=== PATIENT | female | born 1965 | race Caucasian/White ===

== ENCOUNTER 2018-04-13 10:55 | Emergency (ER) | payer MEDICARE ==
[~2018-04-13] VITALS: Ht 152.4 cm; Wt 64.4 kg
[2018-04-13 11:30] VITALS: BP 127/74
--- NOTE | 2018-04-13 12:51 | RAD ---
Left lower extremity venous Doppler. HISTORY: Left leg edema Venous Doppler was used to evaluate the veins of the left lower extremity. Real-time imaging with compression, color flow imaging and Doppler with augmentation were utilized for evaluation. The common femoral, femoral and popliteal veins are noncompressible. There was no flow with color imaging. The findings are consistent with deep venous thrombosis. There is also evidence of thrombosis of the proximal greater saphenous vein which is not compressible and extending into the origin of the deep femoral vein which is not compressible. There is also lack of compressibility of the proximal posterior tibial and peroneal veins in the calf, those veins do not have flow with color imaging.. IMPRESSION: 1. Extensive deep venous thrombosis in the left lower extremity. Electronically signed by: Iam Rivera MD (04/13/2018 12:47 PM) [facility]
[2018-04-13 13:09] LABS: BASO # 0.1 x10^3/uL (0.0-0.2); BASO % 1 % (0-3); EOS # 0.2 x10^3/uL (0.0-0.7); EOS % 2 % (0-3); HEMATOCRIT 35.2 % (36.0-47.0); LYMPH # 0.9 x10^3/uL (1.0-4.8); LYMPH % 8 % (24-48); MEAN CORPUSCULAR HEMOGLOBIN 22 pg (25-35); MEAN CORPUSCULAR HGB CONC 31 g/dL (31-37); MEAN CORPUSCULAR VOLUME 72 fL (79-100); MONO # 0.8 x10^3/uL (0.0-1.1); MONO % 7 % (0-9); NEUT # 9.4 x10^3uL (1.8-7.7); NEUT % 83 % (31-73); PLATELET COUNT 265 x10^3/uL (140-400); RED CELL DISTRIBUTION WIDTH 18.3 % (11.5-14.5); WHITE BLOOD COUNT 11.5 x10^3/uL (4.0-11.0)
[2018-04-13 13:15] LABS: PROTHROMBIN TIME PATIENT 12.6 SEC (11.7-14.0)
[2018-04-13 13:18] LABS: CALCIUM 8.9 mg/dL (8.5-10.1); CREATININE 0.7 mg/dL (0.6-1.0); GFR 87.5; POTASSIUM 4.2 mmol/L (3.5-5.1)
[2018-04-13 13:24] LABS: ALBUMIN 3.7 g/dL (3.4-5.0); ALBUMIN/GLOBULIN RATIO 0.9 (1.0-1.7); TOTAL BILIRUBIN 0.5 mg/dL (0.2-1.0)
[2018-04-13] MEDS ORDERED: ONDANSETRON ODT 4 MG TAB.RAPDIS. PO PRN (13:45)
[2018-04-13] MEDS ORDERED: ACETAMINOPHEN 500 MG TABLET PO PRN (13:45)
[2018-04-13] MEDS ORDERED: ACETAMINOPHEN/CODEINE 300/30MG TABLET. PO PRN (13:45)
[2018-04-13] MEDS ORDERED: ANTI-COAG MONITOR BY PHARMACY. MC PRN (13:45)
[2018-04-13] MEDS ORDERED: ONDANSETRON PF 4 MG/2 ML VIAL. IV PRN (13:45)
--- NOTE | 2018-04-13 13:47 | PHYS DOC ---
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 Past Surgical History: , Other Additional Past Surgical Histo: L)ankle to extend tendon,Trach & G-tube with removals. Alcohol Use: None Drug Use: None Adult General Chief Complaint Chief Complaint: LOWER EXTREMITY SWELLING [facility] HPI Patient is a 52 year old female who presents with complaining of left lower extremity edema and pain since this morning. Patient states she woke up this morning and had severe edema of left leg and thigh and pain with bearing weight. Patient denies injury, shortness of breath, fever and chills, focal neuro deficit, history of DVT and PE and recent immobilization. Patient is mildly mentally challenged. Review of Systems Review of Systems Constitutional: Denies fever or chills [] Eyes: Denies change in visual acuity, redness, or eye pain [] HENT: Denies nasal congestion or sore throat [] Respiratory: Denies cough or shortness of breath [] Cardiovascular: No additional information not addressed in HPI [] GI: Denies abdominal pain, nausea, vomiting, bloody stools or diarrhea [] : Denies dysuria or hematuria [] Musculoskeletal: Denies back pain or joint pain [] Integument: Denies rash or skin lesions [] Neurologic: Denies headache, focal weakness or sensory changes [] Endocrine: Denies polyuria or polydipsia [] All other systems were reviewed and found to be within normal limits, except as documented in this note. Current Medications Current Medications Current Medications Medications (Trade) Dose Ordered Sig/[facility] Start Time Stop Time Status Last Admin Dose Admin Enoxaparin Sodium (Lovenox 60mg Syringe) 60 mg 1X ONCE 04/13/18 13:30 04/13/18 13:31 Allergies Allergies Allergies Coded Allergies Type Severity Reaction Last Updated Verified Penicillins Allergy Unknown 04/13/18 Yes Physical Exam Physical Exam Constitutional: Well nourished, mild distress, non-toxic appearance. [] HENT: Normocephalic, atraumatic Eyes: PERRLA, EOMI, conjunctiva normal, no discharge. [] Neck: Normal range of motion, no tenderness, supple, no stridor. [] Cardiovascular:Heart rate regular rhythm, no murmur [] Lungs & Thorax: Bilateral breath sounds clear to auscultation [] Skin: Warm, dry, no erythema, no rash. [] Back: No tenderness, no CVA tenderness. [] Extremities: Left lower extremity with moderate edema and increased size of lower extremity from toes to upper thigh with mild erythema without neurovascular deficit, good peripheral pulses Neurologic: Alert and oriented X 3, normal motor function, normal sensory function, no focal deficits noted. [] Psychologic: Affect normal, judgement normal, mood normal. [] Current Patient Data Vital Signs Vital Signs Date Time Temp Pulse Resp B/P (MAP) Pulse Ox O2 Delivery O2 Flow Rate FiO2 04/13/18 11:30 98.6 94 18 127/74 (91) 98 Room Air 98.6 Lab Values Laboratory Tests Test 04/13/18 12:15 White Blood Count 11.5 x10^3/uL (4.0-11.0) H Red Blood Count 4.90 x10^6/uL (3.50-5.40) Hemoglobin 11.0 g/dL (12.0-15.5) L Hematocrit 35.2 % (36.0-47.0) L Mean Corpuscular Volume 72 fL (79-100) L Mean Corpuscular Hemoglobin 22 pg (25-35) L Mean Corpuscular Hemoglobin Concent 31 g/dL (31-37) Red Cell Distribution Width 18.3 % (11.5-14.5) H Platelet Count 265 x10^3/uL (140-400) Neutrophils (%) (Auto) 83 % (31-73) H Lymphocytes (%) (Auto) 8 % (24-48) L Monocytes (%) (Auto) 7 % (0-9) Eosinophils (%) (Auto) 2 % (0-3) Basophils (%) (Auto) 1 % (0-3) Neutrophils # (Auto) 9.4 x10^3uL (1.8-7.7) H Lymphocytes # (Auto) 0.9 x10^3/uL (1.0-4.8) L Monocytes # (Auto) 0.8 x10^3/uL (0.0-1.1) Eosinophils # (Auto) 0.2 x10^3/uL (0.0-0.7) Basophils # (Auto) 0.1 x10^3/uL (0.0-0.2) Platelet Estimate Pending Laboratory Tests 04/13/18 12:15 EKG EKG [] Radiology/Procedures Radiology/Procedures [facility] [address] [place] [address] IMAGING REPORT Signed PATIENT: ANN GOMEZ ACCOUNT: [id number] : 1965 LOCATION: ER AGE: 52 SEX: F EXAM STATUS: REG ER ORD. PHYSICIAN: ALANA KUO MD REASON: edema PROCEDURE: VENOUS LOWER EXTREMITY LEFT Left lower extremity venous Doppler. HISTORY: Left leg edema Venous Doppler was used to evaluate the veins of the left lower extremity. Real-time imaging with compression, color flow imaging and Doppler with augmentation were utilized for evaluation. The common femoral, femoral and popliteal veins are noncompressible. There was no flow with color imaging. The findings are consistent with deep venous thrombosis. There is also evidence of thrombosis of the proximal greater saphenous vein which is not compressible and extending into the origin of the deep femoral vein which is not compressible. There is also lack of compressibility of the proximal posterior tibial and peroneal veins in the calf, those veins do not have flow with color imaging.. IMPRESSION: 1. Extensive deep venous thrombosis in the left lower extremity. Electronically signed by: Iam Rivera MD (04/13/2018 12:47 PM) [facility] DICTATED and SIGNED BY: IAM RIVERA MD DATE: 04/13/18 1619 Course & Med Decision Making Course & Med Decision Making Pertinent Labs and Imaging studies reviewed. (See chart for details) Evaluation of patient in ER showed 52-year-old female patient with complaining of sudden onset of left lower extremity edema and erythema and pain. Patient had a large DVT in left lower extremity. Because of the eye and large DVT plan to admit patient for inpatient treatment. Patient treated with Lovenox in ER. accepted admission at 1330. Dragon Disclaimer Dragon Disclaimer This electronic medical record was generated, in whole or in part, using a voice recognition dictation system. Departure Departure Impression: Primary Impression: Deep vein thrombosis (DVT) of left lower extremity Additional Impression: TBI (traumatic brain injury) Disposition: ADMITTED INPATIENT (at 1331) Admitting Physician: Deidra Koo (accepted admission at 1330) Condition: STABLE Referrals: LEONID SMITH MD (PCP) Problem Qualifiers ALANA KUO MD Apr 13, 2018 13:47
--- NOTE | 2018-04-13 13:56 | PDOC ---
Provider Note Provider Note I was called by ER Bethany to admit this very pleasant 51-year-old female for an extensive left leg DVT, unprovoked She woke up today with left leg swelling and pain. Found to have extensive DVT, femoral, popliteal, etc. I have provided a copy to the caregiver. Both of them do not want to be admitted. She denies any SOA. She is hemodynamically stable. Labs are remarkable only for mild hyponatremia 130 with mild leukocytosis 11. Hemoglobin is stable at 11. Dr. Jackson is her PCP. She would rather go home on Xarelto 15 twice a day for 7 days then 20 once a day rather than stay in the hospital. She has Medicare. She doesn't mind paying the expense, I am ok with that, I have also also offered the free drug 1 month supply for novel OAC, buts he was ok with the xarelto rx i have given for her. We did draw hypercoag panel bec this is unprovoked. SHe is ambulatory, no recent sxs or long travels, Deneis fam hx of hypercoag state. Past medical history none Past surgical history noncontributory s Social history - no smoking or alcohol or street drugs Review of systems: neg 14 pt reviewed PE: A and O 3,HEENT unremarkable. CTABL, no murmurs or gallops abdomen soft and unremarkable left leg swelling redness but no open lesions, limited range of motion because of the swelling neuro and psych UR A/P: Extensive lEft leg dvt, unprovoked, first episode PLAN:ok for home on xarelto 15 BID x 21 days then 20 qD x 3 mos - with interval US left leg 1 month time SEEN at ER [facility] staff and RN at bedside with the rn intensive care unit DANIELLE EDWARDS MD Apr 13, 2018 13:56
[2018-04-13 14:24] LABS: ANISOCYTOSIS SLIGHT; HYPOCHROMIA MOD; MICROCYTOSIS MOD; OVALOCYTES FEW; PLT ESTIMATE ADEQUATE (ADEQUATE); POLYCHROMASIA SLIGHT
[2018-04-18 06:52] LABS: ANTITHROMBIN III SEE SEPARATE REPORT; CARDIOLIPIN ANTIBODIES SEE SEPARATE REPORT; LUPUS ANTICOAGULANT SEE SEPARATE REPORT; PROTEIN C ACTIVITY SEE SEPARATE REPORT; PROTEIN S ACTIVITY SEE SEPARATE REPORT
== END 2018-04-13 15:39 | disposition home or self-care (01) ==
LOC: ER 10:55
DX: S06.9X0A Unspecified intracranial injury without loss of consciousness, initial encounter (principal); I82.492 Acute embolism and thrombosis of other specified deep vein of left lower extremity; Z86.711 Personal history of pulmonary embolism; Z88.0 Allergy status to penicillin; X58.XXXA Exposure to other specified factors, initial encounter; Y93.89 Activity, other specified; Y92.89 Other specified places as the place of occurrence of the external cause; Y99.8 Other external cause status
CPT/HCPCS: 36415; 80053; 83090; 83605; 83880; 85025; 85610; 93971; 96372; 99285; J1650; 85300; 85302; 85306; 86147

== ENCOUNTER 2018-07-05 13:10 | Inpatient (IN) | payer MEDICARE ==
[2018-07-05] VITALS (15 sets, daily range): BP systolic 99–122; BP diastolic 55–75
[~2018-07-05] VITALS: Ht 152.4 cm; Wt 66.3 kg
[2018-07-05] MEDS ORDERED: IV NORMAL SALINE 1000ML BAG 1,000 ML IV ONE (13:30)
[2018-07-05 13:48] LABS: BASO # 0.1 x10^3/uL (0.0-0.2); BASO % 1 % (0-3); EOS % 0 % (0-3); LYMPH % 8 % (24-48); MEAN CORPUSCULAR HEMOGLOBIN 18 pg (25-35); MEAN CORPUSCULAR HGB CONC 29 g/dL (31-37); MEAN CORPUSCULAR VOLUME 61 fL (79-100); MONO # 0.7 x10^3/uL (0.0-1.1); MONO % 5 % (0-9); NEUT # 11.4 x10^3uL (1.8-7.7); NEUT % 86 % (31-73); PLATELET COUNT 274 x10^3/uL (140-400); RED BLOOD COUNT 1.86 x10^6/uL (3.50-5.40); RED CELL DISTRIBUTION WIDTH 18.8 % (11.5-14.5); WHITE BLOOD COUNT 13.2 x10^3/uL (4.0-11.0)
[2018-07-05 13:57] LABS: HEMATOCRIT 11.3 % (36.0-47.0)
[2018-07-05 13:58] LABS: HEMOGLOBIN 3.3 g/dL (12.0-15.5)
--- NOTE | 2018-07-05 13:58 | PHYS DOC ---
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 Past Surgical History: , Other Additional Past Surgical Histo: L)ankle to extend tendon,Trach & G-tube with removals. Additional Information: nonsmoker Alcohol Use: None Drug Use: None Adult General Chief Complaint Chief Complaint: ABNORMAL LABS HPI HPI Patient is a 53 YO F that is presenting with increased shortness of breath that developed recently and vaginal bleeding that began in April. She has a past medical history of multiple strokes, she was put on Xarelto in April because of a DVT that was found. She presented to her family doctor to be evaluated and the family doctor jakob labs, sent her for outpatient LE ultrasound and transvaginal ultrasound.Today the Hgb came back as 3.4 and she was told to come straight to the hospital from the imaging center. She arrived with a CD of the images but no reports. Dr. Koo was contacted by the family doctor and she thought it was in her best interest to be evaluated in the ED before admission because of the critical lab value. Patient reports lethargy and some shortness of breath. She denies bloody stools, blood in her urine, abdominal pain, nausea , vomiting, and dizziness. Review of Systems Review of Systems Constitutional: Denies fever or chills [] Eyes: Denies change in visual acuity, redness, or eye pain [] HENT: Denies nasal congestion or sore throat [] Respiratory: Denies cough, reports shortness of breath [] Cardiovascular: Denies chest pain or palpitations [] GI: Denies abdominal pain, nausea, vomiting, bloody stools or diarrhea [] : Denies dysuria or hematuria [] Musculoskeletal: Denies back pain or joint pain [] Integument: Denies rash or skin lesions [] Neurologic: Denies headache, focal weakness or sensory changes [] Complete systems were reviewed and found to be within normal limits, except as documented in this note. Current Medications Current Medications Current Medications Medications (Trade) Dose Ordered Sig/Sigifredo Start Time Stop Time Status Last Admin Dose Admin Medroxyprogesterone Acetate (Provera) 10 mg STAT 07/05/18 14:15 07/05/18 14:43 DC Sodium Chloride 1,000 ml @ 1,000 mls/hr 1X ONCE 07/05/18 13:30 07/05/18 14:29 DC 07/05/18 13:47 1,000 MLS/HR Allergies Allergies Allergies Coded Allergies Type Severity Reaction Last Updated Verified Penicillins Allergy Unknown 04/13/18 Yes Physical Exam Physical Exam Constitutional: Well developed, well nourished, no acute distress, non-toxic appearance. [] HENT: Normocephalic, atraumatic, nose normal, dry mucus membranes. [] Eyes: Pale conjunctiva, no discharge. [] Neck: Normal range of motion, no tenderness, supple. [] Cardiovascular: Heart rate regular rhythm, no murmur [] Lungs & Thorax: Bilateral breath sounds clear to auscultation [] Abdomen: Soft, no tenderness, no masses, no pulsatile masses. [] Skin: Warm, dry, no erythema, no rash. [] Back: No tenderness, no CVA tenderness. [] Extremities: No tenderness, no edema. [] Neurologic: Alert and oriented X 3, no focal deficits noted. [] Psychologic: Affect normal, judgement normal, mood normal. [] Current Patient Data Vital Signs Vital Signs Date Time Temp Pulse Resp B/P (MAP) Pulse Ox O2 Delivery O2 Flow Rate FiO2 07/05/18 14:30 107 21 116/56 (76) 100 Room Air 07/05/18 13:15 97.7 97.7 Lab Values Laboratory Tests Test 07/05/18 13:30 07/05/18 14:30 White Blood Count 13.2 x10^3/uL (4.0-11.0) H Red Blood Count 1.86 x10^6/uL (3.50-5.40) L Hemoglobin 3.3 g/dL (12.0-15.5) *L Hematocrit 11.3 % (36.0-47.0) *L Mean Corpuscular Volume 61 fL (79-100) L Mean Corpuscular Hemoglobin 18 pg (25-35) L Mean Corpuscular Hemoglobin Concent 29 g/dL (31-37) L Red Cell Distribution Width 18.8 % (11.5-14.5) H Platelet Count 274 x10^3/uL (140-400) Neutrophils (%) (Auto) 86 % (31-73) H Lymphocytes (%) (Auto) 8 % (24-48) L Monocytes (%) (Auto) 5 % (0-9) Eosinophils (%) (Auto) 0 % (0-3) Basophils (%) (Auto) 1 % (0-3) Neutrophils # (Auto) 11.4 x10^3uL (1.8-7.7) H Lymphocytes # (Auto) 1.0 x10^3/uL (1.0-4.8) Monocytes # (Auto) 0.7 x10^3/uL (0.0-1.1) Eosinophils # (Auto) 0.0 x10^3/uL (0.0-0.7) Basophils # (Auto) 0.1 x10^3/uL (0.0-0.2) Segmented Neutrophils % 94 % (35-66) H Lymphocytes % 3 % (24-48) L Monocytes % 2 % (0-10) Basophils % 1 % (0-3) Platelet Estimate Adequate (ADEQUATE) Hypochromasia Marked Anisocytosis Slight Microcytosis Marked Ovalocytes Occ Prothrombin Time 18.2 SEC (11.7-14.0) H Prothrombin Time INR 1.5 (0.8-1.1) H PTT 30 SEC (24-38) Sodium Level 133 mmol/L (136-145) L Potassium Level 3.1 mmol/L (3.5-5.1) L Chloride Level 100 mmol/L (98-107) Carbon Dioxide Level 22 mmol/L (21-32) Anion Gap 11 (6-14) Blood Urea Nitrogen 11 mg/dL (7-20) Creatinine 0.7 mg/dL (0.6-1.0) Estimated GFR (Cockcroft-Gault) 87.2 BUN/Creatinine Ratio 16 (6-20) Glucose Level 120 mg/dL (70-99) H Calcium Level 8.4 mg/dL (8.5-10.1) L Magnesium Level 2.0 mg/dL (1.8-2.4) Total Bilirubin 0.6 mg/dL (0.2-1.0) Aspartate Amino Transferase (AST) 11 U/L (15-37) L Alanine Aminotransferase (ALT) 18 U/L (14-59) Alkaline Phosphatase 62 U/L (46-116) Total Protein 7.0 g/dL (6.4-8.2) Albumin 3.3 g/dL (3.4-5.0) L Albumin/Globulin Ratio 0.9 (1.0-1.7) L Urine Collection Type Unknown Urine Color Yellow Urine Clarity Cloudy Urine pH 6.0 Urine Specific [place] 1.010 Urine Protein Negative mg/dL (NEG-TRACE) Urine Glucose (UA) Negative mg/dL (NEG) Urine Ketones (Stick) Negative mg/dL (NEG) Urine Blood Large (NEG) Urine Nitrite Negative (NEG) Urine Bilirubin Negative (NEG) Urine Urobilinogen Dipstick 0.2 mg/dL (0.2 mg/dL) Urine Leukocyte Esterase Large (NEG) Urine RBC 0 /HPF (0-2) Urine WBC >40 /HPF (0-4) Urine Squamous Epithelial Cells Mod /LPF Urine Bacteria Many /HPF (0-FEW) Urine Mucus Mod /LPF Urine Test Negative (NEG) Laboratory Tests 07/05/18 13:30 Laboratory Tests 07/05/18 13:30 EKG EKG @1401 sinus tachycardia at 106BPM, left axis deviation, no ST segment elevation Radiology/Procedures Radiology/Procedures PROCEDURE: CT ABD PELV W/ IV CONTRST ONLY CTA chest with contrast and CT abdomen pelvis with contrast dated 07/05/2018. No comparison available. CLINICAL INDICATION: Dyspnea abdominal pain and vaginal bleeding. History of DVT. TECHNIQUE: Contiguous axial imaging of the chest performed after the intravenous administration of 90 cc Omnipaque 350. Study was performed as dedicated protocol with thin cut coronal MIPS 3-D reconstructions. In addition, through the abdomen and pelvis performed in the venous phase. One or more of the following individualized dose reduction techniques were utilized for this examination: 1. Automated exposure control 2. Adjustment of the mA and/or kV according to patient size 3. Use of iterative reconstruction technique Findings: Contrast bolus is adequate. No evidence of central, lobar or segmental pulmonary embolus. Subsegmental branches are not well evaluated based on technique. Heart size within normal limits. No pericardial effusion. There are calcified pretracheal and left hilar lymph nodes. No mediastinal, hilar or axillary lymphadenopathy. Thyroid gland unremarkable. Central airways are patent. Vague groundglass nodular density in the anterior aspect of the right lower lobe measures 9 mm. Lungs are otherwise clear. No consolidation or pleural effusion. No pneumothorax. Mild emphysema. Images of the upper abdomen show small low-density focus in the left lobe liver, likely cyst. Biliary tree normal in caliber. There is a large calcific stone within the gallbladder lumen. No gallbladder wall thickening or pericholecystic fluid. Spleen is normal in size. Adrenal glands and kidneys are unremarkable. No hydronephrosis. Partially opacified GI tract normal in caliber and contour. No focal bowel wall thickening. No inflammatory stranding in the mesentery. The appendix is not clearly identified. No free fluid or lymphadenopathy. Abdominal aorta normal in caliber. The uterus is enlarged measuring 17.7 x 9.3 x 20.2 cm. There multiple mass lesions throughout the myometrium. The endometrial complex is somewhat thickened measuring 1.9 cm. Ovaries are unremarkable. There is a 2 cm ovarian cyst on the right. The mass lesions of the uterus appears to abut and displace the urinary bladder toward the left. There is also possible abutment and compression of the right ureter with mild right-sided pelvocaliectasis. Lesion also abuts the aorta and IVC with associated caval compression. There are prominent gonadal veins, particularly on the right. No significant free fluid or pelvic lymphadenopathy. Bone windows show no acute findings. Multilevel spondylosis. IMPRESSION CHEST: 1. No evidence of central, lobar or segmental pulmonary embolus. 2. Vague groundglass nodular density in the anterior aspect of the right lower lobe, nonspecific. 3. Old granulomatous disease. Impression abdomen pelvis: 1. Large myomatous uterus as described above. 2. The enlarged uterine fibroids appear to compress the urinary bladder. There is also likely compression of the distal right ureter and IVC with mild right-sided pelvocaliectasis and prominent collateral flow of the gonadal veins. No CT evidence of abdominal pelvic venous thrombosis. 3. Cholelithiasis. Electronically signed by: Otf Rodriguez MD (07/05/2018 3:50 PM) [id number] Course & Med Decision Making Course & Med Decision Making Pertinent Labs and Imaging studies reviewed. (See chart for details) Patient is a 53 YO F that is presenting with 4 months of vaginal bleeding after starting Xarelto for a DVT. She was found to have a Hgb of 3.3 on outpatient CBC ordered by her family physician. Hgb rechecked in the ED was found to be 3.4. Transfusion initiated. CT chest/abdomen/pelvis showed no evidence of central, lobar or segmental pulmonary embolus, vague groundglass nodular density in the anterior aspect of the right lower lobe, nonspecific, large myomatous uterus appears to compress the urinary bladder there is also likely compression of the distal right ureter and IVC. UA showed probable UTI with white cells and bacteria, antibiotics initiated. EKG WNL, no ST segment elevation. Dragon Disclaimer Dragon Disclaimer This electronic medical record was generated, in whole or in part, using a voice recognition dictation system. Departure Departure Impression: Primary Impression: Severe anemia Additional Impressions: Hx of deep venous thrombosis Menometrorrhagia Disposition: ADMITTED INPATIENT Admitting Physician: Deidra Koo Condition: GUARDED Referrals: LEONID SMITH MD (PCP) Critical Care Time Critical care time was 30 minutes which includes time at bedside, spent in discussion of patient's care with specialists and/or family members, with interpretation of laboratory and/or radiological studies and is exclusive of procedures. Problem Qualifiers OTF HARMON DO Jul 05, 2018 13:58
[2018-07-05 14:05] LABS: PROTHROMBIN TIME PATIENT 18.2 SEC (11.7-14.0)
[2018-07-05 14:12] LABS: ALBUMIN 3.3 g/dL (3.4-5.0); ALBUMIN/GLOBULIN RATIO 0.9 (1.0-1.7); CALCIUM 8.4 mg/dL (8.5-10.1); CREATININE 0.7 mg/dL (0.6-1.0); GFR 87.2; TOTAL BILIRUBIN 0.6 mg/dL (0.2-1.0)
--- NOTE | 2018-07-05 14:16 | EKG ---
[facility] [address] [place] [address] Test Date: 2018-07-05 Test Time: 14:01:35 Pat Name: ANN GOMEZ Department: Room: Gender: F Sponsorship Coordinator: : 1965 Requested By: JENN HARMON Order Number: [id number] Reading MD: Puneet Arrington Measurements Intervals [place] Rate: 106 P: 38 GA: 142 QRS: 0 QRSD: 78 T: 13 QT: 348 QTc: 464 Interpretive Statements SINUS TACHYCARDIA LEFTWARD AXIS QRS(T) CONTOUR ABNORMALITY CONSISTENT WITH POSSIBLE OLD INFERIOR INFARCT Electronically Signed On 07-08-2018 9:51:10 ROUTE DELIVERY CLERK by Puneet Arrington
--- NOTE | 2018-07-05 14:26 | PDOC1 ---
History and Physical Date of Admission Date of Admission DATE: 07/05/18 TIME: 14:16 Identification/Chief Complaint Chief Complaint Weak, sent in by PCP for hemoglobin of 3.3 Source Source: Caregiver, Chart review, Patient History of Present Illness History of Present Illness 53-year-old female with some mental delay ever since she had a complicated and delivery of her son some decades ago caused her to be trached and pegged in any case now has a little bit of slowness or mental delay. There is a foster mom at bedside and is taking care of her since age 17. She was sent in by her PCP because of hemoglobin 3.3, she looks pale his sheets , with pale palpebral conjunctivae. In April or May 2080 she was diagnosed with extensive left leg DVT T, unprovoked but likely from decreased mobility ever since her traumatic incident when she had her complicated delivery via section. She was started on Xarelto 20 mg and has only 12 days worth of pills left to go. She is having menorrhagia more than her usual. As per foster mother, she usually bleeds 7 days first few days are heavy the succeeding days are light. But now she has been bleeding profusely heavy with menstrual cramps. NO mention of blood in stool or melena. NEver had a cscope. She is done with kids and does not wish to have more. She hands me a disc of her recent left leg ultrasound interval follow-up and also a uterine ultrasound of which we do not have the official results yet. On repeat hemoglobin here, it is indeed 3.3 with leukocytosis 13. We are transfusing, I'm giving Provera with [employer] consult. We will need official read of those ultrasounds of the uterus and the left leg. Of course withholding Xarelto for now. Plan of care discussed with the mother at bedside seen at ER and agreeable ER Bethany has ordered CT angio of the chest rule out PE in this patient with history of DVT etc. SHe is tachy but not hypoxic Past Medical History Heme/Onc: Other (dvt) Psych: Other (mental delay) Past Surgical History Past Surgical History: Family History Family History: Family History Unknown, Adopted Social History Smoke: No ALCOHOL: none Drugs: None Current Medications Current Medications Current Medications Sodium Chloride 1,000 ml @ 1,000 mls/hr 1X ONCE IV Last administered on at 13:47; Start 07/05/18 at 13:30; Stop 07/05/18 at 14:29 Medroxyprogesterone Acetate (Provera) 10 mg STAT PO ; Start 07/05/18 at 14:15; Status UNV Allergies Allergies: Coded Allergies: Penicillins (Verified Allergy, Unknown, 04/13/18) ROS Review of System Weak and menorrhagia, the rest of the ROS 14 point negative she denies any chest pains Admits to SOA Physical Exam General: No acute distress HEENT: Atraumatic, PERRLA, Other (pale palpebral conjunctivae, anicteric sclerae) Lungs: Clear to auscultation Heart: S1S2, no thrills, no rubs, no gallops, no murmurs, no jug vein distention, other (sinus tachycardia) Cardiovascular: S1, S2 Breasts: Normal, Rt breast nml w/o mass, Lt breast nml w/o mass, Nipples normal Abdomen: Normal bowel sounds, Soft, No tenderness, No hepatosplenomegaly, No masses Rectal Exam: not examined PELVIC: Nml ext genitalia Extremities: No clubbing, No cyanosis, No edema, Normal pulses, No tenderness/ swelling Skin: No rashes, No breakdown, No significant lesion Neuro: Normal gait, Strength at 5/5 X4 ext, Normal tone, Sensation intact, Cranial nerves 3-12 NL, Reflexes 2+, Other (slow to speech or answer) Psych/Mental Status: Mental status NL, Mood NL Vitals Vitals Vital Signs Date Time Temp Pulse Resp B/P (MAP) Pulse Ox O2 Delivery O2 Flow Rate FiO2 07/05/18 13:15 97.7 113 24 124/60 (81) 100 Room Air 97.7 Labs Labs Laboratory Tests Test 07/05/18 13:30 White Blood Count 13.2 x10^3/uL (4.0-11.0) Red Blood Count 1.86 x10^6/uL (3.50-5.40) Hemoglobin 3.3 g/dL (12.0-15.5) Hematocrit 11.3 % (36.0-47.0) Mean Corpuscular Volume 61 fL (79-100) Mean Corpuscular Hemoglobin 18 pg (25-35) Mean Corpuscular Hemoglobin Concent 29 g/dL (31-37) Red Cell Distribution Width 18.8 % (11.5-14.5) Platelet Count 274 x10^3/uL (140-400) Neutrophils (%) (Auto) 86 % (31-73) Lymphocytes (%) (Auto) 8 % (24-48) Monocytes (%) (Auto) 5 % (0-9) Eosinophils (%) (Auto) 0 % (0-3) Basophils (%) (Auto) 1 % (0-3) Neutrophils # (Auto) 11.4 x10^3uL (1.8-7.7) Lymphocytes # (Auto) 1.0 x10^3/uL (1.0-4.8) Monocytes # (Auto) 0.7 x10^3/uL (0.0-1.1) Eosinophils # (Auto) 0.0 x10^3/uL (0.0-0.7) Basophils # (Auto) 0.1 x10^3/uL (0.0-0.2) Prothrombin Time 18.2 SEC (11.7-14.0) Prothromb Time International Ratio 1.5 (0.8-1.1) Activated Partial Thromboplast Time 30 SEC (24-38) Laboratory Tests Test 07/05/18 13:30 White Blood Count 13.2 x10^3/uL (4.0-11.0) Red Blood Count 1.86 x10^6/uL (3.50-5.40) Hemoglobin 3.3 g/dL (12.0-15.5) Hematocrit 11.3 % (36.0-47.0) Mean Corpuscular Volume 61 fL (79-100) Mean Corpuscular Hemoglobin 18 pg (25-35) Mean Corpuscular Hemoglobin Concent 29 g/dL (31-37) Red Cell Distribution Width 18.8 % (11.5-14.5) Platelet Count 274 x10^3/uL (140-400) Neutrophils (%) (Auto) 86 % (31-73) Lymphocytes (%) (Auto) 8 % (24-48) Monocytes (%) (Auto) 5 % (0-9) Eosinophils (%) (Auto) 0 % (0-3) Basophils (%) (Auto) 1 % (0-3) Neutrophils # (Auto) 11.4 x10^3uL (1.8-7.7) Lymphocytes # (Auto) 1.0 x10^3/uL (1.0-4.8) Monocytes # (Auto) 0.7 x10^3/uL (0.0-1.1) Eosinophils # (Auto) 0.0 x10^3/uL (0.0-0.7) Basophils # (Auto) 0.1 x10^3/uL (0.0-0.2) Prothrombin Time 18.2 SEC (11.7-14.0) Prothromb Time International Ratio 1.5 (0.8-1.1) Activated Partial Thromboplast Time 30 SEC (24-38) VTE Prophylaxis Ordered VTE Prophylaxis Devices: Contraindicated VTE Pharmacological Prophylaxi: Contraindicated Assessment/Plan Assessment/Plan Precipitous drop in hemoglobin-hgb 3.3 on admission Reactive leukocytosis in the background of severe anemia Menorrhagia-perimenopausal Recent unprovoked DVT extensive left leg-started on Xarelto April or May 2018 PLAN: Admit 2 mN Hold Xarelto In the light that her hemoglobin is 3.3, I gather she will need around 4 units prbC -ER M.D. has put in 2 units. Okay to repeat H&H after 2 packed RBC that we shall go from there CBC again tomorrow monitor that leukocytosis - should get better with resolution of anemia Obviously, hold Xarelto We need official read of the ultrasound of the leg and uterus - see orders Provera 10 mg PO now then possibly 10 by mouth twice a day? Pending HEAD CHEF eval Consult HEAD CHEF for menorrhagia TRansfuse blood stat tonight Seen at ER, discussed with foster mother at bedside [id number] DANIELLE EDWARDS MD Jul 05, 2018 14:26
[2018-07-05 14:41] LABS: BILIRUBIN,URINE NEGATIVE (NEG); CLARITY,URINE CLOUDY; COLOR,URINE YELLOW; NITRITE,URINE NEGATIVE (NEG); PROTEIN,URINE NEGATIVE (NEG-TRACE); UROBILINOGEN,URINE 0.2 mg/dL (0.2 mg/dL)
[2018-07-05 14:42] LABS: POTASSIUM 3.1 mmol/L (3.5-5.1)
[2018-07-05] MEDS ORDERED: IOHEXOL 350 MG/ML 100 ML VIAL. ONE (14:43)
[2018-07-05] MEDS ORDERED: ONDANSETRON PF 4 MG/2 ML VIAL. IV PRN ×2 (14:45)
[2018-07-05] MEDS ORDERED: IOHEXOL 350 MG/ML 100 ML VIAL. IV ONE ×2 (14:45→15:30)
[2018-07-05] MEDS ORDERED: ACETAMINOPHEN/CODEINE 300/30MG TABLET. PO PRN (14:45)
[2018-07-05] MEDS ORDERED: diphenhydrAMINE HCL 25 MG CAPSULE PO PRN (14:45)
[2018-07-05] MEDS ORDERED: ACETAMINOPHEN 500 MG TABLET PO PRN (14:45)
[2018-07-05] MEDS ORDERED: ONDANSETRON ODT 4 MG TAB.RAPDIS. PO PRN (14:45)
[2018-07-05 14:46] LABS: U PREG PATIENT NEGATIVE (NEG)
[2018-07-05 14:53] LABS: SQUAMOUS EPITHELIAL CELL,UR MOD /LPF
[2018-07-05 14:54] LABS: BACTERIA,URINE MANY /HPF (0-FEW); RBC,URINE 0 /HPF (0-2); WBC,URINE >40 /HPF (0-4)
[2018-07-05 14:57] LABS: % BASOS 1 % (0-3); % LYMPHS 3 % (24-48); % MONOS 2 % (0-10); % SEGS 94 % (35-66)
[2018-07-05 14:58] LABS: ANISOCYTOSIS SLIGHT; HYPOCHROMIA MARKED; MICROCYTOSIS MARKED; OVALOCYTES OCC; PLT ESTIMATE ADEQUATE (ADEQUATE)
[2018-07-05] MEDS ORDERED: CONTRAST GIVEN. MC PRN (15:30)
[2018-07-05] MEDS ORDERED: POTASSIUM CHLORIDE 20 MEQ TABLET.ER. PO ONE ×2 (15:45→19:00)
--- NOTE | 2018-07-05 15:55 | RAD ---
CTA chest with contrast and CT abdomen pelvis with contrast dated 07/05/2018. No comparison available. CLINICAL INDICATION: Dyspnea abdominal pain and vaginal bleeding. History of DVT. TECHNIQUE: Contiguous axial imaging of the chest performed after the intravenous administration of 90 cc Omnipaque 350. Study was performed as dedicated protocol with thin cut coronal MIPS 3-D reconstructions. In addition, through the abdomen and pelvis performed in the venous phase. One or more of the following individualized dose reduction techniques were utilized for this examination: 1. Automated exposure control 2. Adjustment of the mA and/or kV according to patient size 3. Use of iterative reconstruction technique Findings: Contrast bolus is adequate. No evidence of central, lobar or segmental pulmonary embolus. Subsegmental branches are not well evaluated based on technique. Heart size within normal limits. No pericardial effusion. There are calcified pretracheal and left hilar lymph nodes. No mediastinal, hilar or axillary lymphadenopathy. Thyroid gland unremarkable. Central airways are patent. Vague groundglass nodular density in the anterior aspect of the right lower lobe measures 9 mm. Lungs are otherwise clear. No consolidation or pleural effusion. No pneumothorax. Mild emphysema. Images of the upper abdomen show small low-density focus in the left lobe liver, likely cyst. Biliary tree normal in caliber. There is a large calcific stone within the gallbladder lumen. No gallbladder wall thickening or pericholecystic fluid. Spleen is normal in size. Adrenal glands and kidneys are unremarkable. No hydronephrosis. Partially opacified GI tract normal in caliber and contour. No focal bowel wall thickening. No inflammatory stranding in the mesentery. The appendix is not clearly identified. No free fluid or lymphadenopathy. Abdominal aorta normal in caliber. The uterus is enlarged measuring 17.7 x 9.3 x 20.2 cm. There multiple mass lesions throughout the myometrium. The endometrial complex is somewhat thickened measuring 1.9 cm. Ovaries are unremarkable. There is a 2 cm ovarian cyst on the right. The mass lesions of the uterus appears to abut and displace the urinary bladder toward the left. There is also possible abutment and compression of the right ureter with mild right-sided pelvocaliectasis. Lesion also abuts the aorta and IVC with associated caval compression. There are prominent gonadal veins, particularly on the right. No significant free fluid or pelvic lymphadenopathy. Bone windows show no acute findings. Multilevel spondylosis. IMPRESSION CHEST: 1. No evidence of central, lobar or segmental pulmonary embolus. 2. Vague groundglass nodular density in the anterior aspect of the right lower lobe, nonspecific. 3. Old granulomatous disease. Impression abdomen pelvis: 1. Large myomatous uterus as described above. 2. The enlarged uterine fibroids appear to compress the urinary bladder. There is also likely compression of the distal right ureter and IVC with mild right-sided pelvocaliectasis and prominent collateral flow of the gonadal veins. No CT evidence of abdominal pelvic venous thrombosis. 3. Cholelithiasis. Electronically signed by: Otf Rodriguez MD (07/05/2018 3:50 PM) [id number]
[2018-07-05] MEDS ORDERED: cefTRIAXone IV Push 1 GM VIAL. IVP ONE (16:15)
--- NOTE | 2018-07-05 17:08 | NUR ---
ADMIT NOTE The patient, ANN GOEMZ, 53 y/o, F admitted by DANIELLE EDWARDS MD, was given written information regarding hospital policies, unit procedures and contact persons. Consents for blood administration signed by Mother at bedside. 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 VSS, HR 105, 110/68, Resp. 20, Room air 99%. Very Pale Patient ambulated unassisted to bed from ED cart; did get some ESPINAL No abdominal pain per patient. Menstruation had stopped. 1 Unit PRBCs currently infusing. Rocephen given IVP; and saline flush; patient did get nauseated d/t metallic taste (zofran given-- see eMAR). ED RN called to verify that Dr. Ryder GARCIA is aware of patient. NPO currently. Will continue to closely monitor Ba PERSAUD RN
[2018-07-05 20:05] LABS: HEMATOCRIT 22.1 % (36.0-47.0); RED CELL DISTRIBUTION WIDTH 28.6 % (11.5-14.5); WHITE BLOOD COUNT 16.9 x10^3/uL (4.0-11.0)
[2018-07-05 20:14] LABS: HEMOGLOBIN 6.7 g/dL (12.0-15.5)
--- NOTE | 2018-07-05 21:05 | NUR ---
Dr. Koo notified at this time that patient temp post transfusion, now 2 hours after completion of 2nd unit (given by day shift) is elevated 2 degrees Fahrenheit since 1800 temp check, temp now at 100.2F. It was 99.8F at 2100 one hour post transfusion. Pt has no other abnormal symptoms, no skin rash, no difficulty breathing. I reported to physician pt last hemoglobin and order to transfuse 2 more units if hgb was not greater than 8. states give prn tylenol and benadryl and give one more unit PRBC tonight and recheck H&H in am.
[2018-07-06] VITALS (14 sets, daily range): BP systolic 85–126; BP diastolic 50–71
[2018-07-06 04:52] LABS: BASO # 0.1 x10^3/uL (0.0-0.2); BASO % 1 % (0-3); EOS # 0.3 x10^3/uL (0.0-0.7); EOS % 2 % (0-3); HEMOGLOBIN 7.1 g/dL (12.0-15.5); LYMPH # 1.9 x10^3/uL (1.0-4.8); LYMPH % 14 % (24-48); MEAN CORPUSCULAR HEMOGLOBIN 23 pg (25-35); MEAN CORPUSCULAR HGB CONC 31 g/dL (31-37); MEAN CORPUSCULAR VOLUME 76 fL (79-100); MONO # 0.7 x10^3/uL (0.0-1.1); MONO % 5 % (0-9); NEUT % 78 % (31-73); PLATELET COUNT 126 x10^3/uL (140-400); RED BLOOD COUNT 3.04 x10^6/uL (3.50-5.40); RED CELL DISTRIBUTION WIDTH 27.8 % (11.5-14.5); WHITE BLOOD COUNT 12.9 x10^3/uL (4.0-11.0)
--- NOTE | 2018-07-06 08:23 | NUR ---
Nursing Note Final unit of PRBCs received and infusing now; Dr. Soler wanted HGB >8 prior to procedure at 0930. Will recheck H and H when unit complete. Patient's vitals and temp WNL; patient also has UTI. Ba PERSAUD RN
--- NOTE | 2018-07-06 09:03 | PDOC ---
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 Hemoglobin 7.1-MCV 76-VALIDATION ARCHITECT will do a pelvic exam later hence advised more 1 unit packed RBC Patient ate breakfast Bleeding has somewhat abated after getting Provera 10 mg by mouth �1-some blackish vaginal discharge as per staff this AM only I discussed the CT abd findings of the large fibroid uterus with her and her foster mom No PE on CTA Plan: Transfuse one more as per VALIDATION ARCHITECT- Pelvic exam later by VALIDATION ARCHITECT E She does have UTI-penicillin listed as allergy, she claims to get a rash She did tolerate Rocephin in the ER fine Urine culture Continue Rocephin for now 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 Vitals Vitals Vital Signs Date Time Temp Pulse Resp B/P (MAP) Pulse Ox O2 Delivery O2 Flow Rate FiO2 07/06/18 08:00 Room Air 07/06/18 08:00 85 20 118/66 (83) 100 07/06/18 07:00 98.2 98.2 Physical Exam General: Alert, Oriented X3, Cooperative, No acute distress Heart: Regular rate, Normal S1, Normal S2 Lungs: Clear Abdomen: Normal bowel sounds, Soft, No tenderness, No hepatosplenomegaly, No masses Extremities: No clubbing, No cyanosis, No edema, Normal pulses, No tenderness/ swelling Skin: No rashes, No breakdown, No significant lesion Labs LABS Laboratory Tests Test 07/05/18 13:30 07/05/18 14:30 07/05/18 19:30 07/06/18 04:30 White Blood Count 13.2 x10^3/uL (4.0-11.0) 16.9 x10^3/uL (4.0-11.0) 12.9 x10^3/uL (4.0-11.0) Red Blood Count 1.86 x10^6/uL (3.50-5.40) 3.00 x10^6/uL (3.50-5.40) 3.04 x10^6/uL (3.50-5.40) Hemoglobin 3.3 g/dL (12.0-15.5) 6.7 g/dL (12.0-15.5) 7.1 g/dL (12.0-15.5) Hematocrit 11.3 % (36.0-47.0) 22.1 % (36.0-47.0) 23.0 % (36.0-47.0) Mean Corpuscular Volume 61 fL (79-100) 74 fL (79-100) 76 fL (79-100) Mean Corpuscular Hemoglobin 18 pg (25-35) 22 pg (25-35) 23 pg (25-35) Mean Corpuscular Hemoglobin Concent 29 g/dL (31-37) 30 g/dL (31-37) 31 g/dL (31-37) Red Cell Distribution Width 18.8 % (11.5-14.5) 28.6 % (11.5-14.5) 27.8 % (11.5-14.5) Platelet Count 274 x10^3/uL (140-400) 262 x10^3/uL (140-400) 126 x10^3/uL (140-400) Neutrophils (%) (Auto) 86 % (31-73) 78 % (31-73) Lymphocytes (%) (Auto) 8 % (24-48) 14 % (24-48) Monocytes (%) (Auto) 5 % (0-9) 5 % (0-9) Eosinophils (%) (Auto) 0 % (0-3) 2 % (0-3) Basophils (%) (Auto) 1 % (0-3) 1 % (0-3) Neutrophils # (Auto) 11.4 x10^3uL (1.8-7.7) 10.0 x10^3uL (1.8-7.7) Lymphocytes # (Auto) 1.0 x10^3/uL (1.0-4.8) 1.9 x10^3/uL (1.0-4.8) Monocytes # (Auto) 0.7 x10^3/uL (0.0-1.1) 0.7 x10^3/uL (0.0-1.1) Eosinophils # (Auto) 0.0 x10^3/uL (0.0-0.7) 0.3 x10^3/uL (0.0-0.7) Basophils # (Auto) 0.1 x10^3/uL (0.0-0.2) 0.1 x10^3/uL (0.0-0.2) Segmented Neutrophils % 94 % (35-66) Lymphocytes % 3 % (24-48) Monocytes % 2 % (0-10) Basophils % 1 % (0-3) Platelet Estimate Adequate (ADEQUATE) Hypochromasia Marked Anisocytosis Slight Microcytosis Marked Ovalocytes Occ Prothrombin Time 18.2 SEC (11.7-14.0) Prothromb Time International Ratio 1.5 (0.8-1.1) Activated Partial Thromboplast Time 30 SEC (24-38) Sodium Level 133 mmol/L (136-145) Potassium Level 3.1 mmol/L (3.5-5.1) Chloride Level 100 mmol/L (98-107) Carbon Dioxide Level 22 mmol/L (21-32) Anion Gap 11 (6-14) Blood Urea Nitrogen 11 mg/dL (7-20) Creatinine 0.7 mg/dL (0.6-1.0) Estimated GFR (Cockcroft-Gault) 87.2 BUN/Creatinine Ratio 16 (6-20) Glucose Level 120 mg/dL (70-99) Calcium Level 8.4 mg/dL (8.5-10.1) Magnesium Level 2.0 mg/dL (1.8-2.4) Total Bilirubin 0.6 mg/dL (0.2-1.0) Aspartate Amino Transf (AST/SGOT) 11 U/L (15-37) Alanine Aminotransferase (ALT/SGPT) 18 U/L (14-59) Alkaline Phosphatase 62 U/L (46-116) Total Protein 7.0 g/dL (6.4-8.2) Albumin 3.3 g/dL (3.4-5.0) Albumin/Globulin Ratio 0.9 (1.0-1.7) Urine Collection Type Unknown Urine Color Yellow Urine Clarity Cloudy Urine pH 6.0 Urine Specific Grant 1.010 Urine Protein Negative mg/dL (NEG-TRACE) Urine Glucose (UA) Negative mg/dL (NEG) Urine Ketones (Stick) Negative mg/dL (NEG) Urine Blood Large (NEG) Urine Nitrite Negative (NEG) Urine Bilirubin Negative (NEG) Urine Urobilinogen Dipstick 0.2 mg/dL (0.2 mg/dL) Urine Leukocyte Esterase Large (NEG) Urine RBC 0 /HPF (0-2) Urine WBC >40 /HPF (0-4) Urine Squamous Epithelial Cells Mod /LPF Urine Bacteria Many /HPF (0-FEW) Urine Mucus Mod /LPF Urine Test Negative (NEG) Review of Systems Review of Systems -black vaginal bleeding A 14 point ROS was completed with the following noted as positive: Other systems reviewed and negative. \CONSTITUTIONAL: No fever or chills EYES: No recent changes SKIN: No rash or itching CARDIOVASCULAR: No chest pain, syncope, palpitations, or edema RESPIRATORY: No SOB or cough GASTROINTESTINAL: No nausea, vomiting or abdominal pain NEUROLOGICAL: No headaches or weakness ENDOCRINE: No cold or heat intolerance GENITOURINARY: No urgency or frequency of urination MUSCULOSKELETAL: No back pain or joint pain LYMPHATICS: No enlarged lymph nodes PSYCHIATRIC: No anxiety or depression Assessment and Plan Assessmemt and Plan Problems Medical Problems: (1) Hx of deep venous thrombosis Status: Acute (2) Menometrorrhagia Status: Acute (3) Severe anemia Status: Acute Comment Review of Relevant I have reviewed the following items anton (where applicable) has been applied. Labs Laboratory Tests Test 07/05/18 13:30 07/05/18 14:30 07/05/18 19:30 07/06/18 04:30 White Blood Count 13.2 x10^3/uL (4.0-11.0) 16.9 x10^3/uL (4.0-11.0) 12.9 x10^3/uL (4.0-11.0) Red Blood Count 1.86 x10^6/uL (3.50-5.40) 3.00 x10^6/uL (3.50-5.40) 3.04 x10^6/uL (3.50-5.40) Hemoglobin 3.3 g/dL (12.0-15.5) 6.7 g/dL (12.0-15.5) 7.1 g/dL (12.0-15.5) Hematocrit 11.3 % (36.0-47.0) 22.1 % (36.0-47.0) 23.0 % (36.0-47.0) Mean Corpuscular Volume 61 fL (79-100) 74 fL (79-100) 76 fL (79-100) Mean Corpuscular Hemoglobin 18 pg (25-35) 22 pg (25-35) 23 pg (25-35) Mean Corpuscular Hemoglobin Concent 29 g/dL (31-37) 30 g/dL (31-37) 31 g/dL (31-37) Red Cell Distribution Width 18.8 % (11.5-14.5) 28.6 % (11.5-14.5) 27.8 % (11.5-14.5) Platelet Count 274 x10^3/uL (140-400) 262 x10^3/uL (140-400) 126 x10^3/uL (140-400) Neutrophils (%) (Auto) 86 % (31-73) 78 % (31-73) Lymphocytes (%) (Auto) 8 % (24-48) 14 % (24-48) Monocytes (%) (Auto) 5 % (0-9) 5 % (0-9) Eosinophils (%) (Auto) 0 % (0-3) 2 % (0-3) Basophils (%) (Auto) 1 % (0-3) 1 % (0-3) Neutrophils # (Auto) 11.4 x10^3uL (1.8-7.7) 10.0 x10^3uL (1.8-7.7) Lymphocytes # (Auto) 1.0 x10^3/uL (1.0-4.8) 1.9 x10^3/uL (1.0-4.8) Monocytes # (Auto) 0.7 x10^3/uL (0.0-1.1) 0.7 x10^3/uL (0.0-1.1) Eosinophils # (Auto) 0.0 x10^3/uL (0.0-0.7) 0.3 x10^3/uL (0.0-0.7) Basophils # (Auto) 0.1 x10^3/uL (0.0-0.2) 0.1 x10^3/uL (0.0-0.2) Segmented Neutrophils % 94 % (35-66) Lymphocytes % 3 % (24-48) Monocytes % 2 % (0-10) Basophils % 1 % (0-3) Platelet Estimate Adequate (ADEQUATE) Hypochromasia Marked Anisocytosis Slight Microcytosis Marked Ovalocytes Occ Prothrombin Time 18.2 SEC (11.7-14.0) Prothromb Time International Ratio 1.5 (0.8-1.1) Activated Partial Thromboplast Time 30 SEC (24-38) Sodium Level 133 mmol/L (136-145) Potassium Level 3.1 mmol/L (3.5-5.1) Chloride Level 100 mmol/L (98-107) Carbon Dioxide Level 22 mmol/L (21-32) Anion Gap 11 (6-14) Blood Urea Nitrogen 11 mg/dL (7-20) Creatinine 0.7 mg/dL (0.6-1.0) Estimated GFR (Cockcroft-Gault) 87.2 BUN/Creatinine Ratio 16 (6-20) Glucose Level 120 mg/dL (70-99) Calcium Level 8.4 mg/dL (8.5-10.1) Magnesium Level 2.0 mg/dL (1.8-2.4) Total Bilirubin 0.6 mg/dL (0.2-1.0) Aspartate Amino Transf (AST/SGOT) 11 U/L (15-37) Alanine Aminotransferase (ALT/SGPT) 18 U/L (14-59) Alkaline Phosphatase 62 U/L (46-116) Total Protein 7.0 g/dL (6.4-8.2) Albumin 3.3 g/dL (3.4-5.0) Albumin/Globulin Ratio 0.9 (1.0-1.7) Urine Collection Type Unknown Urine Color Yellow Urine Clarity Cloudy Urine pH 6.0 Urine Specific Grant 1.010 Urine Protein Negative mg/dL (NEG-TRACE) Urine Glucose (UA) Negative mg/dL (NEG) Urine Ketones (Stick) Negative mg/dL (NEG) Urine Blood Large (NEG) Urine Nitrite Negative (NEG) Urine Bilirubin Negative (NEG) Urine Urobilinogen Dipstick 0.2 mg/dL (0.2 mg/dL) Urine Leukocyte Esterase Large (NEG) Urine RBC 0 /HPF (0-2) Urine WBC >40 /HPF (0-4) Urine Squamous Epithelial Cells Mod /LPF Urine Bacteria Many /HPF (0-FEW) Urine Mucus Mod /LPF Urine Test Negative (NEG) Laboratory Tests Test 07/05/18 13:30 07/05/18 14:30 07/05/18 19:30 07/06/18 04:30 White Blood Count 13.2 x10^3/uL (4.0-11.0) 16.9 x10^3/uL (4.0-11.0) 12.9 x10^3/uL (4.0-11.0) Red Blood Count 1.86 x10^6/uL (3.50-5.40) 3.00 x10^6/uL (3.50-5.40) 3.04 x10^6/uL (3.50-5.40) Hemoglobin 3.3 g/dL (12.0-15.5) 6.7 g/dL (12.0-15.5) 7.1 g/dL (12.0-15.5) Hematocrit 11.3 % (36.0-47.0) 22.1 % (36.0-47.0) 23.0 % (36.0-47.0) Mean Corpuscular Volume 61 fL (79-100) 74 fL (79-100) 76 fL (79-100) Mean Corpuscular Hemoglobin 18 pg (25-35) 22 pg (25-35) 23 pg (25-35) Mean Corpuscular Hemoglobin Concent 29 g/dL (31-37) 30 g/dL (31-37) 31 g/dL (31-37) Red Cell Distribution Width 18.8 % (11.5-14.5) 28.6 % (11.5-14.5) 27.8 % (11.5-14.5) Platelet Count 274 x10^3/uL (140-400) 262 x10^3/uL (140-400) 126 x10^3/uL (140-400) Neutrophils (%) (Auto) 86 % (31-73) 78 % (31-73) Lymphocytes (%) (Auto) 8 % (24-48) 14 % (24-48) Monocytes (%) (Auto) 5 % (0-9) 5 % (0-9) Eosinophils (%) (Auto) 0 % (0-3) 2 % (0-3) Basophils (%) (Auto) 1 % (0-3) 1 % (0-3) Neutrophils # (Auto) 11.4 x10^3uL (1.8-7.7) 10.0 x10^3uL (1.8-7.7) Lymphocytes # (Auto) 1.0 x10^3/uL (1.0-4.8) 1.9 x10^3/uL (1.0-4.8) Monocytes # (Auto) 0.7 x10^3/uL (0.0-1.1) 0.7 x10^3/uL (0.0-1.1) Eosinophils # (Auto) 0.0 x10^3/uL (0.0-0.7) 0.3 x10^3/uL (0.0-0.7) Basophils # (Auto) 0.1 x10^3/uL (0.0-0.2) 0.1 x10^3/uL (0.0-0.2) Segmented Neutrophils % 94 % (35-66) Lymphocytes % 3 % (24-48) Monocytes % 2 % (0-10) Basophils % 1 % (0-3) Platelet Estimate Adequate (ADEQUATE) Hypochromasia Marked Anisocytosis Slight Microcytosis Marked Ovalocytes Occ Prothrombin Time 18.2 SEC (11.7-14.0) Prothromb Time International Ratio 1.5 (0.8-1.1) Activated Partial Thromboplast Time 30 SEC (24-38) Sodium Level 133 mmol/L (136-145) Potassium Level 3.1 mmol/L (3.5-5.1) Chloride Level 100 mmol/L (98-107) Carbon Dioxide Level 22 mmol/L (21-32) Anion Gap 11 (6-14) Blood Urea Nitrogen 11 mg/dL (7-20) Creatinine 0.7 mg/dL (0.6-1.0) Estimated GFR (Cockcroft-Gault) 87.2 BUN/Creatinine Ratio 16 (6-20) Glucose Level 120 mg/dL (70-99) Calcium Level 8.4 mg/dL (8.5-10.1) Magnesium Level 2.0 mg/dL (1.8-2.4) Total Bilirubin 0.6 mg/dL (0.2-1.0) Aspartate Amino Transf (AST/SGOT) 11 U/L (15-37) Alanine Aminotransferase (ALT/SGPT) 18 U/L (14-59) Alkaline Phosphatase 62 U/L (46-116) Total Protein 7.0 g/dL (6.4-8.2) Albumin 3.3 g/dL (3.4-5.0) Albumin/Globulin Ratio 0.9 (1.0-1.7) Urine Collection Type Unknown Urine Color Yellow Urine Clarity Cloudy Urine pH 6.0 Urine Specific Grant 1.010 Urine Protein Negative mg/dL (NEG-TRACE) Urine Glucose (UA) Negative mg/dL (NEG) Urine Ketones (Stick) Negative mg/dL (NEG) Urine Blood Large (NEG) Urine Nitrite Negative (NEG) Urine Bilirubin Negative (NEG) Urine Urobilinogen Dipstick 0.2 mg/dL (0.2 mg/dL) Urine Leukocyte Esterase Large (NEG) Urine RBC 0 /HPF (0-2) Urine WBC >40 /HPF (0-4) Urine Squamous Epithelial Cells Mod /LPF Urine Bacteria Many /HPF (0-FEW) Urine Mucus Mod /LPF Urine Test Negative (NEG) Medications Current Medications Sodium Chloride 1,000 ml @ 1,000 mls/hr 1X ONCE IV Last administered on at 13:47; Start 07/05/18 at 13:30; Stop 07/05/18 at 14:29; Status DC Medroxyprogesterone Acetate (Provera) 10 mg STAT PO ; Start 07/05/18 at 14:15; Stop 07/05/18 at 14:43; Status DC Acetaminophen (Tylenol) 500 mg PRN Q6HRS PRN PO MILD PAIN / TEMP Last administered on 07/05/18at 21:14; Start 07/05/18 at 14:45 Acetaminophen/ Codeine Phosphate (Tylenol #3) 1 tab PRN Q6HRS PRN PO MODERATE PAIN; Start 07/05/18 at 14:45 Diphenhydramine HCl (Benadryl) 25 mg PRN QHS PRN PO INSOMNIA Last administered on 07/05/18at 21:14; Start 07/05/18 at 14:45 Ondansetron HCl (Zofran) 4 mg PRN Q6HRS PRN IV NAUSEA/VOMITING Last administered on 07/05/18at 16:29; Start 07/05/18 at 14:45 Ondansetron HCl (Zofran Odt) 4 mg PRN Q6HRS PRN PO NAUSEA/VOMITING; Start at 14:45 Iohexol (Omnipaque 350 Mg/ml) 90 ml 1X ONCE IV ; Start 07/05/18 at 14:45; Stop 07/05/18 at 14:46; Status UNV Medroxyprogesterone Acetate (Provera) 10 mg 1X ONCE PO Last administered on 07/05/18at 14:45; Start 07/05/18 at 14:45; Stop 07/05/18 at 14:46; Status DC Ondansetron HCl (Zofran) 4 mg PRN Q8HRS PRN IV NAUSEA/VOMITING; Start 07/05/18 at 14:45; Stop 07/06/18 at 14:44 Iohexol (Omnipaque 350 Mg/ml) 100 ml STK-MED ONCE .ROUTE ; Start 07/05/18 at 14: 43; Stop 07/05/18 at 14:45; Status DC Iohexol (Omnipaque 350 Mg/ml) 90 ml 1X ONCE IV Last administered on 07/05/18at 15:24; Start 07/05/18 at 15:30; Stop 07/05/18 at 15:31; Status DC Info (CONTRAST GIVEN -- Rx MONITORING) 1 each PRN DAILY PRN MC SEE COMMENTS; Start 07/05/18 at 15:30; Stop 07/07/18 at 15:29 Potassium Chloride (Klor-Con) 40 meq 1X ONCE PO ; Start 07/05/18 at 15:45; Stop 07/05/18 at 15:46; Status DC Potassium Chloride (Klor-Con) 20 meq 1X ONCE PO Last administered on 07/05/18at 20:10; Start 07/05/18 at 19:00; Stop 07/05/18 at 19:01; Status DC Ceftriaxone Sodium (Rocephin) 1 gm 1X ONCE IVP Last administered on 07/05/18at 16:30; Start 07/05/18 at 16:15; Stop 07/05/18 at 16:16; Status DC Vitals/I & O Vital Sign - Last 24 Hours 07/05/18 07/05/18 07/05/18 07/05/18 13:15 13:30 14:00 14:30 Temp 97.7 97.7 Pulse 113 114 107 107 Resp 24 21 21 21 B/P (MAP) 124/60 (81) 124/60 (81) 118/58 (78) 116/56 (76) Pulse Ox 100 100 100 100 O2 Delivery Room Air Room Air Room Air Room Air 07/05/18 07/05/18 07/05/18 07/05/18 15:00 15:45 16:00 16:00 Temp 98.0 98.0 Pulse 110 102 104 Resp 20 20 B/P (MAP) 116/55 (75) 99/55 (70) 107/61 (76) Pulse Ox 100 98 98 O2 Delivery Room Air Room Air Room Air Room Air 07/05/18 07/05/18 07/05/18 07/05/18 16:15 16:21 16:30 16:45 Temp 97.3 97.3 Pulse 106 103 108 108 Resp 20 16 20 20 B/P (MAP) 110/60 (77) 99/55 105/59 (74) 109/55 (73) Pulse Ox 98 98 98 O2 Delivery Room Air Room Air Room Air 07/05/18 07/05/18 07/05/18 07/05/18 17:56 18:00 19:00 20:00 Temp 98.2 98.2 99.8 99.5 98.2 98.2 99.8 99.5 Pulse 98 98 102 104 Resp 20 20 18 B/P (MAP) 115/66 115/55 (75) 119/75 (90) 122/73 (89) Pulse Ox 100 100 100 O2 Delivery Room Air Room Air Room Air 07/05/18 07/05/18 07/05/18 07/05/18 20:00 21:00 21:37 22:04 Temp 100.2 100.2 99.4 100.2 100.2 99.4 Pulse 102 105 99 Resp 20 18 B/P (MAP) 110/60 (77) 110/60 105/59 Pulse Ox 100 O2 Delivery Room Air Room Air 07/05/18 07/05/18 07/05/18 07/06/18 22:04 22:50 22:51 00:00 Temp 99.4 98.7 98.7 98.5 99.4 98.7 98.7 98.5 Pulse 99 112 95 84 Resp 18 20 20 20 B/P (MAP) 105/59 (74) 104/61 104/61 (75) 102/61 (75) Pulse Ox 100 99 97 O2 Delivery Room Air Room Air Room Air 07/06/18 07/06/18 07/06/18 07/06/18 00:07 01:00 02:00 03:00 Pulse 84 78 74 Resp 20 20 20 B/P (MAP) 94/58 (70) 102/61 (75) 85/50 (62) Pulse Ox 97 98 98 O2 Delivery Room Air Room Air Room Air Room Air 07/06/18 07/06/18 07/06/18 07/06/18 04:00 04:15 05:00 06:00 Temp 98.3 98.3 Pulse 76 78 77 Resp 20 20 20 B/P (MAP) 95/52 (66) 105/56 (72) 119/54 (75) Pulse Ox 98 99 100 O2 Delivery Room Air Room Air Room Air Room Air 07/06/18 07/06/18 07/06/18 07/06/18 07:00 07:30 08:00 08:00 Temp 98.2 98.2 Pulse 80 82 85 Resp 20 20 20 B/P (MAP) 100/60 (73) 110/66 (81) 118/66 (83) Pulse Ox 100 100 100 O2 Delivery Room Air Room Air Room Air Room Air Intake and Output 07/05/18 07/05/18 07/06/18 15:01 23:01 07:01 Intake Total 1139 ml Balance 1139 ml DANIELLE EDWARDS MD Jul 06, 2018 09:03
[2018-07-06 10:30] LABS: CALCIUM 8.1 mg/dL (8.5-10.1); CREATININE 0.7 mg/dL (0.6-1.0); GFR 87.2; POTASSIUM 3.4 mmol/L (3.5-5.1)
[2018-07-06] MEDS: cefTRIAXone IV Push 1 GM VIAL. IVP SCH (16:57)
[2018-07-06] MEDS: metroNIDAZOLE 500 MG TABLET PO SCH (20:56)
--- NOTE | 2018-07-06 21:29 | PDOC4 ---
PROCEDURE Procedure Dx AUB Leiomyomata Procedure EMB EMB performed without difficulty in the usual manner FU results JOHANNA SOLARES MD Jul 06, 2018 21:29
--- NOTE | 2018-07-06 21:49 | CONS ---
DATE OF CONSULTATION: CONSULTING SERVICE: Internal Medicine and Dr. Koo. CONSULTING PHYSICIAN: Armando Soler MD, [place] [facility]. REASON FOR CONSULT: Severe anemia, uterine leiomyomata. HISTORY OF PRESENT ILLNESS: The patient's chart was reviewed. 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 The patient is a 53-year-old white female who presented to the Emergency Room with shortness of breath, vaginal bleeding that began in April. She also has had late last year in April a DVT on the left side that was treated with Xarelto, which she is currently on. There was concern for the patient having a CVA and shortness of breath and what appeared to be possible lethargy and neurological symptoms, was worked up for neurological deficit. The patient also was noted to have several large pelvic masses consistent with leiomyomata. Chart was reviewed. The patient was taken to the procedure room. Endometrial biopsy was done, which the patient tolerated well. Cervix was opened to the aspirator and samples were taken. The patient's family was informed of the significance of the fibroid and the need to rule out any other type of malignancy, understood and agreed. The family and the patient were informed that during this hospital stay we would not be getting her endometrial biopsy back in a reasonable time and that she is currently stable and we will be able to discharge her to home with a followup SU and BSO at a later date. Also, the patient had risks, benefits, indications, alternatives discussed in detail. This included injury to bowel, bladder, ureters, other pelvic and abdominal contents. The patient's family was also informed about the need of a urologist with stents in during the procedure and this might necessitate a preop consult by the urologist, but more likely can be done at the time of admission for the surgery. IMPRESSION: As above. Once the patient is stable, coordination with Urology for stents can be done. The patient will undergo a total abdominal hysterectomy with bilateral salpingo-oophorectomy as long as the endometrial biopsy is negative for any type of uterine malignancy. ARMANDO SOLER MD DR: SANDRA/smiley JOB#: [id number] / [id number]
[2018-07-07 06:46] VITALS: BP 105/70
[2018-07-07 07:23] LABS: BASO # 0.1 x10^3/uL (0.0-0.2); BASO % 1 % (0-3); EOS # 0.3 x10^3/uL (0.0-0.7); EOS % 3 % (0-3); HEMATOCRIT 27.2 % (36.0-47.0); HEMOGLOBIN 8.8 g/dL (12.0-15.5); LYMPH # 1.5 x10^3/uL (1.0-4.8); LYMPH % 14 % (24-48); MEAN CORPUSCULAR HEMOGLOBIN 25 pg (25-35); MEAN CORPUSCULAR HGB CONC 32 g/dL (31-37); MEAN CORPUSCULAR VOLUME 77 fL (79-100); MONO # 0.7 x10^3/uL (0.0-1.1); MONO % 6 % (0-9); NEUT # 8.4 x10^3uL (1.8-7.7); NEUT % 77 % (31-73); PLATELET COUNT 203 x10^3/uL (140-400); RED BLOOD COUNT 3.55 x10^6/uL (3.50-5.40)
[2018-07-07] MEDS ORDERED: MEDR10TA PO (08:06)
[2018-07-07] MEDS ORDERED: FERR325T14 PO (08:06)
[2018-07-07] MEDS: metroNIDAZOLE 500 MG TABLET PO SCH (08:29)
--- NOTE | 2018-07-07 09:08 | PDOC3 ---
Discharge Summary Visit Information Date of Admission: Jul 05, 2018 Date of Discharge: Jul 07, 2018 Admitting Diagnosis Comment: large fibroid uterus Precipitous drop in hemoglobin-hgb 3.3 on admission Uterine bleeding/menorrhagia -catarino menopausal Reactive leukocytosis in the background of severe anemia Recent unprovoked DVT extensive left leg-started on Xarelto April or May 2018 Final Diagnosis Problems Medical Problems: (1) Hx of deep venous thrombosis Status: Acute (2) Menometrorrhagia Status: Acute (3) Severe anemia Status: Acute Brief Hospital Course Allergies Allergies Coded Allergies Type Severity Reaction Last Updated Verified Penicillins Allergy Intermediate 07/06/18 Yes Vital Signs Vital Signs Date Time Temp Pulse Resp B/P (MAP) Pulse Ox O2 Delivery O2 Flow Rate FiO2 07/07/18 06:46 98.3 73 105/70 (82) 96 98.3 07/06/18 23:03 Room Air 07/06/18 18:47 18 99.0 Lab Results Laboratory Tests Test 07/05/18 13:30 07/05/18 14:30 07/05/18 19:30 07/06/18 04:30 White Blood Count 13.2 x10^3/uL (4.0-11.0) 16.9 x10^3/uL (4.0-11.0) 12.9 x10^3/uL (4.0-11.0) Red Blood Count 1.86 x10^6/uL (3.50-5.40) 3.00 x10^6/uL (3.50-5.40) 3.04 x10^6/uL (3.50-5.40) Hemoglobin 3.3 g/dL (12.0-15.5) 6.7 g/dL (12.0-15.5) 7.1 g/dL (12.0-15.5) Hematocrit 11.3 % (36.0-47.0) 22.1 % (36.0-47.0) 23.0 % (36.0-47.0) Mean Corpuscular Volume 61 fL (79-100) 74 fL (79-100) 76 fL (79-100) Mean Corpuscular Hemoglobin 18 pg (25-35) 22 pg (25-35) 23 pg (25-35) Mean Corpuscular Hemoglobin Concent 29 g/dL (31-37) 30 g/dL (31-37) 31 g/dL (31-37) Red Cell Distribution Width 18.8 % (11.5-14.5) 28.6 % (11.5-14.5) 27.8 % (11.5-14.5) Platelet Count 274 x10^3/uL (140-400) 262 x10^3/uL (140-400) 126 x10^3/uL (140-400) Neutrophils (%) (Auto) 86 % (31-73) 78 % (31-73) Lymphocytes (%) (Auto) 8 % (24-48) 14 % (24-48) Monocytes (%) (Auto) 5 % (0-9) 5 % (0-9) Eosinophils (%) (Auto) 0 % (0-3) 2 % (0-3) Basophils (%) (Auto) 1 % (0-3) 1 % (0-3) Neutrophils # (Auto) 11.4 x10^3uL (1.8-7.7) 10.0 x10^3uL (1.8-7.7) Lymphocytes # (Auto) 1.0 x10^3/uL (1.0-4.8) 1.9 x10^3/uL (1.0-4.8) Monocytes # (Auto) 0.7 x10^3/uL (0.0-1.1) 0.7 x10^3/uL (0.0-1.1) Eosinophils # (Auto) 0.0 x10^3/uL (0.0-0.7) 0.3 x10^3/uL (0.0-0.7) Basophils # (Auto) 0.1 x10^3/uL (0.0-0.2) 0.1 x10^3/uL (0.0-0.2) Segmented Neutrophils % 94 % (35-66) Lymphocytes % 3 % (24-48) Monocytes % 2 % (0-10) Basophils % 1 % (0-3) Platelet Estimate Adequate (ADEQUATE) Hypochromasia Marked Anisocytosis Slight Microcytosis Marked Ovalocytes Occ Prothrombin Time 18.2 SEC (11.7-14.0) Prothromb Time International Ratio 1.5 (0.8-1.1) Activated Partial Thromboplast Time 30 SEC (24-38) Sodium Level 133 mmol/L (136-145) Potassium Level 3.1 mmol/L (3.5-5.1) Chloride Level 100 mmol/L (98-107) Carbon Dioxide Level 22 mmol/L (21-32) Anion Gap 11 (6-14) Blood Urea Nitrogen 11 mg/dL (7-20) Creatinine 0.7 mg/dL (0.6-1.0) Estimated GFR (Cockcroft-Gault) 87.2 BUN/Creatinine Ratio 16 (6-20) Glucose Level 120 mg/dL (70-99) Calcium Level 8.4 mg/dL (8.5-10.1) Magnesium Level 2.0 mg/dL (1.8-2.4) Total Bilirubin 0.6 mg/dL (0.2-1.0) Aspartate Amino Transf (AST/SGOT) 11 U/L (15-37) Alanine Aminotransferase (ALT/SGPT) 18 U/L (14-59) Alkaline Phosphatase 62 U/L (46-116) Total Protein 7.0 g/dL (6.4-8.2) Albumin 3.3 g/dL (3.4-5.0) Albumin/Globulin Ratio 0.9 (1.0-1.7) Urine Collection Type Unknown Urine Color Yellow Urine Clarity Cloudy Urine pH 6.0 Urine Specific Lester 1.010 Urine Protein Negative mg/dL (NEG-TRACE) Urine Glucose (UA) Negative mg/dL (NEG) Urine Ketones (Stick) Negative mg/dL (NEG) Urine Blood Large (NEG) Urine Nitrite Negative (NEG) Urine Bilirubin Negative (NEG) Urine Urobilinogen Dipstick 0.2 mg/dL (0.2 mg/dL) Urine Leukocyte Esterase Large (NEG) Urine RBC 0 /HPF (0-2) Urine WBC >40 /HPF (0-4) Urine Squamous Epithelial Cells Mod /LPF Urine Bacteria Many /HPF (0-FEW) Urine Mucus Mod /LPF Urine Test Negative (NEG) Test 07/06/18 09:45 07/07/18 06:50 Hemoglobin 8.8 g/dL (12.0-15.5) 8.8 g/dL (12.0-15.5) Sodium Level 143 mmol/L (136-145) Potassium Level 3.4 mmol/L (3.5-5.1) Chloride Level 108 mmol/L (98-107) Carbon Dioxide Level 22 mmol/L (21-32) Anion Gap 13 (6-14) Blood Urea Nitrogen 9 mg/dL (7-20) Creatinine 0.7 mg/dL (0.6-1.0) Estimated GFR (Cockcroft-Gault) 87.2 Glucose Level 90 mg/dL (70-99) Calcium Level 8.1 mg/dL (8.5-10.1) White Blood Count 11.0 x10^3/uL (4.0-11.0) Red Blood Count 3.55 x10^6/uL (3.50-5.40) Hematocrit 27.2 % (36.0-47.0) Mean Corpuscular Volume 77 fL (79-100) Mean Corpuscular Hemoglobin 25 pg (25-35) Mean Corpuscular Hemoglobin Concent 32 g/dL (31-37) Red Cell Distribution Width 27.0 % (11.5-14.5) Platelet Count 203 x10^3/uL (140-400) Neutrophils (%) (Auto) 77 % (31-73) Lymphocytes (%) (Auto) 14 % (24-48) Monocytes (%) (Auto) 6 % (0-9) Eosinophils (%) (Auto) 3 % (0-3) Basophils (%) (Auto) 1 % (0-3) Neutrophils # (Auto) 8.4 x10^3uL (1.8-7.7) Lymphocytes # (Auto) 1.5 x10^3/uL (1.0-4.8) Monocytes # (Auto) 0.7 x10^3/uL (0.0-1.1) Eosinophils # (Auto) 0.3 x10^3/uL (0.0-0.7) Basophils # (Auto) 0.1 x10^3/uL (0.0-0.2) Laboratory Tests Test 07/06/18 09:45 07/07/18 06:50 Hemoglobin 8.8 g/dL (12.0-15.5) 8.8 g/dL (12.0-15.5) Sodium Level 143 mmol/L (136-145) Potassium Level 3.4 mmol/L (3.5-5.1) Chloride Level 108 mmol/L (98-107) Carbon Dioxide Level 22 mmol/L (21-32) Anion Gap 13 (6-14) Blood Urea Nitrogen 9 mg/dL (7-20) Creatinine 0.7 mg/dL (0.6-1.0) Estimated GFR (Cockcroft-Gault) 87.2 Glucose Level 90 mg/dL (70-99) Calcium Level 8.1 mg/dL (8.5-10.1) White Blood Count 11.0 x10^3/uL (4.0-11.0) Red Blood Count 3.55 x10^6/uL (3.50-5.40) Hematocrit 27.2 % (36.0-47.0) Mean Corpuscular Volume 77 fL (79-100) Mean Corpuscular Hemoglobin 25 pg (25-35) Mean Corpuscular Hemoglobin Concent 32 g/dL (31-37) Red Cell Distribution Width 27.0 % (11.5-14.5) Platelet Count 203 x10^3/uL (140-400) Neutrophils (%) (Auto) 77 % (31-73) Lymphocytes (%) (Auto) 14 % (24-48) Monocytes (%) (Auto) 6 % (0-9) Eosinophils (%) (Auto) 3 % (0-3) Basophils (%) (Auto) 1 % (0-3) Neutrophils # (Auto) 8.4 x10^3uL (1.8-7.7) Lymphocytes # (Auto) 1.5 x10^3/uL (1.0-4.8) Monocytes # (Auto) 0.7 x10^3/uL (0.0-1.1) Eosinophils # (Auto) 0.3 x10^3/uL (0.0-0.7) Basophils # (Auto) 0.1 x10^3/uL (0.0-0.2) Brief Hospital Course Ms. Contreras is a 53 old white female with some mental delay after she had a very complicated OB delivery some years back ( now full grown son), needed trach PEG at that time. In any case she comes in because of hemoglobin of 3.3 with SOA as her strong symptom. She was transfused and hemoglobin 8.8 on discharge. She has menorrhagia. ASSISTANT COOK was consulted to the pelvic exam and she had a large fibroid uterus as evidence also on ultrasound and CT of the abdomen and pelvis and she had retained tampon on internal exam. She also had a UTI. We were giving Rocephin-penicillin allergy (rash) but she is tolerating Rocephin fine. ASSISTANT COOK has started Flagyl bec of the retained foul smelling huge tampon discovered, Now stable, I did order Provera and that seems to have slowed down the bleeding. ASSISTANT COOK has recommended TAHBSO along with urology intra op as there are some signs of compression of the ureter because of the large fibroid uterus. This will all be done next admission when they set up a time for SU/BSO. Endometrial biopsy was done while internal exam and results will be out maybe weeks. Patient seen and examined, discussed with with RN. Kelley Duran all on chart. We are waiting for BONDING MOLDER rounds before patient discharges today Discharge Information Condition at Discharge: Improved, Stable Follow Up: Weeks (dr Soler as instructed) Disposition/Orders: D/C to Home Scheduled Ferrous Sulfate (Ferrous Sulfate) 325 Mg Tablet, 1 TAB PO DAILY for savanna, #30 Ref 3 Prescribed by: DANIELLE EDWARDS on 07/07/18 08 Medroxyprogesterone Acetate (Provera) 10 Mg Tablet, 10 MG PO BID for menorrhagia , #30 Prescribed by: DANIELLE EDWARDS on 07/07/18 08 DANIELLE EDWARDS MD Jul 07, 2018 09:08
[2018-07-07] MEDS: cefTRIAXone IV Push 1 GM VIAL. IVP SCH (14:47)
[2018-07-07 15:00] VITALS: BP 117/70
--- NOTE | 2018-07-07 16:08 | NUR ---
Discharge Discharge instructions given to patient and guardian at this time, no questions or concerns noted. To follow up with DR Soler on Sunday. Patient ambulated off unit with all belongings.
[2018-07-07] MEDS ORDERED: LACTOBACILLUS RHAMNOSUS GG 1 CAPSULE. PO SCH (21:00)
--- NOTE | 2018-07-09 16:09 | PATHOLOGY ---
[facility] Accession Number: [id number] . 01 Material submitted: . BIOPSY OF UTERINE TISSUE . 01 Clinical history: . Vaginal bleeding . 02 Diagnosis: Uterine biopsy: - Disordered proliferative endometrium. 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 02 Comment: There is no evidence of hyperplasia or malignancy. (JPM:avinash; 07/09/2018) . 02 Electronically signed: . Steven Gonzalez MD, Pathologist NPI- [id number] . 01 Gross description: . The specimen is received in formalin, labeled "Chelsea Contreras, biopsy of uterine tissue", are multiple irregular fragments of dark brown hemorrhagic tissue is measuring 2.5 x 2.5 x 0.8 cm in aggregate. The specimen is entirely submitted in A1-A2. ([facility]; 07/08/2018) SHS/SHS . 02 Pathologist provided ICD-10: N85.9, N93.9 . 02 CPT . 832386 Specimen Comment: A courtesy copy of this report has been sent to Specimen Comment: [phone], . Specimen Comment: Report sent to / DR SMITH Performed at: 01 [facility] [address], [place] [id number] MD Jose Silveira MD Phone: [phone] Performed at: 02 [facility] [address] [place], [place] [id number] MD Steven Gonzalez MD Phone: [phone]
[2018-07-23] MEDS ORDERED: ENOX80DI SQ (13:12)
== END 2018-07-07 16:11 | disposition home or self-care (01) | DRG 744 ==
LOC: ER 13:10 → 1 WEST ICU 14:35 → 3 NORTH 07-06 11:54
PROVIDERS: ADMIT Internal Medicine; ATTEND Internal Medicine
PROC: 30233N1 Transfusion of Nonautologous Red Blood Cells into Peripheral Vein, Percutaneous Approach (ICD-10-PCS; principal; 2018-07-06)
PROC: 0UDB7ZX Extraction of Endometrium, Via Natural or Artificial Opening, Diagnostic (ICD-10-PCS; 2018-07-06)
DX: D25.9 Leiomyoma of uterus, unspecified (principal); N39.0 Urinary tract infection, site not specified; R71.0 Precipitous drop in hematocrit; T19.2XXA Foreign body in vulva and vagina, initial encounter; D72.828 Other elevated white blood cell count; L27.0 Generalized skin eruption due to drugs and medicaments taken internally; N92.0 Excessive and frequent menstruation with regular cycle; N92.1 Excessive and frequent menstruation with irregular cycle; N92.4 Excessive bleeding in the premenopausal period; N94.6 Dysmenorrhea, unspecified; N13.5 Crossing vessel and stricture of ureter without hydronephrosis; Z86.718 Personal history of other venous thrombosis and embolism; Z86.73 Personal history of transient ischemic attack (TIA), and cerebral infarction without residual deficits; Z90.710 Acquired absence of both cervix and uterus; Z79.01 Long term (current) use of anticoagulants; Z88.0 Allergy status to penicillin; Z79.899 Other long term (current) drug therapy; Y92.89 Other specified places as the place of occurrence of the external cause
CPT/HCPCS: 36415; 71275; 74177; 80048; 80053; 81001; 81025; 83735; 85007; 85018; 85025; 85027; 85610; 85730; 86850; 86900; 86901; 86920; 87086; 87641; 88305; 93005; 96360; J0696; J2405; J7030; P9016; Q0163; Q9967; 99285-25; G0378

== ENCOUNTER 2018-07-30 11:53 | Inpatient (IN) | payer MEDICARE ==
[~2018-07-30] VITALS: Ht 149.9 cm; Wt 66.8 kg
[~2018-07-30 11:53] MED LIST: ENOX80DI SQ; FERR325T14 PO; GLYCOPYRROLATE 1 MG/5 ML VIAL. IV ONE; IV RINGERS,LACTATED 1000ML 1,000 ML IV SCH; LIDOCAINE 1% PF 2 ML VIAL. ID PRN; MEDR10TA PO; ONDANSETRON PF 4 MG/2 ML VIAL. IV PRN; fentaNYL PF VIAL 100 MCG/2 ML VIAL IV PRN
[2018-07-30] MEDS ORDERED: CLINDAMYCIN 900MG PREMIX 50 ML IV ONE (13:00)
[2018-07-30] MEDS ORDERED: ONDANSETRON PF 4 MG/2 ML VIAL. ONE (13:03)
[2018-07-30] MEDS ORDERED: ROCURONIUM 50 MG/5 ML VIAL. ONE (13:03)
[2018-07-30] MEDS ORDERED: PROPOFOL 20 ML IV ONE (13:03)
[2018-07-30] MEDS ORDERED: LIDOCAINE 2% PF 5 ML VIAL. ONE (13:03)
[2018-07-30] MEDS ORDERED: DEXAMETHASONE SOD PHOS 20 MG/5 ML VIAL. ONE (13:03)
[2018-07-30] MEDS ORDERED: fentaNYL PF VIAL 100 MCG/2 ML VIAL ONE ×2 (13:03→15:25)
[2018-07-30 13:13] LABS: BASO # 0.1 x10^3/uL (0.0-0.2); BASO % 2 % (0-3); CALCIUM 9.3 mg/dL (8.5-10.1); CREATININE 0.6 mg/dL (0.6-1.0); EOS # 0.1 x10^3/uL (0.0-0.7); EOS % 1 % (0-3); GFR 104.2; HEMATOCRIT 33.9 % (36.0-47.0); HEMOGLOBIN 10.8 g/dL (12.0-15.5); LYMPH # 1.2 x10^3/uL (1.0-4.8); LYMPH % 12 % (24-48); MEAN CORPUSCULAR HEMOGLOBIN 26 pg (25-35); MEAN CORPUSCULAR HGB CONC 32 g/dL (31-37); MEAN CORPUSCULAR VOLUME 81 fL (79-100); MONO # 0.6 x10^3/uL (0.0-1.1); MONO % 7 % (0-9); NEUT # 7.6 x10^3uL (1.8-7.7); NEUT % 78 % (31-73); PLATELET COUNT 447 x10^3/uL (140-400); POTASSIUM 3.6 mmol/L (3.5-5.1); RED BLOOD COUNT 4.17 x10^6/uL (3.50-5.40); RED CELL DISTRIBUTION WIDTH 27.7 % (11.5-14.5); WHITE BLOOD COUNT 9.7 x10^3/uL (4.0-11.0)
[2018-07-30 13:19] LABS: ALBUMIN 3.4 g/dL (3.4-5.0); ALBUMIN/GLOBULIN RATIO 0.8 (1.0-1.7); TOTAL BILIRUBIN 0.4 mg/dL (0.2-1.0); TOTAL PROTEIN 7.9 g/dL (6.4-8.2)
--- NOTE | 2018-07-30 13:29 | PDOC1 ---
History and Physical Date of Admission Date of Admission DATE: 07/30/18 TIME: 13:22 Identification/Chief Complaint Chief Complaint Large leiomyomata PMB Source Source: Patient History of Present Illness History of Present Illness AUB and pelvic pressure greater than one year requiring hospitalization and Blood transfusion Past Medical History Cardiovascular: No pertinent hx, Syncope Pulmonary: No pertinent hx GI: No pertinent hx Heme/Onc: Iron deficiency Anemia, Other Hepatobiliary: No pertinent hx Psych: Other Rheumatologic: No pertinent hx Infectious disease: No pertinent hx Renal/: No pertinent hx Endocrine: No pertinent hx Past Surgical History Past Surgical History: Family History Family History: Family History Unknown, Adopted Social History ALCOHOL: none Drugs: None Current Problem List Problem List Anemia LLE dvt Current Medications Current Medications Current Medications Prochlorperazine Edisylate (Compazine) 5 mg PACU PRN PRN IV NAUSEA, MRX1; Start 07/30/18 at 07:00; Stop 07/31/18 at 06:59 Hydromorphone HCl (Dilaudid) 0.5 mg PRN Q10MIN PRN IV SEV PAIN, Second choice; Start 07/30/18 at 07:00; Stop 07/31/18 at 06:59 Lidocaine HCl (Xylocaine-Mpf 1% 2ml Vial) 2 ml PRN 1X PRN ID IV START; Start at 07:00; Stop 07/31/18 at 06:59 Ringer's Solution 1,000 ml @ 30 mls/hr Q24H IV Last administered on 07/30/18at 13:02; Start 07/30/18 at 07:00; Stop 07/30/18 at 18:59 Morphine Sulfate (Morphine Sulfate) 1 mg PRN Q10MIN PRN IV SEVERE PAIN; Start 07/30/18 at 07:00; Stop 07/31/18 at 06:59 Fentanyl Citrate (Fentanyl 2ml Vial) 50 mcg PRN Q5MIN PRN IV MODERATE TO SEVERE PAIN; Start 07/30/18 at 07:00; Stop 07/31/18 at 06:59 Fentanyl Citrate (Fentanyl 2ml Vial) 25 mcg PRN Q5MIN PRN IV MILD PAIN; Start 07/30/18 at 07:00; Stop 07/31/18 at 06:59 Ondansetron HCl (Zofran) 4 mg PRN Q6HRS PRN IV NAUSEA/VOMITING; Start 07/30/18 at 07:00; Stop 07/31/18 at 06:59 Glycopyrrolate (Robinul) 1 mg 1X ONCE IV ; Start 07/30/18 at 08:30; Stop at 08:31; Status DC Cefazolin Sodium 50 ml @ 100 mls/hr 1X PREOP PRN IV SEE COMMENTS; Start at 06:00; Stop 07/31/18 at 18:00; Status UNV Clindamycin Phosphate 50 ml @ 100 mls/hr 1X ONCE IV ; Start 07/30/18 at 13:00 ; Stop 07/30/18 at 13:29 Propofol 20 ml @ As Directed STK-MED ONCE IV ; Start 07/30/18 at 13:03; Stop at 13:04; Status DC Dexamethasone Sodium Phosphate (Decadron) 20 mg STK-MED ONCE .ROUTE ; Start at 13:03; Stop 07/30/18 at 13:04; Status DC Lidocaine HCl (Lidocaine Pf 2% Vial) 5 ml STK-MED ONCE .ROUTE ; Start 07/30/18 at 13:03; Stop 07/30/18 at 13:04; Status DC Ondansetron HCl (Zofran) 4 mg STK-MED ONCE .ROUTE ; Start 07/30/18 at 13:03; Stop 07/30/18 at 13:04; Status DC Rocuronium [place] (Zemuron) 50 mg STK-MED ONCE .ROUTE ; Start 07/30/18 at 13:03 ; Stop 07/30/18 at 13:04; Status DC Fentanyl Citrate (Fentanyl 2ml Vial) 100 mcg STK-MED ONCE .ROUTE ; Start at 13:03; Stop 07/30/18 at 13:04; Status DC Active Scripts Active Ferrous Sulfate 325 Mg Tablet 1 Tab PO DAILY Allergies Allergies: Coded Allergies: Penicillins (Verified Allergy, Intermediate, Rash, 07/30/18) ROS Hematological and Lymphatic: YES: Bleeding Problems, Blood Clots Physical Exam General: Alert, Oriented X3, Cooperative, No acute distress HEENT: PERRLA Lungs: Clear to auscultation, Normal air movement Breasts: Normal, Rt breast nml w/o mass, Lt breast nml w/o mass, Nipples normal Abdomen: Other (2o plus size fibroid) PELVIC: Nml ext genitalia, Nml ext vulva, Nml ext vagina, Nml ext cervic, Other (fibroids) Extremities: Other (L greater than right edema) Skin: No rashes, No breakdown, No significant lesion Neuro: Other (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 ) Vitals Vitals Vital Signs Date Time Temp Pulse Resp B/P (MAP) Pulse Ox O2 Delivery O2 Flow Rate FiO2 07/30/18 12:32 98.6 101 20 147/85 100 Room Air 98.6 Labs Labs Laboratory Tests Test 07/30/18 12:40 White Blood Count 9.7 x10^3/uL (4.0-11.0) Red Blood Count 4.17 x10^6/uL (3.50-5.40) Hemoglobin 10.8 g/dL (12.0-15.5) Hematocrit 33.9 % (36.0-47.0) Mean Corpuscular Volume 81 fL (79-100) Mean Corpuscular Hemoglobin 26 pg (25-35) Mean Corpuscular Hemoglobin Concent 32 g/dL (31-37) Red Cell Distribution Width 27.7 % (11.5-14.5) Platelet Count 447 x10^3/uL (140-400) Neutrophils (%) (Auto) 78 % (31-73) Lymphocytes (%) (Auto) 12 % (24-48) Monocytes (%) (Auto) 7 % (0-9) Eosinophils (%) (Auto) 1 % (0-3) Basophils (%) (Auto) 2 % (0-3) Neutrophils # (Auto) 7.6 x10^3uL (1.8-7.7) Lymphocytes # (Auto) 1.2 x10^3/uL (1.0-4.8) Monocytes # (Auto) 0.6 x10^3/uL (0.0-1.1) Eosinophils # (Auto) 0.1 x10^3/uL (0.0-0.7) Basophils # (Auto) 0.1 x10^3/uL (0.0-0.2) Sodium Level 144 mmol/L (136-145) Potassium Level 3.6 mmol/L (3.5-5.1) Chloride Level 106 mmol/L (98-107) Carbon Dioxide Level 27 mmol/L (21-32) Anion Gap 11 (6-14) Blood Urea Nitrogen 8 mg/dL (7-20) Creatinine 0.6 mg/dL (0.6-1.0) Estimated GFR (Cockcroft-Gault) 104.2 BUN/Creatinine Ratio 13 (6-20) Glucose Level 92 mg/dL (70-99) Calcium Level 9.3 mg/dL (8.5-10.1) Total Bilirubin 0.4 mg/dL (0.2-1.0) Aspartate Amino Transf (AST/SGOT) 30 U/L (15-37) Alanine Aminotransferase (ALT/SGPT) 48 U/L (14-59) Alkaline Phosphatase 99 U/L (46-116) Total Protein 7.9 g/dL (6.4-8.2) Albumin 3.4 g/dL (3.4-5.0) Albumin/Globulin Ratio 0.8 (1.0-1.7) Laboratory Tests Test 07/30/18 12:40 White Blood Count 9.7 x10^3/uL (4.0-11.0) Red Blood Count 4.17 x10^6/uL (3.50-5.40) Hemoglobin 10.8 g/dL (12.0-15.5) Hematocrit 33.9 % (36.0-47.0) Mean Corpuscular Volume 81 fL (79-100) Mean Corpuscular Hemoglobin 26 pg (25-35) Mean Corpuscular Hemoglobin Concent 32 g/dL (31-37) Red Cell Distribution Width 27.7 % (11.5-14.5) Platelet Count 447 x10^3/uL (140-400) Neutrophils (%) (Auto) 78 % (31-73) Lymphocytes (%) (Auto) 12 % (24-48) Monocytes (%) (Auto) 7 % (0-9) Eosinophils (%) (Auto) 1 % (0-3) Basophils (%) (Auto) 2 % (0-3) Neutrophils # (Auto) 7.6 x10^3uL (1.8-7.7) Lymphocytes # (Auto) 1.2 x10^3/uL (1.0-4.8) Monocytes # (Auto) 0.6 x10^3/uL (0.0-1.1) Eosinophils # (Auto) 0.1 x10^3/uL (0.0-0.7) Basophils # (Auto) 0.1 x10^3/uL (0.0-0.2) Sodium Level 144 mmol/L (136-145) Potassium Level 3.6 mmol/L (3.5-5.1) Chloride Level 106 mmol/L (98-107) Carbon Dioxide Level 27 mmol/L (21-32) Anion Gap 11 (6-14) Blood Urea Nitrogen 8 mg/dL (7-20) Creatinine 0.6 mg/dL (0.6-1.0) Estimated GFR (Cockcroft-Gault) 104.2 BUN/Creatinine Ratio 13 (6-20) Glucose Level 92 mg/dL (70-99) Calcium Level 9.3 mg/dL (8.5-10.1) Total Bilirubin 0.4 mg/dL (0.2-1.0) Aspartate Amino Transf (AST/SGOT) 30 U/L (15-37) Alanine Aminotransferase (ALT/SGPT) 48 U/L (14-59) Alkaline Phosphatase 99 U/L (46-116) Total Protein 7.9 g/dL (6.4-8.2) Albumin 3.4 g/dL (3.4-5.0) Albumin/Globulin Ratio 0.8 (1.0-1.7) VTE Prophylaxis Ordered VTE Prophylaxis Devices: Yes VTE Pharmacological Prophylaxi: Yes Assessment/Plan Assessment/Plan AUB Fibroids PMB SU BSO Stents by urology JOHANNA SOLARES MD Jul 30, 2018 13:29
--- NOTE | 2018-07-30 14:38 | PDOC4 ---
OPERATIVE NOTE Date: Date: Jul 30, 2018 Pre-Op Diagnosis: uterine fibroids Post-Op Diagnosis: same Procedure Performed: cysto, placement of ureteral catheters Surgeon: Marco Antonio Anesthesia Type: gen Blood Loss: min Specimans Obtained: none Findings: nl bladder Complications: neg Operative Note: cysto w pt under GA after prep and drape. bladder exam unrem. UO's in nl location. 5-Fr whistle-tip cath's placed thru each UO without diff. Scope removed and uret caths then secured to vega in usual fashion. Procedure then turned over to Dr Soler. JEISON REBOLLEDO MD Jul 30, 2018 14:38
[2018-07-30] MEDS ORDERED: NEOSTIGMINE 10 MG/10 ML VIAL. ONE (15:17)
[2018-07-30] MEDS ORDERED: SEVOFLURANE 61 TO 120 MINUTES. IH ONE (15:19)
[2018-07-30] MEDS ORDERED: KETOROLAC 30 MG/ML INJ FOR OR. INJ ONE (15:19)
--- NOTE | 2018-07-30 15:34 | PDOC ---
BRIEF OPERATIVE NOTE Date: Jul 30, 2018 Pre-Op Diagnosis AUB Leiomyomata Post-Op Diagnosis Same Procedure Performed SU BSO Surgeon Ryder Lentz Anesthesia Type: General Blood Loss 200cc Specimens Obtained UTO Complications None JOHANNA SOLARES MD Jul 30, 2018 15:34
[2018-07-30] MEDS ORDERED: CALCIUM CARBONATE 500 MG TAB.CHEW PO PRN (15:45)
[2018-07-30] MEDS ORDERED: diphenhydrAMINE HCL 25 MG CAPSULE PO PRN (15:45)
[2018-07-30] MEDS ORDERED: ZOLPIDEM 5 MG TABLET. PO PRN (15:45)
[2018-07-30] MEDS ORDERED: NALOXONE 0.4 MG/ML VIAL. IV PRN (15:45)
[2018-07-30] MEDS ORDERED: MAG HYDROX/ALUMINUM HYD/SIMETH 30 ML ORAL.SUSP PO PRN (15:45)
[2018-07-30] MEDS ORDERED: ONDANSETRON PF 4 MG/2 ML VIAL. IV PRN (15:45)
[2018-07-30] MEDS ORDERED: 0.9 % SODIUM CHLORIDE 10 ML DISP.SYRIN. IV PRN (15:45)
[2018-07-30] MEDS ORDERED: diphenhydrAMINE 50 MG/ML VIAL IV PRN (15:45)
[2018-07-30] MEDS: PROCHLORPERAZINE 10 MG/2 ML VIAL. IV PRN ×2 (16:08→16:28)
[2018-07-30] MEDS: fentaNYL PF VIAL 100 MCG/2 ML VIAL IV PRN ×2 (16:09→16:29)
[2018-07-30] MEDS: MORPHINE SULFATE 4 MG/ML VIAL. IV PRN ×4 (16:10→17:13)
[2018-07-30] MEDS: HYDROmorphone 2 MG/ML VIAL IV PRN ×3 (17:14→21:26)
[2018-07-30] MEDS: IV NORMAL SALINE 1000ML BAG 1,000 ML IV SCH (17:25)
[2018-07-30 18:05] VITALS: BP 117/61
--- NOTE | 2018-07-30 18:48 | PDOC1 ---
History and Physical Date of Admission Date of Admission DATE: 07/30/18 TIME: 18:47 Identification/Chief Complaint Chief Complaint ssen in pacu 53 yo with fibroid uterus and recurrent anemia developed initial episode of unprovoked DVT in April of 2018. She was anticoagulated at that time with some improvement but subsequently experience severe anemia with Hg of 3.3 requiring hospitalization and multiple tranfusions.admitted today for SU Past Medical History Past Medical History Past Medical History Past Medical History: Anemia, DVT, Other Additional Past Medical Histor: Brain damage from decreased O2 when giving 33 years ago/COMA hypoxic brain injury Past Surgical History: , Other Additional Past Surgical Histo: L)ankle to extend tendon,Trach & G-tube with removals. Alcohol Use: None Drug Use: None family hx obesity Cardiovascular: No pertinent hx, Syncope Pulmonary: No pertinent hx GI: No pertinent hx Heme/Onc: Iron deficiency Anemia, Other Hepatobiliary: No pertinent hx Psych: Other Rheumatologic: No pertinent hx Infectious disease: No pertinent hx Renal/: No pertinent hx Endocrine: No pertinent hx Past Surgical History Past Surgical History: Family History Family History: High Cholestrol, Family History Unknown, Adopted Social History Smoke: No ALCOHOL: none Drugs: None Current Medications Current Medications Current Medications Prochlorperazine Edisylate (Compazine) 5 mg PACU PRN PRN IV NAUSEA, MRX1 Last administered on 07/30/18at 16:28; Start 07/30/18 at 07:00; Stop 07/31/18 at 06:59 Hydromorphone HCl (Dilaudid) 0.5 mg PRN Q10MIN PRN IV SEV PAIN, Second choice Last administered on 07/30/18at 17:52; Start 07/30/18 at 07:00; Stop 07/31/18 at 06:59 Lidocaine HCl (Xylocaine-Mpf 1% 2ml Vial) 2 ml PRN 1X PRN ID IV START; Start at 07:00; Stop 07/31/18 at 06:59 Ringer's Solution 1,000 ml @ 30 mls/hr Q24H IV Last administered on 07/30/18at 13:02; Start 07/30/18 at 07:00; Stop 07/30/18 at 18:59 Morphine Sulfate (Morphine Sulfate) 1 mg PRN Q10MIN PRN IV SEVERE PAIN Last administered on 07/30/18at 17:13; Start 07/30/18 at 07:00; Stop 07/31/18 at 06:59 Fentanyl Citrate (Fentanyl 2ml Vial) 50 mcg PRN Q5MIN PRN IV MODERATE TO SEVERE PAIN Last administered on 07/30/18at 16:29; Start 07/30/18 at 07:00; Stop 07/31/18 at 06:59 Fentanyl Citrate (Fentanyl 2ml Vial) 25 mcg PRN Q5MIN PRN IV MILD PAIN; Start 07/30/18 at 07:00; Stop 07/31/18 at 06:59 Ondansetron HCl (Zofran) 4 mg PRN Q6HRS PRN IV NAUSEA/VOMITING; Start 07/30/18 at 07:00; Stop 07/31/18 at 06:59 Glycopyrrolate (Robinul) 1 mg 1X ONCE IV ; Start 07/30/18 at 08:30; Stop at 08:31; Status DC Cefazolin Sodium 50 ml @ 100 mls/hr 1X PREOP PRN IV SEE COMMENTS; Start at 06:00; Stop 07/31/18 at 18:00; Status UNV Clindamycin Phosphate 50 ml @ 100 mls/hr 1X ONCE IV Last administered on 07/30at 14:04; Start 07/30/18 at 13:00; Stop 07/30/18 at 13:29; Status DC Propofol 20 ml @ As Directed STK-MED ONCE IV ; Start 07/30/18 at 13:03; Stop at 13:04; Status DC Dexamethasone Sodium Phosphate (Decadron) 20 mg STK-MED ONCE .ROUTE ; Start at 13:03; Stop 07/30/18 at 13:04; Status DC Lidocaine HCl (Lidocaine Pf 2% Vial) 5 ml STK-MED ONCE .ROUTE ; Start 07/30/18 at 13:03; Stop 07/30/18 at 13:04; Status DC Ondansetron HCl (Zofran) 4 mg STK-MED ONCE .ROUTE ; Start 07/30/18 at 13:03; Stop 07/30/18 at 13:04; Status DC Rocuronium [place] (Zemuron) 50 mg STK-MED ONCE .ROUTE ; Start 07/30/18 at 13:03 ; Stop 07/30/18 at 13:04; Status DC Fentanyl Citrate (Fentanyl 2ml Vial) 100 mcg STK-MED ONCE .ROUTE ; Start at 13:03; Stop 07/30/18 at 13:04; Status DC Neostigmine Methylsulfate (Bloxiverz) 10 mg STK-MED ONCE .ROUTE ; Start at 15:17; Stop 07/30/18 at 15:18; Status DC Ketorolac Tromethamine (Toradol For Or Only) 30 mg STK-MED ONCE INJ ; Start at 15:19; Stop 07/30/18 at 15:20; Status DC Sevoflurane (Ultane) 60 ml STK-MED ONCE IH ; Start 07/30/18 at 15:19; Stop 07/30 at 15:20; Status DC Fentanyl Citrate (Fentanyl 2ml Vial) 100 mcg STK-MED ONCE .ROUTE ; Start at 15:25; Stop 07/30/18 at 15:26; Status DC Clindamycin Phosphate 50 ml @ 100 mls/hr Q8H IV ; Start 07/30/18 at 22:00; Stop 07/31/18 at 14:29 Al Hydroxide/Mg Hydroxide (Mylanta Plus Xs) 30 ml PRN Q3HRS PRN PO HEARTBURN / GAS; Start 07/30/18 at 15:45 Calcium Carbonate/ Glycine (Tums) 500 mg PRN Q3HRS PRN PO INDIGESTION; Start at 15:45 Simethicone (Gas-X) 80 mg PRN AFTMEALHC PRN PO GAS / BLOATING; Start 07/30/18 at 15:45 Diphenhydramine HCl (Benadryl) 25 mg PRN Q6HRS PRN PO ITCHING; Start 07/30/18 at 15:45 Diphenhydramine HCl (Benadryl) 25 mg PRN Q6HRS PRN IV ITCHING; Start 07/30/18 at 15:45 Zolpidem Tartrate (Ambien) 5 mg PRN QHS PRN PO INSOMNIA; Start 07/30/18 at 15: 45 Naloxone HCl (Narcan) 0.1 mg PRN Q2MIN PRN IV SEE COMMENTS; Start 07/30/18 at 15:45 Sodium Chloride (Normal Saline Flush) 3 ml QSHIFT PRN IV AFTER MEDS AND BLOOD DRAWS; Start 07/30/18 at 15:45 Sodium Chloride 1,000 ml @ 100 mls/hr Q10H IV Last administered on 07/30/18at 17:25; Start 07/30/18 at 15:35 Hydromorphone HCl (Dilaudid) 0.2 mg PRN Q1HR PRN IV PAIN; Start 07/30/18 at 15: 45 Oxycodone/ Acetaminophen (Percocet 5/325) 1 tab PRN Q4HRS PRN PO MILD PAIN, 1ST CHOICE; Start 07/30/18 at 15:45 Senna/Docusate Sodium (Senna Plus) 1 tab BID PO ; Start 07/30/18 at 21:00 Docusate Sodium (Colace) 100 mg BID PO ; Start 07/30/18 at 21:00 Ondansetron HCl (Zofran) 4 mg PRN Q6HRS PRN IV NAUESA, 1ST CHOICE; Start at 15:45 Enoxaparin Sodium (Lovenox 40mg Syringe) 40 mg 1X ONCE SQ ; Start 07/30/18 at 20:00; Stop 07/30/18 at 20:01 Active Scripts Active Ferrous Sulfate 325 Mg Tablet 1 Tab PO DAILY Allergies Allergies: Coded Allergies: Penicillins (Verified Allergy, Intermediate, Rash, 07/30/18) ROS Review of System Review of Systems Review of Systems Constitutional: Denies fever or chills [] Eyes: Denies change in visual acuity, redness, or eye pain [] HENT: MILD sore throat [] Respiratory: Denies cough or shortness of breath [] Cardiovascular: No additional information not addressed in HPI [] GI: Denies abdominal pain, nausea, vomiting, bloody stools or diarrhea [] : Denies dysuria or hematuria [] Musculoskeletal: Denies back pain or joint pain [] Integument: Denies rash or skin lesions [] Neurologic: Denies headache, focal weakness or sensory changes [] Endocrine: Denies polyuria or polydipsia [] 14 PT systems were reviewed and found to be within normal limits, except as documented . PSYCHOLOGICAL ROS: YES: Concentration difficultie Neurological: Yes Memory Loss Physical Exam Physical Exam Physical Exam Physical Exam Constitutional: Well developed, well nourished, no acute distress, non-toxic appearance. [] HENT: Normocephalic, atraumatic, bilateral external ears normal, oropharynx moist, no oral exudates, nose normal. [] Eyes: PERRLA, EOMI, conjunctiva normal, no discharge. [] Neck: Normal range of motion, no tenderness, supple, no stridor. [] Cardiovascular:Heart rate regular rhythm, no murmur [] Lungs & Thorax: Bilateral breath sounds clear to auscultation [] Abdomen: Bowel sounds normal, soft, no tenderness, no masses, no pulsatile masses. [] Skin: Warm, dry, no erythema, no rash. [] Back: No tenderness, no CVA tenderness. [] Extremities: No tenderness, no cyanosis, no clubbing, ROM intact, no edema. [] Neurologic: Alert and oriented X 3, normal motor function, normal sensory function, no focal deficits noted. [] Psychologic: Affect normal, judgement normal, mood normal. [] General: Alert, Oriented X3, Cooperative, mild distress HEENT: PERRLA, EOMI, Mucous membr. moist/pink Lungs: Clear to auscultation, Normal air movement Heart: no thrills, no rubs Breasts: Not examined Abdomen: Soft PELVIC: Examination not indicated Extremities: No clubbing, No cyanosis Neuro: Cranial nerves 3-12 NL Vitals Vitals Vital Signs Date Time Temp Pulse Resp B/P (MAP) Pulse Ox O2 Delivery O2 Flow Rate FiO2 07/30/18 18:05 98.5 65 12 117/61 (79) 98 Room Air 98.5 07/30/18 17:52 2.0 Labs Labs Laboratory Tests Test 07/30/18 12:40 White Blood Count 9.7 x10^3/uL (4.0-11.0) Red Blood Count 4.17 x10^6/uL (3.50-5.40) Hemoglobin 10.8 g/dL (12.0-15.5) Hematocrit 33.9 % (36.0-47.0) Mean Corpuscular Volume 81 fL (79-100) Mean Corpuscular Hemoglobin 26 pg (25-35) Mean Corpuscular Hemoglobin Concent 32 g/dL (31-37) Red Cell Distribution Width 27.7 % (11.5-14.5) Platelet Count 447 x10^3/uL (140-400) Neutrophils (%) (Auto) 78 % (31-73) Lymphocytes (%) (Auto) 12 % (24-48) Monocytes (%) (Auto) 7 % (0-9) Eosinophils (%) (Auto) 1 % (0-3) Basophils (%) (Auto) 2 % (0-3) Neutrophils # (Auto) 7.6 x10^3uL (1.8-7.7) Lymphocytes # (Auto) 1.2 x10^3/uL (1.0-4.8) Monocytes # (Auto) 0.6 x10^3/uL (0.0-1.1) Eosinophils # (Auto) 0.1 x10^3/uL (0.0-0.7) Basophils # (Auto) 0.1 x10^3/uL (0.0-0.2) Sodium Level 144 mmol/L (136-145) Potassium Level 3.6 mmol/L (3.5-5.1) Chloride Level 106 mmol/L (98-107) Carbon Dioxide Level 27 mmol/L (21-32) Anion Gap 11 (6-14) Blood Urea Nitrogen 8 mg/dL (7-20) Creatinine 0.6 mg/dL (0.6-1.0) Estimated GFR (Cockcroft-Gault) 104.2 BUN/Creatinine Ratio 13 (6-20) Glucose Level 92 mg/dL (70-99) Calcium Level 9.3 mg/dL (8.5-10.1) Total Bilirubin 0.4 mg/dL (0.2-1.0) Aspartate Amino Transf (AST/SGOT) 30 U/L (15-37) Alanine Aminotransferase (ALT/SGPT) 48 U/L (14-59) Alkaline Phosphatase 99 U/L (46-116) Total Protein 7.9 g/dL (6.4-8.2) Albumin 3.4 g/dL (3.4-5.0) Albumin/Globulin Ratio 0.8 (1.0-1.7) Laboratory Tests Test 07/30/18 12:40 White Blood Count 9.7 x10^3/uL (4.0-11.0) Red Blood Count 4.17 x10^6/uL (3.50-5.40) Hemoglobin 10.8 g/dL (12.0-15.5) Hematocrit 33.9 % (36.0-47.0) Mean Corpuscular Volume 81 fL (79-100) Mean Corpuscular Hemoglobin 26 pg (25-35) Mean Corpuscular Hemoglobin Concent 32 g/dL (31-37) Red Cell Distribution Width 27.7 % (11.5-14.5) Platelet Count 447 x10^3/uL (140-400) Neutrophils (%) (Auto) 78 % (31-73) Lymphocytes (%) (Auto) 12 % (24-48) Monocytes (%) (Auto) 7 % (0-9) Eosinophils (%) (Auto) 1 % (0-3) Basophils (%) (Auto) 2 % (0-3) Neutrophils # (Auto) 7.6 x10^3uL (1.8-7.7) Lymphocytes # (Auto) 1.2 x10^3/uL (1.0-4.8) Monocytes # (Auto) 0.6 x10^3/uL (0.0-1.1) Eosinophils # (Auto) 0.1 x10^3/uL (0.0-0.7) Basophils # (Auto) 0.1 x10^3/uL (0.0-0.2) Sodium Level 144 mmol/L (136-145) Potassium Level 3.6 mmol/L (3.5-5.1) Chloride Level 106 mmol/L (98-107) Carbon Dioxide Level 27 mmol/L (21-32) Anion Gap 11 (6-14) Blood Urea Nitrogen 8 mg/dL (7-20) Creatinine 0.6 mg/dL (0.6-1.0) Estimated GFR (Cockcroft-Gault) 104.2 BUN/Creatinine Ratio 13 (6-20) Glucose Level 92 mg/dL (70-99) Calcium Level 9.3 mg/dL (8.5-10.1) Total Bilirubin 0.4 mg/dL (0.2-1.0) Aspartate Amino Transf (AST/SGOT) 30 U/L (15-37) Alanine Aminotransferase (ALT/SGPT) 48 U/L (14-59) Alkaline Phosphatase 99 U/L (46-116) Total Protein 7.9 g/dL (6.4-8.2) Albumin 3.4 g/dL (3.4-5.0) Albumin/Globulin Ratio 0.8 (1.0-1.7) Images Images CT arteriogram of the chest. HISTORY: Tachycardia, history of deep venous thrombosis CT arteriogram was done using 90 mL is Omnipaque 350 contrast. Sagittal and coronal MIP images were reconstructed. Thyroid is homogeneous. There is no mediastinal adenopathy. There are calcified hilar and mediastinal nodes from granulomatous disease. There is no effusion. There is a gallstone in the gallbladder. There is a tiny benign lesion in the liver. Spleen and adrenal glands are normal. Pancreatic duct is mildly dilated. Pancreas is incompletely evaluated. Lungs are free of infiltrates. There is no effusion. There is a 8 mm groundglass nodule in the anterior right lower lobe similar to the recent study from July 05. Follow-up in 6 months to one year but would be recommended. This study is negative for evidence of a pulmonary embolus. IMPRESSION: 1. Negative for a pulmonary embolus 2. Groundglass nodule right lower lobe follow-up CT chest recommended in 6 months to one year. 3. Cholelithiasis. 4. Nonspecific mildly dilated pancreatic duct. 5. No acute infiltrates. PQRS Compliance Statement: One or more of the following individualized dose reduction techniques were utilized for this examination: 1. Automated exposure control 2. Adjustment of the mA and/or kV according to patient size 3. Use of iterative reconstruction technique Electronically signed by: Iam Rincon MD (07/21/2018 4:39 PM) [facility] DICTATED and SIGNED BY: IAM RINCON MD DATE: 07/21/18 1633 Left leg venous Doppler HISTORY: Left leg swelling, history of DVT, patient on blood thinners due to bleeding Duplex ultrasound was used to evaluate the veins of the left lower extremity. Real-time imaging with compression, color flow imaging and Doppler with augmentation were utilized for evaluation. The left common femoral, femoral, and popliteal veins are noncompressible. There is no flow with color imaging. There was no flow noted in the deep femoral vein with color imaging. Posterior tibial veins in the calf were noncompressible and do not have flow with color imaging. The right common femoral vein and greater saphenous veins are compressible and have flow with color imaging. IMPRESSION: 1. Extensive left leg deep venous thrombosis. Electronically signed by: Iam Rincon MD (07/21/2018 4:32 PM) [facility] VTE Prophylaxis Ordered VTE Prophylaxis Devices: Yes VTE Pharmacological Prophylaxi: Yes Assessment/Plan Assessment/Plan IMPRESSION: 1. Extensive left leg deep venous thrombosis. 2. hx uterine fibroids, extensive post SU TODAY 3. Left leg swelling - secondary to DVT, treat with lovenox, vascular surgery consulted, lack of left iliac vein precludes possibly of PE from left side 4. H/O DVT extensive left leg-started on Xarelto April or May 2018, sent home from ED with xarelto 15mg BID for 7 days and 20mg thereafter. Continued by her PCP. DRVVT negative, B2 neg, INR, PT, aPTT all WNL. 5. 5. 5 Protein C and S activity WNL, anticardiolipin not elevated. She was on Provera for recurrent menorrhagia. 6. Large fibroid uterus - scheduled for [facility]AHBSO on 07/31/18. Uterine bleeding/ menorrhagia - catarino menopausal. 7. H/o Precipitous drop in hemoglobin - 8. HX HYPOXIC BRAIN INJURY REMOTE PLAN IV HEPARIN low dose protocol Anticoagulation recommended to treat her DVT, and resumption of anticoagulation as early as possible in the post-operative period is encouraged. VASC surg consult icu bed 50 MIN CC TIME DENISHA DWYER MD Jul 30, 2018 18:48
[2018-07-30 19:00] VITALS: BP 117/61
[2018-07-30] MEDS ORDERED: HEPARIN for IV BOLUS 10,000 UNIT/10 ML VIAL. IV PRN ×2 (19:00)
[2018-07-30 20:00] VITALS: BP 117/61
[2018-07-30] MEDS ORDERED: ENOXAPARIN 40 MG/0.4 ML SYRINGE. SQ ONE (20:00)
[2018-07-30 21:00] VITALS: BP 111/49
[2018-07-30] MEDS: SENNOSIDES/DOCUSATE 8.6/50MG TABLET. PO SCH (21:24)
[2018-07-30] MEDS: DOCUSATE SODIUM 100 MG CAPSULE. PO SCH (21:24)
[2018-07-30] MEDS: CLINDAMYCIN 900MG PREMIX 50 ML IV SCH (21:26)
[2018-07-30 22:00] VITALS: BP 115/52
[2018-07-30 23:00] VITALS: BP 140/55
[2018-07-31] VITALS (19 sets, daily range): BP systolic 106–159; BP diastolic 46–101
--- NOTE | 2018-07-31 01:56 | OP ---
DATE OF SURGERY: 07/30/2018 PREOPERATIVE DIAGNOSES: Abnormal uterine bleeding, symptomatic leiomyomata. POSTOPERATIVE DIAGNOSES: Abnormal uterine bleeding, symptomatic leiomyomata. PROCEDURE: Total abdominal hysterectomy with bilateral salpingo-oophorectomy. SURGEON: Dr. Armando Soler. SAND HAULER: Dr. Puneet Lentz. INTRAOPERATIVE CONSULT AND PROCEDURE: By . FINDINGS: Dextrorotated uterus approximately 20-week size with multiple uterine fibroids, otherwise normal-appearing anatomy. Other than the uterus, ovaries appeared normal. Tubes appeared normal. ESTIMATED BLOOD LOSS: 200 mL. SPECIMENS: Uterus, tubes, and ovaries. COMPLICATIONS: None. CONDITION: Stable. DESCRIPTION OF PROCEDURE: Risks, benefits, indications, alternatives, and expectations were discussed with the patient and the patient's family. The patient was brought to the OR theater, placed in the dorsal lithotomy position in John stirrups. After . placed ureteral catheters, the patient was prepped and draped in the usual sterile manner. The patient had a previous midline scar. This was incised sharply, taken above the belly button with scalpel. The subcutaneous tissue was taken down both bluntly and sharply with the Bovie cautery. Rectus fascia was identified and incised sharply with Bovie cautery with care not to injure any underlying structures. The fascial incision was extended superiorly and inferiorly with Bovie cautery with care not to injure any underlying structures. The patient was placed in slight Trendelenburg. Uterus was delivered out of the pelvic cavity. The above findings were noted. Dayron retractor was placed around the uterus and the intestines were packed cephalad. Attention was then turned first to the left infundibulopelvic ligament. It was doubly clamped, doubly tied and cut. The remaining round ligament, broad ligament down to the cardinal ligaments were clamped, cut, and tied with care to making sure at all times where the ureter catheters were located. Good hemostasis was always assured after clamp, cut and tying the cardinal ligaments and making a bladder flap. The same procedure was carried out on the opposite side. There was some difficulty in assessing where the ureter catheter were, so the general approach of dividing the round ligament and going retroperitoneal was performed and the ureter catheter was identified. The remaining of the cardinal ligament was then able to be divided in clamped, cut and tie manner. The bladder flap was continued. A sponge stick was used to push the bladder down. Two curved Heaneys were clamped across the proximal edge of the cervix and the uterus was transected from this attachment and handed off the operative field. The remaining of the cervix was then removed with a straight and curved Jasmin clamps and with the use of the Felicianocho scissors it was transected from its attachment to the vagina. Cervix was noted to be intact. The vaginal cuff was reapproximated with 0 Vicryl in the usual fashion. Good hemostasis was assured. Pelvis was irrigated copiously with warm normal saline. The ureters were identified. These were removed by the nurse that palpated them running in their course and they both were intact. All lap, sponges were removed and accounted for. Dayron retractor was also removed. Once again, the pedicles were inspected and noted to be hemostatic. The fascia was reapproximated with double loop 0 PDS in the usual fashion. The subcutaneous tissue was irrigated copiously with warm normal saline. The skin was reapproximated first with Insorb bill and then with stainless steel bill for added strength. Sponge, needle and instrument counts were correct x 3 per nursing staff. The patient went to postop anesthesia recovery in stable condition. ARMANDO SOLER MD DR: SANDRA/smiley JOB#: [id number] / [id number]
[2018-07-31] MEDS: IV NORMAL SALINE 1000ML BAG 1,000 ML IV SCH ×2 (04:11→19:42)
[2018-07-31] MEDS: CLINDAMYCIN 900MG PREMIX 50 ML IV SCH ×2 (06:05→14:38)
[2018-07-31 06:16] LABS: CALCIUM 8.2 mg/dL (8.5-10.1); CREATININE 0.6 mg/dL (0.6-1.0); GFR 104.2
[2018-07-31] MEDS: DOCUSATE SODIUM 100 MG CAPSULE. PO SCH ×2 (09:00→21:16)
[2018-07-31] MEDS: FERROUS SULFATE 325 MG TABLET. PO SCH (09:00)
[2018-07-31] MEDS: SENNOSIDES/DOCUSATE 8.6/50MG TABLET. PO SCH ×2 (09:00→21:17)
--- NOTE | 2018-07-31 09:34 | NUR ---
SS following for discharge planning. Pt is from home and currently on room air. No discharge needs noted at this time. SS will continue to follow for pending discharge needs.
[2018-07-31] MEDS: HYDROmorphone 2 MG/ML VIAL IV PRN ×3 (10:14→19:39)
[2018-07-31] MEDS: HEPARIN 25,000UTS/500ML PREMIX 500 ML IV PRN (10:33)
[2018-07-31] MEDS: ANTI-COAG MONITOR BY PHARMACY. MC PRN (10:44)
--- NOTE | 2018-07-31 14:35 | PDOC ---
Provider Note Provider Note Vascular S: Patient seen and examined in room. Dr. Israel present Patient continues to complain of left leg swelling. O: Awake and alert HRR Non-labored respirations Abdomen with prevena vac in place, minimal collection in canister Left leg with severe swelling. A/P: Left leg extensive DVT, admitted and s/p SU, BSO Recommend anticoagulation, heparin gtt for 24 hours then transition to oral anticoagulation if ok with Dr. Soler, discussed with nurse. If heparin gtt started then patient does not need IVC filter. Recommend left leg elevation and bon hose, continue compression therapy upon discharge. Recommend follow up 10/10/2018 1:00 for OV and venous ultrasound. CONCHITA BYRNE APRN Jul 31, 2018 14:35
--- NOTE | 2018-07-31 15:15 | PDOC ---
PROGRESS NOTES Chief Complaint Chief Complaint 1. Extensive left leg deep venous thrombosis. 2. hx uterine fibroids, extensive post SU 07/31/2018 3. Left leg swelling - secondary to DVT, treat with lovenox, vascular surgery consulted, lack of left iliac vein precludes possibly of PE from left side 4. H/O DVT extensive left leg-started on Xarelto April or May 2018, sent home from ED with xarelto 15mg BID for 7 days and 20mg thereafter. Continued by her PCP. DRVVT negative, B2 neg, INR, PT, aPTT all WNL. 5. 5. 5 Protein C and S activity WNL, anticardiolipin not elevated. She was on Provera for recurrent menorrhagia. 6. Large fibroid uterus - scheduled for [facility] on 07/31/18. Uterine bleeding/ menorrhagia - catarino menopausal. 7. H/o Precipitous drop in hemoglobin - PLAN IV HEPARIN low dose protocol Anticoagulation recommended to treat her DVT, and resumption of anticoagulation as early as possible in the post-operative period is encouraged. VASC surg consult continue supportive measures History of Present Illness History of Present Illness Patient laying in bed in no apparent distress. Patient underwent total abdominal hysterectomy with no complications. 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 All concerns address to the best of my abilities Vitals Vitals Vital Signs Date Time Temp Pulse Resp B/P (MAP) Pulse Ox O2 Delivery O2 Flow Rate FiO2 07/31/18 12:00 Room Air 07/31/18 11:00 68 12 119/59 (79) 96 07/31/18 08:00 98.6 98.6 07/31/18 04:00 2.0 Physical Exam General: Alert, Oriented X3, Cooperative, mild distress Lungs: Clear Abdomen: Soft Extremities: No clubbing, No cyanosis Skin: No rashes, No breakdown, No significant lesion Labs LABS Laboratory Tests Test 07/30/18 18:40 07/31/18 04:30 Nasal Screen MRSA (PCR) Negative (Negative) Hematocrit 30.2 % (36.0-47.0) Sodium Level 140 mmol/L (136-145) Potassium Level 4.0 mmol/L (3.5-5.1) Chloride Level 104 mmol/L (98-107) Carbon Dioxide Level 25 mmol/L (21-32) Anion Gap 11 (6-14) Blood Urea Nitrogen 5 mg/dL (7-20) Creatinine 0.6 mg/dL (0.6-1.0) Estimated GFR (Cockcroft-Gault) 104.2 Glucose Level 99 mg/dL (70-99) Calcium Level 8.2 mg/dL (8.5-10.1) Review of Systems Review of Systems Pertinent as per history of present illness otherwise 14 point review of system is negative Comment Review of Relevant I have reviewed the following items anton (where applicable) has been applied. Labs Laboratory Tests Test 07/30/18 12:40 07/30/18 18:40 07/31/18 04:30 White Blood Count 9.7 x10^3/uL (4.0-11.0) Red Blood Count 4.17 x10^6/uL (3.50-5.40) Hemoglobin 10.8 g/dL (12.0-15.5) Hematocrit 33.9 % (36.0-47.0) 30.2 % (36.0-47.0) Mean Corpuscular Volume 81 fL (79-100) Mean Corpuscular Hemoglobin 26 pg (25-35) Mean Corpuscular Hemoglobin Concent 32 g/dL (31-37) Red Cell Distribution Width 27.7 % (11.5-14.5) Platelet Count 447 x10^3/uL (140-400) Neutrophils (%) (Auto) 78 % (31-73) Lymphocytes (%) (Auto) 12 % (24-48) Monocytes (%) (Auto) 7 % (0-9) Eosinophils (%) (Auto) 1 % (0-3) Basophils (%) (Auto) 2 % (0-3) Neutrophils # (Auto) 7.6 x10^3uL (1.8-7.7) Lymphocytes # (Auto) 1.2 x10^3/uL (1.0-4.8) Monocytes # (Auto) 0.6 x10^3/uL (0.0-1.1) Eosinophils # (Auto) 0.1 x10^3/uL (0.0-0.7) Basophils # (Auto) 0.1 x10^3/uL (0.0-0.2) Sodium Level 144 mmol/L (136-145) 140 mmol/L (136-145) Potassium Level 3.6 mmol/L (3.5-5.1) 4.0 mmol/L (3.5-5.1) Chloride Level 106 mmol/L (98-107) 104 mmol/L (98-107) Carbon Dioxide Level 27 mmol/L (21-32) 25 mmol/L (21-32) Anion Gap 11 (6-14) 11 (6-14) Blood Urea Nitrogen 8 mg/dL (7-20) 5 mg/dL (7-20) Creatinine 0.6 mg/dL (0.6-1.0) 0.6 mg/dL (0.6-1.0) Estimated GFR (Cockcroft-Gault) 104.2 104.2 BUN/Creatinine Ratio 13 (6-20) Glucose Level 92 mg/dL (70-99) 99 mg/dL (70-99) Calcium Level 9.3 mg/dL (8.5-10.1) 8.2 mg/dL (8.5-10.1) Total Bilirubin 0.4 mg/dL (0.2-1.0) Aspartate Amino Transf (AST/SGOT) 30 U/L (15-37) Alanine Aminotransferase (ALT/SGPT) 48 U/L (14-59) Alkaline Phosphatase 99 U/L (46-116) Total Protein 7.9 g/dL (6.4-8.2) Albumin 3.4 g/dL (3.4-5.0) Albumin/Globulin Ratio 0.8 (1.0-1.7) Nasal Screen MRSA (PCR) Negative (Negative) Laboratory Tests Test 07/30/18 18:40 07/31/18 04:30 Nasal Screen MRSA (PCR) Negative (Negative) Hematocrit 30.2 % (36.0-47.0) Sodium Level 140 mmol/L (136-145) Potassium Level 4.0 mmol/L (3.5-5.1) Chloride Level 104 mmol/L (98-107) Carbon Dioxide Level 25 mmol/L (21-32) Anion Gap 11 (6-14) Blood Urea Nitrogen 5 mg/dL (7-20) Creatinine 0.6 mg/dL (0.6-1.0) Estimated GFR (Cockcroft-Gault) 104.2 Glucose Level 99 mg/dL (70-99) Calcium Level 8.2 mg/dL (8.5-10.1) Medications Current Medications Prochlorperazine Edisylate (Compazine) 5 mg PACU PRN PRN IV NAUSEA, MRX1 Last administered on 07/30/18at 16:28; Start 07/30/18 at 07:00; Stop 07/31/18 at 06:59 ; Status DC Hydromorphone HCl (Dilaudid) 0.5 mg PRN Q10MIN PRN IV SEV PAIN, Second choice Last administered on 07/30/18at 17:52; Start 07/30/18 at 07:00; Stop 07/31/18 at 06:59; Status DC Lidocaine HCl (Xylocaine-Mpf 1% 2ml Vial) 2 ml PRN 1X PRN ID IV START; Start at 07:00; Stop 07/31/18 at 06:59; Status DC Ringer's Solution 1,000 ml @ 30 mls/hr Q24H IV Last administered on 07/30/18at 13:02; Start 07/30/18 at 07:00; Stop 07/30/18 at 18:59; Status DC Morphine Sulfate (Morphine Sulfate) 1 mg PRN Q10MIN PRN IV SEVERE PAIN Last administered on 07/30/18at 17:13; Start 07/30/18 at 07:00; Stop 07/31/18 at 06:59 ; Status DC Fentanyl Citrate (Fentanyl 2ml Vial) 50 mcg PRN Q5MIN PRN IV MODERATE TO SEVERE PAIN Last administered on 07/30/18at 16:29; Start 07/30/18 at 07:00; Stop 07/31/18 at 06:59; Status DC Fentanyl Citrate (Fentanyl 2ml Vial) 25 mcg PRN Q5MIN PRN IV MILD PAIN; Start 07/30/18 at 07:00; Stop 07/31/18 at 06:59; Status DC Ondansetron HCl (Zofran) 4 mg PRN Q6HRS PRN IV NAUSEA/VOMITING; Start 07/30/18 at 07:00; Stop 07/31/18 at 06:59; Status DC Glycopyrrolate (Robinul) 1 mg 1X ONCE IV ; Start 07/30/18 at 08:30; Stop at 08:31; Status DC Cefazolin Sodium 50 ml @ 100 mls/hr 1X PREOP PRN IV SEE COMMENTS; Start at 06:00; Stop 07/31/18 at 18:00; Status UNV Clindamycin Phosphate 50 ml @ 100 mls/hr 1X ONCE IV Last administered on 07/30at 14:04; Start 07/30/18 at 13:00; Stop 07/30/18 at 13:29; Status DC Propofol 20 ml @ As Directed STK-MED ONCE IV ; Start 07/30/18 at 13:03; Stop at 13:04; Status DC Dexamethasone Sodium Phosphate (Decadron) 20 mg STK-MED ONCE .ROUTE ; Start at 13:03; Stop 07/30/18 at 13:04; Status DC Lidocaine HCl (Lidocaine Pf 2% Vial) 5 ml STK-MED ONCE .ROUTE ; Start 07/30/18 at 13:03; Stop 07/30/18 at 13:04; Status DC Ondansetron HCl (Zofran) 4 mg STK-MED ONCE .ROUTE ; Start 07/30/18 at 13:03; Stop 07/30/18 at 13:04; Status DC Rocuronium [place] (Zemuron) 50 mg STK-MED ONCE .ROUTE ; Start 07/30/18 at 13:03 ; Stop 07/30/18 at 13:04; Status DC Fentanyl Citrate (Fentanyl 2ml Vial) 100 mcg STK-MED ONCE .ROUTE ; Start at 13:03; Stop 07/30/18 at 13:04; Status DC Neostigmine Methylsulfate (Bloxiverz) 10 mg STK-MED ONCE .ROUTE ; Start at 15:17; Stop 07/30/18 at 15:18; Status DC Ketorolac Tromethamine (Toradol For Or Only) 30 mg STK-MED ONCE INJ ; Start at 15:19; Stop 07/30/18 at 15:20; Status DC Sevoflurane (Ultane) 60 ml STK-MED ONCE IH ; Start 07/30/18 at 15:19; Stop 07/30 at 15:20; Status DC Fentanyl Citrate (Fentanyl 2ml Vial) 100 mcg STK-MED ONCE .ROUTE ; Start at 15:25; Stop 07/30/18 at 15:26; Status DC Clindamycin Phosphate 50 ml @ 100 mls/hr Q8H IV Last administered on at 14:38; Start 07/30/18 at 22:00; Stop 07/31/18 at 14:29; Status DC Al Hydroxide/Mg Hydroxide (Mylanta Plus Xs) 30 ml PRN Q3HRS PRN PO HEARTBURN / GAS; Start 07/30/18 at 15:45 Calcium Carbonate/ Glycine (Tums) 500 mg PRN Q3HRS PRN PO INDIGESTION; Start at 15:45 Simethicone (Gas-X) 80 mg PRN AFTMEALHC PRN PO GAS / BLOATING; Start 07/30/18 at 15:45 Diphenhydramine HCl (Benadryl) 25 mg PRN Q6HRS PRN PO ITCHING; Start 07/30/18 at 15:45 Diphenhydramine HCl (Benadryl) 25 mg PRN Q6HRS PRN IV ITCHING; Start 07/30/18 at 15:45 Zolpidem Tartrate (Ambien) 5 mg PRN QHS PRN PO INSOMNIA; Start 07/30/18 at 15: 45 Naloxone HCl (Narcan) 0.1 mg PRN Q2MIN PRN IV SEE COMMENTS; Start 07/30/18 at 15:45 Sodium Chloride (Normal Saline Flush) 3 ml QSHIFT PRN IV AFTER MEDS AND BLOOD DRAWS; Start 07/30/18 at 15:45 Sodium Chloride 1,000 ml @ 100 mls/hr Q10H IV Last administered on 07/31/18at 04:11; Start 07/30/18 at 15:35 Hydromorphone HCl (Dilaudid) 0.2 mg PRN Q1HR PRN IV PAIN Last administered on at 10:14; Start 07/30/18 at 15:45 Oxycodone/ Acetaminophen (Percocet 5/325) 1 tab PRN Q4HRS PRN PO MILD PAIN, 1ST CHOICE; Start 07/30/18 at 15:45 Senna/Docusate Sodium (Senna Plus) 1 tab BID PO Last administered on 07/30/18at 21:24; Start 07/30/18 at 21:00 Docusate Sodium (Colace) 100 mg BID PO Last administered on 07/30/18at 21:24; Start 07/30/18 at 21:00 Ondansetron HCl (Zofran) 4 mg PRN Q6HRS PRN IV NAUESA, 1ST CHOICE; Start at 15:45 Enoxaparin Sodium (Lovenox 40mg Syringe) 40 mg 1X ONCE SQ ; Start 07/30/18 at 20:00; Stop 07/30/18 at 20:01; Status Cancel Heparin Sodium/ Dextrose 500 ml @ 0 mls/hr CONT PRN IV SEE I/O RECORD Last administered on 07/31/18at 10:33; Start 07/30/18 at 19:00 Heparin Sodium (Porcine) (Heparin Sodium) 2,000 unit PRN Q6HRS PRN IV FOR UFH LEVEL LESS THAN 0.2; Start 07/30/18 at 19:00 Heparin Sodium (Porcine) (Heparin Sodium) 1,000 unit PRN Q6HRS PRN IV FOR UFH LEVEL 0.2 - 0.29; Start 07/30/18 at 19:00 Ferrous Sulfate (Feosol) 325 mg DAILY PO ; Start 07/31/18 at 09:00 Info (Anti-Coagulation Monitoring By Pharmacy) 1 each PRN DAILY PRN MC SEE COMMENTS Last administered on 07/31/18at 10:44; Start 07/31/18 at 10:45 Active Scripts Active Lovenox (Enoxaparin Sodium) 80 Mg/0.8 Ml Disp.syrin 80 Mg SQ BID 7 Days Ferrous Sulfate 325 Mg Tablet 1 Tab PO DAILY Vitals/I & O Vital Sign - Last 24 Hours 07/30/18 07/30/18 07/30/18 07/30/18 15:44 15:44 15:59 16:09 Pulse 65 66 Resp 20 20 20 B/P (MAP) 133/115 119/47 Pulse Ox 98 100 99 O2 Delivery Mask Simple Mask Simple Mask Simple Mask O2 Flow Rate 10 10 10 10.0 07/30/18 07/30/18 07/30/18 07/30/18 16:10 16:14 16:28 16:29 Pulse 66 Resp 20 20 20 20 B/P (MAP) 138/48 Pulse Ox 100 98 99 99 O2 Delivery Simple Mask O2 Flow Rate 10.0 10 07/30/18 07/30/18 07/30/18 07/30/18 16:30 16:45 16:56 17:00 Temp 97.6 97.4 97.6 97.4 Pulse 87 68 76 Resp 20 22 20 20 B/P (MAP) 138/48 126/53 128/70 Pulse Ox 97 96 97 99 O2 Delivery Room Air Room Air Room Air 07/30/18 07/30/18 07/30/18 07/30/18 17:13 17:14 17:15 17:30 Temp 97.5 97.5 Pulse 80 78 Resp 20 20 20 20 B/P (MAP) 120/55 118/76 Pulse Ox 99 94 95 95 O2 Delivery Room Air Room Air Room Air Room Air 07/30/18 07/30/18 07/30/18 07/30/18 17:45 17:52 18:00 18:05 Temp 98.5 98.5 Pulse 90 78 65 Resp 20 20 20 12 B/P (MAP) 115/94 126/75 117/61 (79) Pulse Ox 94 99 98 98 O2 Delivery Room Air Room Air Room Air Room Air O2 Flow Rate 2.0 07/30/18 07/30/18 07/30/18 07/30/18 19:00 20:00 20:00 21:00 Temp 98.2 98.2 Pulse 92 63 81 Resp 10 11 25 B/P (MAP) 117/61 (79) 117/61 (79) 111/49 (69) Pulse Ox 97 97 97 O2 Delivery Room Air Mask Room Air Room Air O2 Flow Rate 2.0 07/30/18 07/30/18 07/30/18 07/30/18 21:26 22:00 23:00 23:59 Pulse 68 63 Resp 29 10 10 B/P (MAP) 115/52 (73) 140/55 (83) Pulse Ox 97 96 96 O2 Delivery Room Air Room Air Room Air Mask O2 Flow Rate 2.0 07/31/18 07/31/18 07/31/18 07/31/18 01:00 02:00 03:00 04:00 Pulse 63 63 71 71 Resp 10 10 19 19 B/P (MAP) 114/56 (75) 110/56 (74) 123/63 (83) 110/55 (73) Pulse Ox 96 96 96 96 O2 Delivery Room Air Room Air Room Air Room Air 07/31/18 07/31/18 07/31/18 07/31/18 04:00 05:00 06:00 07:00 Pulse 65 82 66 Resp 19 18 11 B/P (MAP) 106/46 (66) 123/55 (77) 109/47 (67) Pulse Ox 96 96 97 O2 Delivery Mask Room Air Room Air Room Air O2 Flow Rate 2.0 07/31/18 07/31/18 07/31/18 07/31/18 08:00 08:00 09:00 10:00 Temp 98.6 98.6 Pulse 69 82 74 Resp 14 20 26 B/P (MAP) 127/62 (83) 131/68 (89) 143/61 (88) Pulse Ox 98 98 98 O2 Delivery Room Air Room Air Room Air Room Air 07/31/18 07/31/18 07/31/18 07/31/18 10:14 10:45 11:00 12:00 Pulse 68 Resp 17 14 12 B/P (MAP) 119/59 (79) Pulse Ox 98 96 96 O2 Delivery Room Air Room Air Room Air Room Air Intake and Output 07/30/18 07/30/18 07/31/18 15:00 23:00 07:00 Intake Total 2110 ml 20 ml Output Total 1385 ml 375 ml Balance 725 ml -355 ml NOHEMY ALDANA MD Jul 31, 2018 15:15
[2018-07-31 16:35] LABS: BASO # 0.1 x10^3/uL (0.0-0.2); BASO % 1 % (0-3); EOS % 0 % (0-3); HEMATOCRIT 29.4 % (36.0-47.0); HEMOGLOBIN 9.5 g/dL (12.0-15.5); LYMPH # 1.4 x10^3/uL (1.0-4.8); LYMPH % 14 % (24-48); MEAN CORPUSCULAR HEMOGLOBIN 26 pg (25-35); MEAN CORPUSCULAR HGB CONC 32 g/dL (31-37); MEAN CORPUSCULAR VOLUME 80 fL (79-100); MONO # 0.8 x10^3/uL (0.0-1.1); MONO % 8 % (0-9); NEUT # 7.4 x10^3uL (1.8-7.7); NEUT % 77 % (31-73); PLATELET COUNT 314 x10^3/uL (140-400); RED BLOOD COUNT 3.67 x10^6/uL (3.50-5.40); RED CELL DISTRIBUTION WIDTH 27.3 % (11.5-14.5); WHITE BLOOD COUNT 9.6 x10^3/uL (4.0-11.0)
[2018-07-31 16:58] LABS: ANISOCYTOSIS MARKED; PLT ESTIMATE ADEQUATE (ADEQUATE); POLYCHROMASIA SLIGHT; SCHISTOCYTES OCC; TOXIC GRANULATION SLIGHT
[2018-07-31] MEDS: oxyCODONE/APAP 5/325 1 TAB TABLET PO PRN ×2 (18:17→21:17)
--- NOTE | 2018-07-31 18:53 | PDOC2 ---
CONSULT Date of Consult Date of Consult DATE: 07/31/18 TIME: 18:39 Reason for consultation: Blood clot Consult: Hematology oncology, Dr. Paula Roblero History of present illness: She is a 53-year-old female with a history of acute left lower extremity DVT, sx had worsened over time until dx, in April 2018, she was placed on Lovenox w/ improvement in sx and then transitioned to Xarelto , Xarelto had to be stopped one July 2018 due to associated profound anemia related to menorrhagia, an IVC filter was attempted but not necessary as she did not have a patent left iliac vein noted by IR, she had transfusion for her anemia and was hospitalized for hysterectomy which she underwent yesterday on 30 July, she's doing well postoperatively and has been since placed on a heparin drip with plans for transition to Lovenox and then back to Xarelto for planned 3 months with follow-up ultrasound at that time. She has been evaluated by vascular surgery. She still has left lower extremity swelling but no pain at rest but she does note pain with weightbearing. Her mother is her caregiver. Past medical history: Left lower extremity DVT April 2018 with progression off anticoagulation Jul 2018 History of menorrhagia History of profound anemia History of uterine fibroids Anoxic brain injury during childbirth in her early 20s Past surgical history: Total abdominal hysterectomy Left ankle surgery Tracheostomy with removal G-tube with removal Allergies: Penicillin Medications: See attached list Social history: Mother cares for her, no tobacco or alcohol Family history: Hyperlipidemia, obesity Review of systems: LLE swelling, and some abdominal pain postop otherwise 10 point review of systems negative Physical exam: Vitals reviewed Gen.: Well-nourished and well-developed in no acute distress, sl speech abnormality, her mother helps give hx HEENT: mucous membranes moist, head normocephalic atraumatic Neck: Supple, no lymphadenopathy Lymph nodes: No palpable lymphadenopathy neck or axilla Lungs: Breathing comfortably, no evidence of respiratory distress Abdomen: Soft, slightly tender, nondistended, no guarding or rebound Extremities: No cyanosis, does have LLE edema Skin: No obvious rashes or skin breakdown Neuro: Alert and oriented Psych: Normal mood and affect Lab reviewed: White count 9.6, hemoglobin 9.5, platelets 314, creatinine 0.6 Rads reviewed: July 2018 CT angiogram and abdomen pelvis CT showed no PE , right lower lobe groundglass density, fibroids compressing bladder, distal right ureter and IVC without thrombosis CTA 21 July 2018 showed no PE, right lower lobe pulmonary nodule recommend 6 month follow-up 21 July 2018 left lower extremity ultrasound shows extensive left leg DVT Case discussed with: Family, records reviewed in [facility], including labs and radiology, please see note for summary details. Assessment and Plan: She is a 53-year-old female with a history of left lower extremity DVT in April 2018, improved with anticoagulation though anticoagulation had to be stopped one July due to menorrhagia from fibroid bleeding, requiring transfusion, she had hysterectomy yesterday and anticoagulation has been started postoperatively. IVC filter off anticoagulation not needed due to lack of patent left iliac vein. Left lower extremity DVT: Would treat for another 3 months from now and then recheck ultrasound, this can be done through our clinic as needed, she is currently on heparin drip, with plans to transition to Lovenox and then back to Xarelto per her family, this should be fine, recommend avoiding exogenous hormones Anemia: We'll check ferritin and iron panel with history of blood loss from fibroids Left lower extremity swelling: Vascular surgery has seen her and will see her in follow-up in October, and recommend leg elevation and [place] hose with compression stockings upon discharge Thrombosis worsening off anticoagulation: Could consider hypercoagulable workup , she has had a hysterectomy, would ensure cancer screening up to date as well as an outpatient Pulmonary nodule on chest CT: Recommended 6 month follow-up which will be due January 2019, can be done through primary care as needed Thank you kindly for this consultation, and please don't hesitate to call with any further questions. Past Medical History Cardiovascular: No pertinent hx, Syncope Pulmonary: No pertinent hx GI: No pertinent hx Heme/Onc: Iron deficiency Anemia, Other Hepatobiliary: No pertinent hx Psych: Other Rheumatologic: No pertinent hx Infectious disease: No pertinent hx Renal/: No pertinent hx Endocrine: No pertinent hx Past Surgical History Past Surgical History: Family History Family History: High Cholestrol, Family History Unknown, Adopted Social History No ALCOHOL: none Drugs: None Current Medications Current Medications Current Medications Prochlorperazine Edisylate (Compazine) 5 mg PACU PRN PRN IV NAUSEA, MRX1 Last administered on 07/30/18at 16:28; Start 07/30/18 at 07:00; Stop 07/31/18 at 06:59 ; Status DC Hydromorphone HCl (Dilaudid) 0.5 mg PRN Q10MIN PRN IV SEV PAIN, Second choice Last administered on 07/30/18at 17:52; Start 07/30/18 at 07:00; Stop 07/31/18 at 06:59; Status DC Lidocaine HCl (Xylocaine-Mpf 1% 2ml Vial) 2 ml PRN 1X PRN ID IV START; Start at 07:00; Stop 07/31/18 at 06:59; Status DC Ringer's Solution 1,000 ml @ 30 mls/hr Q24H IV Last administered on 07/30/18at 13:02; Start 07/30/18 at 07:00; Stop 07/30/18 at 18:59; Status DC Morphine Sulfate (Morphine Sulfate) 1 mg PRN Q10MIN PRN IV SEVERE PAIN Last administered on 07/30/18at 17:13; Start 07/30/18 at 07:00; Stop 07/31/18 at 06:59 ; Status DC Fentanyl Citrate (Fentanyl 2ml Vial) 50 mcg PRN Q5MIN PRN IV MODERATE TO SEVERE PAIN Last administered on 07/30/18at 16:29; Start 07/30/18 at 07:00; Stop 07/31/18 at 06:59; Status DC Fentanyl Citrate (Fentanyl 2ml Vial) 25 mcg PRN Q5MIN PRN IV MILD PAIN; Start 07/30/18 at 07:00; Stop 07/31/18 at 06:59; Status DC Ondansetron HCl (Zofran) 4 mg PRN Q6HRS PRN IV NAUSEA/VOMITING; Start 07/30/18 at 07:00; Stop 07/31/18 at 06:59; Status DC Glycopyrrolate (Robinul) 1 mg 1X ONCE IV ; Start 07/30/18 at 08:30; Stop at 08:31; Status DC Cefazolin Sodium 50 ml @ 100 mls/hr 1X PREOP PRN IV SEE COMMENTS; Start at 06:00; Stop 07/31/18 at 18:00; Status UNV Clindamycin Phosphate 50 ml @ 100 mls/hr 1X ONCE IV Last administered on 07/30at 14:04; Start 07/30/18 at 13:00; Stop 07/30/18 at 13:29; Status DC Propofol 20 ml @ As Directed STK-MED ONCE IV ; Start 07/30/18 at 13:03; Stop at 13:04; Status DC Dexamethasone Sodium Phosphate (Decadron) 20 mg STK-MED ONCE .ROUTE ; Start at 13:03; Stop 07/30/18 at 13:04; Status DC Lidocaine HCl (Lidocaine Pf 2% Vial) 5 ml STK-MED ONCE .ROUTE ; Start 07/30/18 at 13:03; Stop 07/30/18 at 13:04; Status DC Ondansetron HCl (Zofran) 4 mg STK-MED ONCE .ROUTE ; Start 07/30/18 at 13:03; Stop 07/30/18 at 13:04; Status DC Rocuronium Zalma (Zemuron) 50 mg STK-MED ONCE .ROUTE ; Start 07/30/18 at 13:03 ; Stop 07/30/18 at 13:04; Status DC Fentanyl Citrate (Fentanyl 2ml Vial) 100 mcg STK-MED ONCE .ROUTE ; Start at 13:03; Stop 07/30/18 at 13:04; Status DC Neostigmine Methylsulfate (Bloxiverz) 10 mg STK-MED ONCE .ROUTE ; Start at 15:17; Stop 07/30/18 at 15:18; Status DC Ketorolac Tromethamine (Toradol For Or Only) 30 mg STK-MED ONCE INJ ; Start at 15:19; Stop 07/30/18 at 15:20; Status DC Sevoflurane (Ultane) 60 ml STK-MED ONCE IH ; Start 07/30/18 at 15:19; Stop 07/30 at 15:20; Status DC Fentanyl Citrate (Fentanyl 2ml Vial) 100 mcg STK-MED ONCE .ROUTE ; Start at 15:25; Stop 07/30/18 at 15:26; Status DC Clindamycin Phosphate 50 ml @ 100 mls/hr Q8H IV Last administered on at 14:38; Start 07/30/18 at 22:00; Stop 07/31/18 at 14:29; Status DC Al Hydroxide/Mg Hydroxide (Mylanta Plus Xs) 30 ml PRN Q3HRS PRN PO HEARTBURN / GAS; Start 07/30/18 at 15:45 Calcium Carbonate/ Glycine (Tums) 500 mg PRN Q3HRS PRN PO INDIGESTION; Start at 15:45 Simethicone (Gas-X) 80 mg PRN AFTMEALHC PRN PO GAS / BLOATING; Start 07/30/18 at 15:45 Diphenhydramine HCl (Benadryl) 25 mg PRN Q6HRS PRN PO ITCHING; Start 07/30/18 at 15:45 Diphenhydramine HCl (Benadryl) 25 mg PRN Q6HRS PRN IV ITCHING; Start 07/30/18 at 15:45 Zolpidem Tartrate (Ambien) 5 mg PRN QHS PRN PO INSOMNIA; Start 07/30/18 at 15: 45 Naloxone HCl (Narcan) 0.1 mg PRN Q2MIN PRN IV SEE COMMENTS; Start 07/30/18 at 15:45 Sodium Chloride (Normal Saline Flush) 3 ml QSHIFT PRN IV AFTER MEDS AND BLOOD DRAWS; Start 07/30/18 at 15:45 Sodium Chloride 1,000 ml @ 100 mls/hr Q10H IV Last administered on 07/31/18at 04:11; Start 07/30/18 at 15:35 Hydromorphone HCl (Dilaudid) 0.2 mg PRN Q1HR PRN IV PAIN Last administered on at 16:24; Start 07/30/18 at 15:45 Oxycodone/ Acetaminophen (Percocet 5/325) 1 tab PRN Q4HRS PRN PO MILD PAIN, 1ST CHOICE Last administered on 07/31/18at 18:17; Start 07/30/18 at 15:45 Senna/Docusate Sodium (Senna Plus) 1 tab BID PO Last administered on 07/30/18at 21:24; Start 07/30/18 at 21:00 Docusate Sodium (Colace) 100 mg BID PO Last administered on 07/30/18at 21:24; Start 07/30/18 at 21:00 Ondansetron HCl (Zofran) 4 mg PRN Q6HRS PRN IV NAUESA, 1ST CHOICE; Start at 15:45 Enoxaparin Sodium (Lovenox 40mg Syringe) 40 mg 1X ONCE SQ ; Start 07/30/18 at 20:00; Stop 07/30/18 at 20:01; Status Cancel Heparin Sodium/ Dextrose 500 ml @ 0 mls/hr CONT PRN IV SEE I/O RECORD Last administered on 07/31/18at 10:33; Start 07/30/18 at 19:00 Heparin Sodium (Porcine) (Heparin Sodium) 2,000 unit PRN Q6HRS PRN IV FOR UFH LEVEL LESS THAN 0.2; Start 07/30/18 at 19:00 Heparin Sodium (Porcine) (Heparin Sodium) 1,000 unit PRN Q6HRS PRN IV FOR UFH LEVEL 0.2 - 0.29 Last administered on 07/31/18at 17:31; Start 07/30/18 at 19:00 Ferrous Sulfate (Feosol) 325 mg DAILY PO ; Start 07/31/18 at 09:00 Info (Anti-Coagulation Monitoring By Pharmacy) 1 each PRN DAILY PRN MC SEE COMMENTS Last administered on 07/31/18at 10:44; Start 07/31/18 at 10:45 Active Scripts Active Lovenox (Enoxaparin Sodium) 80 Mg/0.8 Ml Disp.syrin 80 Mg SQ BID 7 Days Ferrous Sulfate 325 Mg Tablet 1 Tab PO DAILY Allergies Allergies: Coded Allergies: Penicillins (Verified Allergy, Intermediate, Rash, 07/30/18) Vitals VITALS Vital Signs Date Time Temp Pulse Resp B/P (MAP) Pulse Ox O2 Delivery O2 Flow Rate FiO2 07/31/18 18:17 22 97 Room Air 07/31/18 18:00 81 149/75 (99) 07/31/18 16:00 98.2 98.2 07/31/18 04:00 2.0 Labs Labs Laboratory Tests Test 07/30/18 12:40 07/30/18 18:40 07/31/18 04:30 07/31/18 16:25 White Blood Count 9.7 x10^3/uL (4.0-11.0) 9.6 x10^3/uL (4.0-11.0) Red Blood Count 4.17 x10^6/uL (3.50-5.40) 3.67 x10^6/uL (3.50-5.40) Hemoglobin 10.8 g/dL (12.0-15.5) 9.5 g/dL (12.0-15.5) Hematocrit 33.9 % (36.0-47.0) 30.2 % (36.0-47.0) 29.4 % (36.0-47.0) Mean Corpuscular Volume 81 fL (79-100) 80 fL (79-100) Mean Corpuscular Hemoglobin 26 pg (25-35) 26 pg (25-35) Mean Corpuscular Hemoglobin Concent 32 g/dL (31-37) 32 g/dL (31-37) Red Cell Distribution Width 27.7 % (11.5-14.5) 27.3 % (11.5-14.5) Platelet Count 447 x10^3/uL (140-400) 314 x10^3/uL (140-400) Neutrophils (%) (Auto) 78 % (31-73) 77 % (31-73) Lymphocytes (%) (Auto) 12 % (24-48) 14 % (24-48) Monocytes (%) (Auto) 7 % (0-9) 8 % (0-9) Eosinophils (%) (Auto) 1 % (0-3) 0 % (0-3) Basophils (%) (Auto) 2 % (0-3) 1 % (0-3) Neutrophils # (Auto) 7.6 x10^3uL (1.8-7.7) 7.4 x10^3uL (1.8-7.7) Lymphocytes # (Auto) 1.2 x10^3/uL (1.0-4.8) 1.4 x10^3/uL (1.0-4.8) Monocytes # (Auto) 0.6 x10^3/uL (0.0-1.1) 0.8 x10^3/uL (0.0-1.1) Eosinophils # (Auto) 0.1 x10^3/uL (0.0-0.7) 0.0 x10^3/uL (0.0-0.7) Basophils # (Auto) 0.1 x10^3/uL (0.0-0.2) 0.1 x10^3/uL (0.0-0.2) Sodium Level 144 mmol/L (136-145) 140 mmol/L (136-145) Potassium Level 3.6 mmol/L (3.5-5.1) 4.0 mmol/L (3.5-5.1) Chloride Level 106 mmol/L (98-107) 104 mmol/L (98-107) Carbon Dioxide Level 27 mmol/L (21-32) 25 mmol/L (21-32) Anion Gap 11 (6-14) 11 (6-14) Blood Urea Nitrogen 8 mg/dL (7-20) 5 mg/dL (7-20) Creatinine 0.6 mg/dL (0.6-1.0) 0.6 mg/dL (0.6-1.0) Estimated GFR (Cockcroft-Gault) 104.2 104.2 BUN/Creatinine Ratio 13 (6-20) Glucose Level 92 mg/dL (70-99) 99 mg/dL (70-99) Calcium Level 9.3 mg/dL (8.5-10.1) 8.2 mg/dL (8.5-10.1) Total Bilirubin 0.4 mg/dL (0.2-1.0) Aspartate Amino Transf (AST/SGOT) 30 U/L (15-37) Alanine Aminotransferase (ALT/SGPT) 48 U/L (14-59) Alkaline Phosphatase 99 U/L (46-116) Total Protein 7.9 g/dL (6.4-8.2) Albumin 3.4 g/dL (3.4-5.0) Albumin/Globulin Ratio 0.8 (1.0-1.7) Nasal Screen MRSA (PCR) Negative (Negative) Toxic Granulation Slight Platelet Estimate Adequate (ADEQUATE) Polychromasia Slight Anisocytosis Marked Schistocytes Occ Heparin Anti-Xa Act, Unfractionated 0.25 IU/mL (0.30-0.70) Laboratory Tests Test 07/30/18 18:40 07/31/18 04:30 07/31/18 16:25 Nasal Screen MRSA (PCR) Negative (Negative) Hematocrit 30.2 % (36.0-47.0) 29.4 % (36.0-47.0) Sodium Level 140 mmol/L (136-145) Potassium Level 4.0 mmol/L (3.5-5.1) Chloride Level 104 mmol/L (98-107) Carbon Dioxide Level 25 mmol/L (21-32) Anion Gap 11 (6-14) Blood Urea Nitrogen 5 mg/dL (7-20) Creatinine 0.6 mg/dL (0.6-1.0) Estimated GFR (Cockcroft-Gault) 104.2 Glucose Level 99 mg/dL (70-99) Calcium Level 8.2 mg/dL (8.5-10.1) White Blood Count 9.6 x10^3/uL (4.0-11.0) Red Blood Count 3.67 x10^6/uL (3.50-5.40) Hemoglobin 9.5 g/dL (12.0-15.5) Mean Corpuscular Volume 80 fL (79-100) Mean Corpuscular Hemoglobin 26 pg (25-35) Mean Corpuscular Hemoglobin Concent 32 g/dL (31-37) Red Cell Distribution Width 27.3 % (11.5-14.5) Platelet Count 314 x10^3/uL (140-400) Neutrophils (%) (Auto) 77 % (31-73) Lymphocytes (%) (Auto) 14 % (24-48) Monocytes (%) (Auto) 8 % (0-9) Eosinophils (%) (Auto) 0 % (0-3) Basophils (%) (Auto) 1 % (0-3) Neutrophils # (Auto) 7.4 x10^3uL (1.8-7.7) Lymphocytes # (Auto) 1.4 x10^3/uL (1.0-4.8) Monocytes # (Auto) 0.8 x10^3/uL (0.0-1.1) Eosinophils # (Auto) 0.0 x10^3/uL (0.0-0.7) Basophils # (Auto) 0.1 x10^3/uL (0.0-0.2) Toxic Granulation Slight Platelet Estimate Adequate (ADEQUATE) Polychromasia Slight Anisocytosis Marked Schistocytes Occ Heparin Anti-Xa Act, Unfractionated 0.25 IU/mL (0.30-0.70) PAULA ROBLERO MD Jul 31, 2018 18:53
[2018-08-01] VITALS (19 sets, daily range): BP systolic 109–149; BP diastolic 59–96
[2018-08-01] MEDS: IV NORMAL SALINE 1000ML BAG 1,000 ML IV SCH ×3 (05:29→17:35)
[2018-08-01] MEDS: oxyCODONE/APAP 5/325 1 TAB TABLET PO PRN ×3 (05:30→22:06)
[2018-08-01] MEDS: HEPARIN 25,000UTS/500ML PREMIX 500 ML IV PRN (05:31)
[2018-08-01 06:04] LABS: HEMATOCRIT 30.9 % (36.0-47.0); HEMOGLOBIN 9.9 g/dL (12.0-15.5); RED BLOOD COUNT 3.84 x10^6/uL (3.50-5.40); RED CELL DISTRIBUTION WIDTH 27.6 % (11.5-14.5); WHITE BLOOD COUNT 7.5 x10^3/uL (4.0-11.0)
[2018-08-01] MEDS: FERROUS SULFATE 325 MG TABLET. PO SCH (08:53)
[2018-08-01] MEDS: SENNOSIDES/DOCUSATE 8.6/50MG TABLET. PO SCH ×2 (08:53→21:01)
[2018-08-01] MEDS: DOCUSATE SODIUM 100 MG CAPSULE. PO SCH ×2 (08:53→21:01)
[2018-08-01] MEDS: ANTI-COAG MONITOR BY PHARMACY. MC PRN (09:43)
[2018-08-01] MEDS: HYDROmorphone 2 MG/ML VIAL IV PRN (13:51)
--- NOTE | 2018-08-01 14:20 | PDOC ---
PROGRESS NOTES Chief Complaint Chief Complaint 1. Extensive left leg deep venous thrombosis. 2. hx uterine fibroids, extensive post SU 07/31/2018 3. Left leg swelling - secondary to DVT, treat with lovenox, vascular surgery consulted, lack of left iliac vein precludes possibly of PE from left side 4. H/O DVT extensive left leg-started on Xarelto April or May 2018, sent home from ED with xarelto 15mg BID for 7 days and 20mg thereafter. Continued by her PCP. DRVVT negative, B2 neg, INR, PT, aPTT all WNL. 5. 5. 5 Protein C and S activity WNL, anticardiolipin not elevated. She was on Provera for recurrent menorrhagia. 6. Large fibroid uterus - scheduled for [facility] on 07/31/18. Uterine bleeding/ menorrhagia - catarino menopausal. 7. H/o Precipitous drop in hemoglobin - PLAN transition from heparin to lovenox may be transferred to third floor when bed available. continue supportive measures History of Present Illness History of Present Illness Patient laying in bed in no apparent distress. Patient underwent total abdominal hysterectomy with no complications. All concerns address to the best of my abilities Vitals Vitals Vital Signs Date Time Temp Pulse Resp B/P (MAP) Pulse Ox O2 Delivery O2 Flow Rate FiO2 08/01/18 14:00 79 14 141/92 (108) 97 Room Air 08/01/18 12:00 98.6 98.6 08/01/18 06:30 2.0 Physical Exam General: Alert, Oriented X3, Cooperative, mild distress Lungs: Clear Abdomen: Soft Extremities: No clubbing, No cyanosis Skin: No rashes, No breakdown, No significant lesion Labs LABS Laboratory Tests Test 07/31/18 16:25 07/31/18 23:10 08/01/18 05:45 White Blood Count 9.6 x10^3/uL (4.0-11.0) 7.5 x10^3/uL (4.0-11.0) Red Blood Count 3.67 x10^6/uL (3.50-5.40) 3.84 x10^6/uL (3.50-5.40) Hemoglobin 9.5 g/dL (12.0-15.5) 9.9 g/dL (12.0-15.5) Hematocrit 29.4 % (36.0-47.0) 30.9 % (36.0-47.0) Mean Corpuscular Volume 80 fL (79-100) 81 fL (79-100) Mean Corpuscular Hemoglobin 26 pg (25-35) 26 pg (25-35) Mean Corpuscular Hemoglobin Concent 32 g/dL (31-37) 32 g/dL (31-37) Red Cell Distribution Width 27.3 % (11.5-14.5) 27.6 % (11.5-14.5) Platelet Count 314 x10^3/uL (140-400) 332 x10^3/uL (140-400) Neutrophils (%) (Auto) 77 % (31-73) Lymphocytes (%) (Auto) 14 % (24-48) Monocytes (%) (Auto) 8 % (0-9) Eosinophils (%) (Auto) 0 % (0-3) Basophils (%) (Auto) 1 % (0-3) Neutrophils # (Auto) 7.4 x10^3uL (1.8-7.7) Lymphocytes # (Auto) 1.4 x10^3/uL (1.0-4.8) Monocytes # (Auto) 0.8 x10^3/uL (0.0-1.1) Eosinophils # (Auto) 0.0 x10^3/uL (0.0-0.7) Basophils # (Auto) 0.1 x10^3/uL (0.0-0.2) Toxic Granulation Slight Platelet Estimate Adequate (ADEQUATE) Polychromasia Slight Anisocytosis Marked Schistocytes Occ Heparin Anti-Xa Act, Unfractionated 0.25 IU/mL (0.30-0.70) 0.37 IU/mL (0.30-0.70) 0.47 IU/mL (0.30-0.70) Iron Level 18 ug/dL (50-170) Total Iron Binding Capacity 271 ug/dL (250-450) Iron Saturation 7 % (15-34) Ferritin 70 ng/mL (8-252) Comment Review of Relevant I have reviewed the following items anton (where applicable) has been applied. Labs Laboratory Tests Test 07/30/18 18:40 07/31/18 04:30 07/31/18 16:25 2/27/19 23:10 Nasal Screen MRSA (PCR) Negative (Negative) Hematocrit 30.2 % (36.0-47.0) 29.4 % (36.0-47.0) Sodium Level 140 mmol/L (136-145) Potassium Level 4.0 mmol/L (3.5-5.1) Chloride Level 104 mmol/L (98-107) Carbon Dioxide Level 25 mmol/L (21-32) Anion Gap 11 (6-14) Blood Urea Nitrogen 5 mg/dL (7-20) Creatinine 0.6 mg/dL (0.6-1.0) Estimated GFR (Cockcroft-Gault) 104.2 Glucose Level 99 mg/dL (70-99) Calcium Level 8.2 mg/dL (8.5-10.1) White Blood Count 9.6 x10^3/uL (4.0-11.0) Red Blood Count 3.67 x10^6/uL (3.50-5.40) Hemoglobin 9.5 g/dL (12.0-15.5) Mean Corpuscular Volume 80 fL (79-100) Mean Corpuscular Hemoglobin 26 pg (25-35) Mean Corpuscular Hemoglobin Concent 32 g/dL (31-37) Red Cell Distribution Width 27.3 % (11.5-14.5) Platelet Count 314 x10^3/uL (140-400) Neutrophils (%) (Auto) 77 % (31-73) Lymphocytes (%) (Auto) 14 % (24-48) Monocytes (%) (Auto) 8 % (0-9) Eosinophils (%) (Auto) 0 % (0-3) Basophils (%) (Auto) 1 % (0-3) Neutrophils # (Auto) 7.4 x10^3uL (1.8-7.7) Lymphocytes # (Auto) 1.4 x10^3/uL (1.0-4.8) Monocytes # (Auto) 0.8 x10^3/uL (0.0-1.1) Eosinophils # (Auto) 0.0 x10^3/uL (0.0-0.7) Basophils # (Auto) 0.1 x10^3/uL (0.0-0.2) Toxic Granulation Slight Platelet Estimate Adequate (ADEQUATE) Polychromasia Slight Anisocytosis Marked Schistocytes Occ Heparin Anti-Xa Act, Unfractionated 0.25 IU/mL (0.30-0.70) 0.37 IU/mL (0.30-0.70) Test 08/01/18 05:45 White Blood Count 7.5 x10^3/uL (4.0-11.0) Red Blood Count 3.84 x10^6/uL (3.50-5.40) Hemoglobin 9.9 g/dL (12.0-15.5) Hematocrit 30.9 % (36.0-47.0) Mean Corpuscular Volume 81 fL (79-100) Mean Corpuscular Hemoglobin 26 pg (25-35) Mean Corpuscular Hemoglobin Concent 32 g/dL (31-37) Red Cell Distribution Width 27.6 % (11.5-14.5) Platelet Count 332 x10^3/uL (140-400) Heparin Anti-Xa Act, Unfractionated 0.47 IU/mL (0.30-0.70) Iron Level 18 ug/dL (50-170) Total Iron Binding Capacity 271 ug/dL (250-450) Iron Saturation 7 % (15-34) Ferritin 70 ng/mL (8-252) Laboratory Tests Test 07/31/18 16:25 07/31/18 23:10 08/01/18 05:45 White Blood Count 9.6 x10^3/uL (4.0-11.0) 7.5 x10^3/uL (4.0-11.0) Red Blood Count 3.67 x10^6/uL (3.50-5.40) 3.84 x10^6/uL (3.50-5.40) Hemoglobin 9.5 g/dL (12.0-15.5) 9.9 g/dL (12.0-15.5) Hematocrit 29.4 % (36.0-47.0) 30.9 % (36.0-47.0) Mean Corpuscular Volume 80 fL (79-100) 81 fL (79-100) Mean Corpuscular Hemoglobin 26 pg (25-35) 26 pg (25-35) Mean Corpuscular Hemoglobin Concent 32 g/dL (31-37) 32 g/dL (31-37) Red Cell Distribution Width 27.3 % (11.5-14.5) 27.6 % (11.5-14.5) Platelet Count 314 x10^3/uL (140-400) 332 x10^3/uL (140-400) Neutrophils (%) (Auto) 77 % (31-73) Lymphocytes (%) (Auto) 14 % (24-48) Monocytes (%) (Auto) 8 % (0-9) Eosinophils (%) (Auto) 0 % (0-3) Basophils (%) (Auto) 1 % (0-3) Neutrophils # (Auto) 7.4 x10^3uL (1.8-7.7) Lymphocytes # (Auto) 1.4 x10^3/uL (1.0-4.8) Monocytes # (Auto) 0.8 x10^3/uL (0.0-1.1) Eosinophils # (Auto) 0.0 x10^3/uL (0.0-0.7) Basophils # (Auto) 0.1 x10^3/uL (0.0-0.2) Toxic Granulation Slight Platelet Estimate Adequate (ADEQUATE) Polychromasia Slight Anisocytosis Marked Schistocytes Occ Heparin Anti-Xa Act, Unfractionated 0.25 IU/mL (0.30-0.70) 0.37 IU/mL (0.30-0.70) 0.47 IU/mL (0.30-0.70) Iron Level 18 ug/dL (50-170) Total Iron Binding Capacity 271 ug/dL (250-450) Iron Saturation 7 % (15-34) Ferritin 70 ng/mL (8-252) Medications Current Medications Prochlorperazine Edisylate (Compazine) 5 mg PACU PRN PRN IV NAUSEA, MRX1 Last administered on 07/30/18at 16:28; Start 07/30/18 at 07:00; Stop 07/31/18 at 06:59 ; Status DC Hydromorphone HCl (Dilaudid) 0.5 mg PRN Q10MIN PRN IV SEV PAIN, Second choice Last administered on 07/30/18at 17:52; Start 07/30/18 at 07:00; Stop 07/31/18 at 06:59; Status DC Lidocaine HCl (Xylocaine-Mpf 1% 2ml Vial) 2 ml PRN 1X PRN ID IV START; Start at 07:00; Stop 07/31/18 at 06:59; Status DC Ringer's Solution 1,000 ml @ 30 mls/hr Q24H IV Last administered on 07/30/18at 13:02; Start 07/30/18 at 07:00; Stop 07/30/18 at 18:59; Status DC Morphine Sulfate (Morphine Sulfate) 1 mg PRN Q10MIN PRN IV SEVERE PAIN Last administered on 07/30/18at 17:13; Start 07/30/18 at 07:00; Stop 07/31/18 at 06:59 ; Status DC Fentanyl Citrate (Fentanyl 2ml Vial) 50 mcg PRN Q5MIN PRN IV MODERATE TO SEVERE PAIN Last administered on 07/30/18at 16:29; Start 07/30/18 at 07:00; Stop 07/31/18 at 06:59; Status DC Fentanyl Citrate (Fentanyl 2ml Vial) 25 mcg PRN Q5MIN PRN IV MILD PAIN; Start 07/30/18 at 07:00; Stop 07/31/18 at 06:59; Status DC Ondansetron HCl (Zofran) 4 mg PRN Q6HRS PRN IV NAUSEA/VOMITING; Start 07/30/18 at 07:00; Stop 07/31/18 at 06:59; Status DC Glycopyrrolate (Robinul) 1 mg 1X ONCE IV ; Start 07/30/18 at 08:30; Stop at 08:31; Status DC Cefazolin Sodium 50 ml @ 100 mls/hr 1X PREOP PRN IV SEE COMMENTS; Start at 06:00; Stop 07/31/18 at 18:00; Status UNV Clindamycin Phosphate 50 ml @ 100 mls/hr 1X ONCE IV Last administered on 07/30at 14:04; Start 07/30/18 at 13:00; Stop 07/30/18 at 13:29; Status DC Propofol 20 ml @ As Directed STK-MED ONCE IV ; Start 07/30/18 at 13:03; Stop at 13:04; Status DC Dexamethasone Sodium Phosphate (Decadron) 20 mg STK-MED ONCE .ROUTE ; Start at 13:03; Stop 07/30/18 at 13:04; Status DC Lidocaine HCl (Lidocaine Pf 2% Vial) 5 ml STK-MED ONCE .ROUTE ; Start 07/30/18 at 13:03; Stop 07/30/18 at 13:04; Status DC Ondansetron HCl (Zofran) 4 mg STK-MED ONCE .ROUTE ; Start 07/30/18 at 13:03; Stop 07/30/18 at 13:04; Status DC Rocuronium Wilkinson (Zemuron) 50 mg STK-MED ONCE .ROUTE ; Start 07/30/18 at 13:03 ; Stop 07/30/18 at 13:04; Status DC Fentanyl Citrate (Fentanyl 2ml Vial) 100 mcg STK-MED ONCE .ROUTE ; Start at 13:03; Stop 07/30/18 at 13:04; Status DC Neostigmine Methylsulfate (Bloxiverz) 10 mg STK-MED ONCE .ROUTE ; Start at 15:17; Stop 07/30/18 at 15:18; Status DC Ketorolac Tromethamine (Toradol For Or Only) 30 mg STK-MED ONCE INJ ; Start at 15:19; Stop 07/30/18 at 15:20; Status DC Sevoflurane (Ultane) 60 ml STK-MED ONCE IH ; Start 07/30/18 at 15:19; Stop 07/30 at 15:20; Status DC Fentanyl Citrate (Fentanyl 2ml Vial) 100 mcg STK-MED ONCE .ROUTE ; Start at 15:25; Stop 07/30/18 at 15:26; Status DC Clindamycin Phosphate 50 ml @ 100 mls/hr Q8H IV Last administered on at 14:38; Start 07/30/18 at 22:00; Stop 07/31/18 at 14:29; Status DC Al Hydroxide/Mg Hydroxide (Mylanta Plus Xs) 30 ml PRN Q3HRS PRN PO HEARTBURN / GAS; Start 07/30/18 at 15:45 Calcium Carbonate/ Glycine (Tums) 500 mg PRN Q3HRS PRN PO INDIGESTION; Start at 15:45 Simethicone (Gas-X) 80 mg PRN AFTMEALHC PRN PO GAS / BLOATING; Start 07/30/18 at 15:45 Diphenhydramine HCl (Benadryl) 25 mg PRN Q6HRS PRN PO ITCHING; Start 07/30/18 at 15:45 Diphenhydramine HCl (Benadryl) 25 mg PRN Q6HRS PRN IV ITCHING; Start 07/30/18 at 15:45 Zolpidem Tartrate (Ambien) 5 mg PRN QHS PRN PO INSOMNIA Last administered on at 21:16; Start 07/30/18 at 15:45 Naloxone HCl (Narcan) 0.1 mg PRN Q2MIN PRN IV SEE COMMENTS; Start 07/30/18 at 15:45 Sodium Chloride (Normal Saline Flush) 3 ml QSHIFT PRN IV AFTER MEDS AND BLOOD DRAWS; Start 07/30/18 at 15:45 Sodium Chloride 1,000 ml @ 100 mls/hr Q10H IV Last administered on 08/01/18at 07:57; Start 07/30/18 at 15:35 Hydromorphone HCl (Dilaudid) 0.2 mg PRN Q1HR PRN IV PAIN Last administered on at 13:51; Start 07/30/18 at 15:45 Oxycodone/ Acetaminophen (Percocet 5/325) 1 tab PRN Q4HRS PRN PO MILD PAIN, 1ST CHOICE Last administered on 08/01/18at 05:30; Start 07/30/18 at 15:45 Senna/Docusate Sodium (Senna Plus) 1 tab BID PO Last administered on 08/01/18at 08:53; Start 07/30/18 at 21:00 Docusate Sodium (Colace) 100 mg BID PO Last administered on 08/01/18at 08:53; Start 07/30/18 at 21:00 Ondansetron HCl (Zofran) 4 mg PRN Q6HRS PRN IV NAUESA, 1ST CHOICE; Start at 15:45 Enoxaparin Sodium (Lovenox 40mg Syringe) 40 mg 1X ONCE SQ ; Start 07/30/18 at 20:00; Stop 07/30/18 at 20:01; Status Cancel Heparin Sodium/ Dextrose 500 ml @ 0 mls/hr CONT PRN IV SEE I/O RECORD Last administered on 08/01/18at 05:31; Start 07/30/18 at 19:00 Heparin Sodium (Porcine) (Heparin Sodium) 2,000 unit PRN Q6HRS PRN IV FOR UFH LEVEL LESS THAN 0.2; Start 07/30/18 at 19:00 Heparin Sodium (Porcine) (Heparin Sodium) 1,000 unit PRN Q6HRS PRN IV FOR UFH LEVEL 0.2 - 0.29 Last administered on 07/31/18at 17:31; Start 07/30/18 at 19:00 Ferrous Sulfate (Feosol) 325 mg DAILY PO Last administered on 08/01/18 08:53; Start 07/31/18 at 09:00 Info (Anti-Coagulation Monitoring By Pharmacy) 1 each PRN DAILY PRN MC SEE COMMENTS Last administered on 08/01/18 09:43; Start 07/31/18 at 10:45 Active Scripts Active Lovenox (Enoxaparin Sodium) 80 Mg/0.8 Ml Disp.syrin 80 Mg SQ BID 7 Days Ferrous Sulfate 325 Mg Tablet 1 Tab PO DAILY Vitals/I & O Vital Sign - Last 24 Hours 07/31/18 07/31/18 07/31/18 07/31/18 15:00 16:00 16:00 16:24 Temp 98.2 98.2 Pulse 81 Resp 15 18 B/P (MAP) 148/66 (93) Pulse Ox 97 97 O2 Delivery Room Air Room Air Room Air Room Air 07/31/18 07/31/18 07/31/18 07/31/18 17:00 18:00 18:17 19:00 Pulse 102 81 85 Resp 19 22 22 19 B/P (MAP) 124/60 (81) 149/75 (99) 120/75 (90) Pulse Ox 94 97 97 95 O2 Delivery Room Air Room Air Room Air Room Air 07/31/18 07/31/18 07/31/18 07/31/18 19:39 20:00 20:00 20:09 Temp 98.6 98.6 Pulse 86 Resp 15 18 15 B/P (MAP) 152/73 (99) Pulse Ox 97 95 95 O2 Delivery Room Air Room Air Room Air Room Air 07/31/18 07/31/18 07/31/18 07/31/18 21:00 21:17 22:00 23:00 Pulse 85 82 83 Resp 19 15 15 15 B/P (MAP) 159/101 (120) 132/70 (90) 122/63 (82) Pulse Ox 95 97 95 95 O2 Delivery Room Air Room Air Room Air Room Air O2 Flow Rate 2.0 07/31/18 08/01/18 08/01/18 08/01/18 23:59 00:01 01:00 02:00 Temp 99.1 99.1 Pulse 81 70 76 Resp 12 14 15 B/P (MAP) 110/59 (76) 117/62 (80) 110/59 (76) Pulse Ox 95 96 96 O2 Delivery Room Air Room Air Room Air Room Air 08/01/18 08/01/18 08/01/18 08/01/18 03:00 04:00 04:00 05:00 Temp 98.2 98.2 Pulse 67 72 67 Resp 15 18 13 B/P (MAP) 132/70 (90) 109/63 (78) 110/70 (83) Pulse Ox 96 97 97 O2 Delivery Room Air Room Air Room Air Room Air 08/01/18 08/01/18 08/01/18 08/01/18 05:30 06:00 06:30 07:00 Pulse 72 70 Resp 14 11 12 11 B/P (MAP) 135/76 (95) 111/70 (84) Pulse Ox 97 96 96 96 O2 Delivery Room Air Room Air Room Air Room Air O2 Flow Rate 2.0 08/01/18 08/01/18 08/01/18 08/01/18 08:00 08:00 09:00 10:00 Temp 98.2 98.2 Pulse 85 90 86 Resp 18 20 22 B/P (MAP) 149/90 (109) 144/96 (112) 142/87 (105) Pulse Ox 97 98 97 O2 Delivery Room Air Room Air Room Air Room Air 08/01/18 08/01/18 08/01/18 08/01/18 11:00 12:00 12:00 13:00 Temp 98.6 98.6 Pulse 89 94 90 Resp 16 13 18 B/P (MAP) 135/82 (99) 142/84 (103) 142/82 (102) Pulse Ox 96 97 97 O2 Delivery Room Air Room Air Room Air Room Air 08/01/18 08/01/18 13:51 14:00 Pulse 79 Resp 18 14 B/P (MAP) 141/92 (108) Pulse Ox 97 97 O2 Delivery Room Air Room Air Intake and Output 07/31/18 07/31/18 08/01/18 15:00 23:00 07:00 Intake Total 2492.95 ml 3526 ml Output Total 730 ml 1140 ml 840 ml Balance -730 ml 1352.95 ml 2686 ml NOHEMY ALDANA MD Aug 01, 2018 14:20
--- NOTE | 2018-08-01 14:59 | NUR ---
Talked to Dr. Soler. He stated it was ok to discontinue Heparin and begin SubQ Lovenox.
--- NOTE | 2018-08-01 17:22 | PDOC ---
Provider Note Provider Note Doing well VSS Dressing CDI FU in AM JOHANNA SOLARES MD Aug 01, 2018 17:22
[2018-08-02] MEDS: IV NORMAL SALINE 1000ML BAG 1,000 ML IV SCH ×3 (03:35→21:24)
[2018-08-02] MEDS: oxyCODONE/APAP 5/325 1 TAB TABLET PO PRN ×2 (05:39→14:42)
[2018-08-02 06:27] VITALS: BP 114/65
[2018-08-02 08:00] VITALS: BP 130/78
[2018-08-02] MEDS: SENNOSIDES/DOCUSATE 8.6/50MG TABLET. PO SCH ×2 (08:22→21:00)
[2018-08-02] MEDS: FERROUS SULFATE 325 MG TABLET. PO SCH (08:22)
[2018-08-02] MEDS: DOCUSATE SODIUM 100 MG CAPSULE. PO SCH ×2 (08:22→21:18)
[2018-08-02] MEDS: SIMETHICONE 80 MG TAB.CHEW PO PRN ×2 (08:22→19:20)
--- NOTE | 2018-08-02 09:30 | PDOC ---
SUBJECTIVE Subjective S: swelling improving O: Gen: NAD, resting in chair, mom w/ her today Psych: pleasant mood and affect Ext: LLE swelling decreasing, has stockings on Labs: wbc 7.5, Hb 9.9, plt 332 ferr 70, tibc nl, Fe sat and Fe low Assessment and Plan: She is a 53-year-old female with a history of left lower extremity DVT in April 2018, improved with anticoagulation though anticoagulation had to be stopped 05 July due to menorrhagia from fibroid bleeding, required transfusion, she had hysterectomy sunday and anticoagulation has been restarted postoperatively, now off heparin gtt. IVC filter off anticoagulation recently not needed due to lack of patent left iliac vein. Left lower extremity DVT: Would treat for another 3 months from now and then recheck ultrasound, this can be done through our clinic as needed, she plans to transition back to Xarelto soon, ok for 15 mg bid x 3 wks f/b 20 mg daily (or 20 mg daily if body fitter concerned for post op bleeding) dose, recommend avoiding exogenous hormones Anemia: she is on po Fe daily, would cont x 3 mos and recheck labs Left lower extremity swelling: Vascular surgery has seen her and will see her in follow-up in October, and recommend leg elevation and [place] hose with compression stockings upon discharge Thrombosis worsening off anticoagulation: Could consider hypercoagulable workup , she has had a hysterectomy, would ensure cancer screening up to date as well as an outpatient Pulmonary nodule on chest CT: Recommended 6 month follow-up which will be due January 2019, can be done through primary care as needed dispo: we will offer her f/u upon d/c Thank you kindly, and please don't hesitate to call with any further questions. OBJECTIVE Vital Signs Vital Signs Date Time Temp Pulse Resp B/P (MAP) Pulse Ox O2 Delivery O2 Flow Rate FiO2 08/02/18 07:00 21 95 Room Air 08/02/18 06:27 98.6 79 16 114/65 (81) 96 Room Air 98.6 08/01/18 23:01 98.5 91 16 137/91 (106) 96 Room Air 98.5 08/01/18 19:52 Room Air 08/01/18 17:30 98.2 92 117/88 (98) 99 Room Air 98.2 08/01/18 17:30 Room Air 08/01/18 16:56 22 97 Room Air 08/01/18 16:00 98.2 90 21 119/89 (99) 97 Room Air 98.2 08/01/18 15:00 98 17 117/64 (81) 97 Room Air 08/01/18 14:30 16 98 Room Air 08/01/18 14:00 79 14 141/92 (108) 97 Room Air 08/01/18 13:51 18 97 Room Air 08/01/18 13:00 90 18 142/82 (102) 97 Room Air 08/01/18 12:00 Room Air 08/01/18 12:00 98.6 94 13 142/84 (103) 97 Room Air 98.6 08/01/18 11:00 89 16 135/82 (99) 96 Room Air 08/01/18 10:00 86 22 142/87 (105) 97 Room Air I & O Intake and Output 08/02/18 07:00 Intake Total 1019 ml Output Total 3350 ml Balance -2331 ml Intake Oral 770 ml IV Total 249 ml Output Urine Total 3350 ml PAULA BELL MD Aug 02, 2018 09:30
--- NOTE | 2018-08-02 13:17 | PDOC ---
SURGICAL PROGRESS NOTE Subjective Pt. feeling well. SHe has nausea. Pain controlled. Vital Signs Vital Signs Date Time Temp Pulse Resp B/P (MAP) Pulse Ox O2 Delivery O2 Flow Rate FiO2 08/02/18 08:00 98.0 94 16 130/78 (95) 94 Room Air 98.0 I&O Intake and Output 08/02/18 07:00 Intake Total 1019 ml Output Total 3350 ml Balance -2331 ml Intake Oral 770 ml IV Total 249 ml Output Urine Total 3350 ml PATIENT HAS A DAVID: No General: Alert, Oriented X3, Cooperative HEENT: Atraumatic Lungs: Clear to auscultation Heart: Regular rate Abdomen: Normal bowel sounds, Soft, No tenderness, No masses, Other (Wound vac in place and dry.) Psych/Mental Status: Mental status NL Labs Laboratory Tests Test 07/31/18 16:25 07/31/18 23:10 08/01/18 05:45 White Blood Count 9.6 x10^3/uL (4.0-11.0) 7.5 x10^3/uL (4.0-11.0) Red Blood Count 3.67 x10^6/uL (3.50-5.40) 3.84 x10^6/uL (3.50-5.40) Hemoglobin 9.5 g/dL (12.0-15.5) 9.9 g/dL (12.0-15.5) Hematocrit 29.4 % (36.0-47.0) 30.9 % (36.0-47.0) Mean Corpuscular Volume 80 fL (79-100) 81 fL (79-100) Mean Corpuscular Hemoglobin 26 pg (25-35) 26 pg (25-35) Mean Corpuscular Hemoglobin Concent 32 g/dL (31-37) 32 g/dL (31-37) Red Cell Distribution Width 27.3 % (11.5-14.5) 27.6 % (11.5-14.5) Platelet Count 314 x10^3/uL (140-400) 332 x10^3/uL (140-400) Neutrophils (%) (Auto) 77 % (31-73) Lymphocytes (%) (Auto) 14 % (24-48) Monocytes (%) (Auto) 8 % (0-9) Eosinophils (%) (Auto) 0 % (0-3) Basophils (%) (Auto) 1 % (0-3) Neutrophils # (Auto) 7.4 x10^3uL (1.8-7.7) Lymphocytes # (Auto) 1.4 x10^3/uL (1.0-4.8) Monocytes # (Auto) 0.8 x10^3/uL (0.0-1.1) Eosinophils # (Auto) 0.0 x10^3/uL (0.0-0.7) Basophils # (Auto) 0.1 x10^3/uL (0.0-0.2) Toxic Granulation Slight Platelet Estimate Adequate (ADEQUATE) Polychromasia Slight Anisocytosis Marked Schistocytes Occ Heparin Anti-Xa Act, Unfractionated 0.25 IU/mL (0.30-0.70) 0.37 IU/mL (0.30-0.70) 0.47 IU/mL (0.30-0.70) Iron Level 18 ug/dL (50-170) Total Iron Binding Capacity 271 ug/dL (250-450) Iron Saturation 7 % (15-34) Ferritin 70 ng/mL (8-252) Assessment/Plan A: POD#3 s/p SU & BSO H/o blood clots: Heparin for full anticoagulation P: Continue post op care. Anticipate d/c home Sunday. YUKI TEIXEIRA Jr, MD Aug 02, 2018 13:17
[2018-08-02] MEDS ORDERED: oxyCODONE/APAP 5/325 1 TAB TABLET PO PRN (13:45)
[2018-08-02] MEDS ORDERED: BISACODYL 10 MG SUPP.RECT. PR ONE (13:45)
--- NOTE | 2018-08-02 15:52 | PDOC ---
PROGRESS NOTES Chief Complaint Chief Complaint 1. Extensive left leg deep venous thrombosis. 2. hx uterine fibroids, extensive post SU 07/31/2018 3. Left leg swelling - secondary to DVT, treat with lovenox, vascular surgery consulted, lack of left iliac vein precludes possibly of PE from left side 4. H/O DVT extensive left leg-started on Xarelto April or May 2018, sent home from ED with xarelto 15mg BID for 7 days and 20mg thereafter. 6. Large fibroid uterus - s/p Hys 7. H/o Precipitous drop in hemoglobin - 8 ileus History of Present Illness History of Present Illness Patient laying in bed in no apparent distress. Patient underwent total abdominal hysterectomy with no complications. All concerns address to the best of my abilities Vitals Vitals Vital Signs Date Time Temp Pulse Resp B/P (MAP) Pulse Ox O2 Delivery O2 Flow Rate FiO2 08/02/18 14:42 20 Room Air 08/02/18 08:00 98.0 94 130/78 (95) 94 98.0 Physical Exam General: Alert, Oriented X3, Cooperative Heart: Regular rate Lungs: Clear Abdomen: Normal bowel sounds, Soft, No tenderness, No masses, Other (absent bowel sounds) Extremities: No clubbing, No cyanosis Skin: No rashes, No breakdown, No significant lesion Review of Systems Review of Systems no n.v.d no stool Comment Review of Relevant I have reviewed the following items anton (where applicable) has been applied. Labs Laboratory Tests Test 07/31/18 16:25 07/31/18 23:10 08/01/18 05:45 White Blood Count 9.6 x10^3/uL (4.0-11.0) 7.5 x10^3/uL (4.0-11.0) Red Blood Count 3.67 x10^6/uL (3.50-5.40) 3.84 x10^6/uL (3.50-5.40) Hemoglobin 9.5 g/dL (12.0-15.5) 9.9 g/dL (12.0-15.5) Hematocrit 29.4 % (36.0-47.0) 30.9 % (36.0-47.0) Mean Corpuscular Volume 80 fL (79-100) 81 fL (79-100) Mean Corpuscular Hemoglobin 26 pg (25-35) 26 pg (25-35) Mean Corpuscular Hemoglobin Concent 32 g/dL (31-37) 32 g/dL (31-37) Red Cell Distribution Width 27.3 % (11.5-14.5) 27.6 % (11.5-14.5) Platelet Count 314 x10^3/uL (140-400) 332 x10^3/uL (140-400) Neutrophils (%) (Auto) 77 % (31-73) Lymphocytes (%) (Auto) 14 % (24-48) Monocytes (%) (Auto) 8 % (0-9) Eosinophils (%) (Auto) 0 % (0-3) Basophils (%) (Auto) 1 % (0-3) Neutrophils # (Auto) 7.4 x10^3uL (1.8-7.7) Lymphocytes # (Auto) 1.4 x10^3/uL (1.0-4.8) Monocytes # (Auto) 0.8 x10^3/uL (0.0-1.1) Eosinophils # (Auto) 0.0 x10^3/uL (0.0-0.7) Basophils # (Auto) 0.1 x10^3/uL (0.0-0.2) Toxic Granulation Slight Platelet Estimate Adequate (ADEQUATE) Polychromasia Slight Anisocytosis Marked Schistocytes Occ Heparin Anti-Xa Act, Unfractionated 0.25 IU/mL (0.30-0.70) 0.37 IU/mL (0.30-0.70) 0.47 IU/mL (0.30-0.70) Iron Level 18 ug/dL (50-170) Total Iron Binding Capacity 271 ug/dL (250-450) Iron Saturation 7 % (15-34) Ferritin 70 ng/mL (8-252) Medications Current Medications Prochlorperazine Edisylate (Compazine) 5 mg PACU PRN PRN IV NAUSEA, MRX1 Last administered on 07/30/18at 16:28; Start 07/30/18 at 07:00; Stop 07/31/18 at 06:59 ; Status DC Hydromorphone HCl (Dilaudid) 0.5 mg PRN Q10MIN PRN IV SEV PAIN, Second choice Last administered on 07/30/18at 17:52; Start 07/30/18 at 07:00; Stop 07/31/18 at 06:59; Status DC Lidocaine HCl (Xylocaine-Mpf 1% 2ml Vial) 2 ml PRN 1X PRN ID IV START; Start at 07:00; Stop 07/31/18 at 06:59; Status DC Ringer's Solution 1,000 ml @ 30 mls/hr Q24H IV Last administered on 07/30/18at 13:02; Start 07/30/18 at 07:00; Stop 07/30/18 at 18:59; Status DC Morphine Sulfate (Morphine Sulfate) 1 mg PRN Q10MIN PRN IV SEVERE PAIN Last administered on 07/30/18at 17:13; Start 07/30/18 at 07:00; Stop 07/31/18 at 06:59 ; Status DC Fentanyl Citrate (Fentanyl 2ml Vial) 50 mcg PRN Q5MIN PRN IV MODERATE TO SEVERE PAIN Last administered on 07/30/18at 16:29; Start 07/30/18 at 07:00; Stop 07/31/18 at 06:59; Status DC Fentanyl Citrate (Fentanyl 2ml Vial) 25 mcg PRN Q5MIN PRN IV MILD PAIN; Start 07/30/18 at 07:00; Stop 07/31/18 at 06:59; Status DC Ondansetron HCl (Zofran) 4 mg PRN Q6HRS PRN IV NAUSEA/VOMITING; Start 07/30/18 at 07:00; Stop 07/31/18 at 06:59; Status DC Glycopyrrolate (Robinul) 1 mg 1X ONCE IV ; Start 07/30/18 at 08:30; Stop at 08:31; Status DC Cefazolin Sodium 50 ml @ 100 mls/hr 1X PREOP PRN IV SEE COMMENTS; Start at 06:00; Stop 07/31/18 at 18:00; Status UNV Clindamycin Phosphate 50 ml @ 100 mls/hr 1X ONCE IV Last administered on 07/30at 14:04; Start 07/30/18 at 13:00; Stop 07/30/18 at 13:29; Status DC Propofol 20 ml @ As Directed STK-MED ONCE IV ; Start 07/30/18 at 13:03; Stop at 13:04; Status DC Dexamethasone Sodium Phosphate (Decadron) 20 mg STK-MED ONCE .ROUTE ; Start at 13:03; Stop 07/30/18 at 13:04; Status DC Lidocaine HCl (Lidocaine Pf 2% Vial) 5 ml STK-MED ONCE .ROUTE ; Start 07/30/18 at 13:03; Stop 07/30/18 at 13:04; Status DC Ondansetron HCl (Zofran) 4 mg STK-MED ONCE .ROUTE ; Start 07/30/18 at 13:03; Stop 07/30/18 at 13:04; Status DC Rocuronium Palmetto (Zemuron) 50 mg STK-MED ONCE .ROUTE ; Start 07/30/18 at 13:03 ; Stop 07/30/18 at 13:04; Status DC Fentanyl Citrate (Fentanyl 2ml Vial) 100 mcg STK-MED ONCE .ROUTE ; Start at 13:03; Stop 07/30/18 at 13:04; Status DC Neostigmine Methylsulfate (Bloxiverz) 10 mg STK-MED ONCE .ROUTE ; Start at 15:17; Stop 07/30/18 at 15:18; Status DC Ketorolac Tromethamine (Toradol For Or Only) 30 mg STK-MED ONCE INJ ; Start at 15:19; Stop 07/30/18 at 15:20; Status DC Sevoflurane (Ultane) 60 ml STK-MED ONCE IH ; Start 07/30/18 at 15:19; Stop 07/30 at 15:20; Status DC Fentanyl Citrate (Fentanyl 2ml Vial) 100 mcg STK-MED ONCE .ROUTE ; Start at 15:25; Stop 07/30/18 at 15:26; Status DC Clindamycin Phosphate 50 ml @ 100 mls/hr Q8H IV Last administered on at 14:38; Start 07/30/18 at 22:00; Stop 07/31/18 at 14:29; Status DC Al Hydroxide/Mg Hydroxide (Mylanta Plus Xs) 30 ml PRN Q3HRS PRN PO HEARTBURN / GAS; Start 07/30/18 at 15:45 Calcium Carbonate/ Glycine (Tums) 500 mg PRN Q3HRS PRN PO INDIGESTION; Start at 15:45 Simethicone (Gas-X) 80 mg PRN AFTMEALHC PRN PO GAS / BLOATING Last administered on 08/02/18 08:22; Start 07/30/18 at 15:45 Diphenhydramine HCl (Benadryl) 25 mg PRN Q6HRS PRN PO ITCHING; Start 07/30/18 at 15:45 Diphenhydramine HCl (Benadryl) 25 mg PRN Q6HRS PRN IV ITCHING; Start 07/30/18 at 15:45 Zolpidem Tartrate (Ambien) 5 mg PRN QHS PRN PO INSOMNIA Last administered on 21:16; Start 07/30/18 at 15:45 Naloxone HCl (Narcan) 0.1 mg PRN Q2MIN PRN IV SEE COMMENTS; Start 07/30/18 at 15:45 Sodium Chloride (Normal Saline Flush) 3 ml QSHIFT PRN IV AFTER MEDS AND BLOOD DRAWS; Start 07/30/18 at 15:45 Sodium Chloride 1,000 ml @ 100 mls/hr Q10H IV Last administered on 08/01/18 07:57; Start 07/30/18 at 15:35 Hydromorphone HCl (Dilaudid) 0.2 mg PRN Q1HR PRN IV PAIN Last administered on 13:51; Start 07/30/18 at 15:45 Oxycodone/ Acetaminophen (Percocet 5/325) 1 tab PRN Q4HRS PRN PO MILD PAIN, 1ST CHOICE Last administered on 08/02/18 14:42; Start 07/30/18 at 15:45 Senna/Docusate Sodium (Senna Plus) 1 tab BID PO Last administered on 08/02/18 08:22; Start 07/30/18 at 21:00 Docusate Sodium (Colace) 100 mg BID PO Last administered on 08/02/18 08:22; Start 07/30/18 at 21:00 Ondansetron HCl (Zofran) 4 mg PRN Q6HRS PRN IV NAUESA, 1ST CHOICE Last administered on 3/1/19at 09:39; Start 07/30/18 at 15:45 Enoxaparin Sodium (Lovenox 40mg Syringe) 40 mg 1X ONCE SQ ; Start 07/30/18 at 20:00; Stop 07/30/18 at 20:01; Status Cancel Heparin Sodium/ Dextrose 500 ml @ 0 mls/hr CONT PRN IV SEE I/O RECORD Last administered on 08/01/18at 05:31; Start 07/30/18 at 19:00; Stop 08/01/18 at 15:07 ; Status DC Heparin Sodium (Porcine) (Heparin Sodium) 2,000 unit PRN Q6HRS PRN IV FOR UFH LEVEL LESS THAN 0.2; Start 07/30/18 at 19:00; Stop 08/01/18 at 15:07; Status DC Heparin Sodium (Porcine) (Heparin Sodium) 1,000 unit PRN Q6HRS PRN IV FOR UFH LEVEL 0.2 - 0.29 Last administered on 07/31/18at 17:31; Start 07/30/18 at 19:00; Stop 08/01/18 at 15:07; Status DC Ferrous Sulfate (Feosol) 325 mg DAILY PO Last administered on 08/02/18at 08:22; Start 07/31/18 at 09:00 Info (Anti-Coagulation Monitoring By Pharmacy) 1 each PRN DAILY PRN MC SEE COMMENTS Last administered on 08/01/18at 09:43; Start 07/31/18 at 10:45 Enoxaparin Sodium (Lovenox Per Pharmacy Treatment Dosing) 1 each PRN DAILY PRN MC SEE COMMENTS; Start 08/01/18 at 15:00 Enoxaparin Sodium (Lovenox 80mg Syringe) 70 mg Q12HR SQ Last administered on 08/02/18at 08:23; Start 08/01/18 at 15:30 Bisacodyl (Dulcolax Supp) 10 mg 1X ONCE IA Last administered on 08/02/18at 14:42 ; Start 08/02/18 at 13:45; Stop 08/02/18 at 13:46; Status DC Oxycodone/ Acetaminophen (Percocet 5/325) 2 tab PRN Q4HRS PRN PO MODERATE PAIN , SEVERE PAIN; Start 08/02/18 at 13:45 Active Scripts Active Lovenox (Enoxaparin Sodium) 80 Mg/0.8 Ml Disp.syrin 80 Mg SQ BID 7 Days Ferrous Sulfate 325 Mg Tablet 1 Tab PO DAILY Vitals/I & O Vital Sign - Last 24 Hours 08/01/18 08/01/18 08/01/18 08/01/18 16:00 16:56 17:30 17:30 Temp 98.2 98.2 98.2 98.2 Pulse 90 92 Resp 21 22 B/P (MAP) 119/89 (99) 117/88 (98) Pulse Ox 97 97 99 O2 Delivery Room Air Room Air Room Air Room Air 08/01/18 08/01/18 08/02/18 08/02/18 19:52 23:01 06:27 07:00 Temp 98.5 98.6 98.5 98.6 Pulse 91 79 Resp 16 16 21 B/P (MAP) 137/91 (106) 114/65 (81) Pulse Ox 96 96 95 O2 Delivery Room Air Room Air Room Air Room Air 08/02/18 08/02/18 08:00 14:42 Temp 98.0 98.0 Pulse 94 Resp 16 20 B/P (MAP) 130/78 (95) Pulse Ox 94 O2 Delivery Room Air Room Air Intake and Output 08/01/18 08/01/18 08/02/18 15:00 23:00 07:00 Intake Total 150 ml 369 ml 500 ml Output Total 1850 ml 300 ml 1200 ml Balance -1700 ml 69 ml -700 ml ABNER PADRON MD Aug 02, 2018 15:52
--- NOTE | 2018-08-02 17:10 | PATHOLOGY ---
[facility] Accession Number: [id number] . 01 Material submitted: . UTERUS WITH CERVIX, BILATERAL FALLOPIAN TUBES AND OVARIES . 01 Clinical history: . None provided . 02 Diagnosis: Uterine corpus with attached bilateral fallopian tubes and ovaries and detached uterine cervix, total abdominal hysterectomy with bilateral salpingo-oophorectomy: - Leiomyomas, uterine corpus, subserosal/intramural/submucosal, multiple, the largest measuring 7.0 cm in greatest dimension, with foci of infarction, hyalinization, and dystrophic calcification (uterine weight 1668 grams). - Mild chronic cervicitis with focal squamous metaplasia. - Nabothian cysts, cervix, small. - Secretory endometrium showing stromal decidualization and focal recent hemorrhage. - Adenomyosis, uterine corpus, focal. - Congestion and cystic [place]ard rests of bilateral fallopian tubes. - Few cystic follicles of bilateral ovaries. (JPM:avinash; 08/02/2018) MBR/08/02/2018 . 02 Comment: There is no atypia or evidence of malignancy. (JPM:avinash; 08/02/2018) . 02 Electronically signed: . Steven Gonzalez MD, Pathologist NPI- [id number] . 01 Gross description: . The specimen is received in formalin, labeled "Chelsea Contreras, uterus with cervix, bilateral fallopian tubes and ovaries" and consists of a previously opened, markedly enlarged, distorted, and multinodular uterus measuring 16.4 x 19.8 x 11.1 cm weighing 1668 g. Attached are bilateral adnexa consisting of a fimbriated fallopian tube (6.0 cm in length and 0.4 cm in diameter which is attached to a 3.3 x 2.5 x 1.2 cm ovary. The opposite fimbriated fallopian tube measures 6.0 cm in length and 0.5 cm in diameter which is attached to a disrupted ovary (3.0 x 2.8 x 1.7 cm). The cervix is detached, measuring 3.9 x 3.0 x 2.2 cm, and displays a 0.9 cm slitlike os surrounded by glistening pink-villafana ectocervical mucosa. Due to the markedly enlarged nature of the uterus, no orientation is able to be determined. The identifiable endocervical canal measures approximate 2.0 cm in length and is villafana and smooth. The endometrial cavity is roughly triangular measuring 10.8 cm in length and 5.0 cm in width which is lined by a polypoid, villafana-brown, lush and "heaped up" endometrium measuring up to 0.5 cm. Sectioning the cervix reveals multiple nabothian cysts measuring up to 0.6 cm. Sectioning the uterine corpus reveals a pink-villafana and severely trabeculated myometrium measuring up to 10.0 cm thickness containing multiple subserosal, intramural and submucosal fibroids measuring between 0.3 cm and 7.0 cm. A few of these nodules show areas of necrosis and hemorrhage. No additional masses or lesions are identified. . Both fimbriated fallopian tubes are barone-villafana and smooth with paratubal cysts ranging from 0.1-0.4 cm. Sectioning each reveals a well-defined central lumen with no gross lesions. Sectioning each ovary reveals multiple subcortical uniloculated cysts containing translucent fluid. Barrel Inspector sections are sent as follows: . A1-A2: Opposing cervix A3-A4: Opposing endomyometrium A5: Nodule with necrosis A6-A7: Barrel Inspector nodules A8-A9: Fallopian tube and ovary A10-A11: Opposite fallopian tube and disrupted ovary (SDY; 08/01/2018) SYU/SYU . 02 Pathologist provided ICD-10: D25.0, D25.1, D25.2, N72, N80.0 . 02 CPT . 183755 Specimen Comment: A courtesy copy of this report has been sent to Specimen Comment: [phone], , . Specimen Comment: Report sent to ,DR SMITH / DR DWYER Specimen Comment: A duplicate report has been generated due to demographic updates. Performed at: 01 [facility] [address] [facility] [address], [place] [id number] MD Jose Silveira MD Phone: [phone] Performed at: 02 [facility] [address] [place], [place] [id number] MD Steven Gonzalez MD Phone: [phone]
[2018-08-02 18:59] VITALS: BP 114/43
[2018-08-02] MEDS: POLYETHYLENE GLYCOL 3350 17 GM PACKET. PO SCH (19:30)
--- NOTE | 2018-08-03 04:17 | NUR ---
wasted Miralax 08/02/18 2100 dose after preparing, pt had BM then refused the medication.
[2018-08-03 05:02] VITALS: BP 116/75
[2018-08-03 06:30] LABS: HEMATOCRIT 32.8 % (36.0-47.0); HEMOGLOBIN 10.5 g/dL (12.0-15.5); RED BLOOD COUNT 4.1 x10^6/uL (3.50-5.40); RED CELL DISTRIBUTION WIDTH 26.3 % (11.5-14.5); WHITE BLOOD COUNT 8.9 x10^3/uL (4.0-11.0)
--- NOTE | 2018-08-03 08:01 | PDOC ---
SURGICAL PROGRESS NOTE Subjective Pt. feeling better. She denies NUNEZ, CP, SOB or abd pain. She has better appetite today and tolerating more solids. Vital Signs Vital Signs Date Time Temp Pulse Resp B/P (MAP) Pulse Ox O2 Delivery O2 Flow Rate FiO2 08/03/18 05:02 98.1 82 16 116/75 (89) 97 Room Air 98.1 I&O Intake and Output 08/03/18 06:59 Intake Total 650 ml Balance 650 ml Intake Oral 650 ml Tube Feeding 0 ml # Voids 3 PATIENT HAS A DAVID: No General: Alert, Oriented X3, Cooperative HEENT: Atraumatic Lungs: Clear to auscultation Heart: Regular rate Abdomen: Normal bowel sounds, Soft, No tenderness, No masses Psych/Mental Status: Mental status NL Labs Laboratory Tests Test 08/03/18 06:11 White Blood Count 8.9 x10^3/uL (4.0-11.0) Red Blood Count 4.10 x10^6/uL (3.50-5.40) Hemoglobin 10.5 g/dL (12.0-15.5) Hematocrit 32.8 % (36.0-47.0) Mean Corpuscular Volume 80 fL (79-100) Mean Corpuscular Hemoglobin 26 pg (25-35) Mean Corpuscular Hemoglobin Concent 32 g/dL (31-37) Red Cell Distribution Width 26.3 % (11.5-14.5) Platelet Count 291 x10^3/uL (140-400) Laboratory Tests Test 08/03/18 06:11 White Blood Count 8.9 x10^3/uL (4.0-11.0) Red Blood Count 4.10 x10^6/uL (3.50-5.40) Hemoglobin 10.5 g/dL (12.0-15.5) Hematocrit 32.8 % (36.0-47.0) Mean Corpuscular Volume 80 fL (79-100) Mean Corpuscular Hemoglobin 26 pg (25-35) Mean Corpuscular Hemoglobin Concent 32 g/dL (31-37) Red Cell Distribution Width 26.3 % (11.5-14.5) Platelet Count 291 x10^3/uL (140-400) Assessment/Plan A: POD#4 s/p SU & BSO H/o blood clots: Heparin P: Continue post op care. YUKI TEIXEIRA Jr, MD Aug 03, 2018 08:01
[2018-08-03] MEDS: FERROUS SULFATE 325 MG TABLET. PO SCH (08:58)
[2018-08-03] MEDS: DOCUSATE SODIUM 100 MG CAPSULE. PO SCH (08:58)
[2018-08-03] MEDS: SENNOSIDES/DOCUSATE 8.6/50MG TABLET. PO SCH (08:58)
[2018-08-03] MEDS: SIMETHICONE 80 MG TAB.CHEW PO PRN (09:06)
[2018-08-03] MEDS ORDERED: SENN-22 PO (09:19)
[2018-08-03] MEDS ORDERED: RIVA20TA2 PO (09:19)
--- NOTE | 2018-08-03 09:23 | PDOC3 ---
Discharge Summary Visit Information Date of Admission: Jul 30, 2018 Date of Discharge: Aug 03, 2018 Final Diagnosis 1. Extensive left leg deep venous thrombosis. 2. hx uterine fibroids, extensive post SU 07/31/2018 3. Left leg swelling - secondary to DVT, treat with lovenox, lack of left iliac vein precludes possibly of PE from left side 4. H/O DVT extensive left leg-started on Xarelto April 2018, sent home from ED with xarelto 15mg BID for 7 days and 20mg thereafter. 6. Large fibroid uterus - s/p Hys 7. H/o Precipitous drop in hemoglobin - 8 ileus Brief Hospital Course Allergies Allergies Coded Allergies Type Severity Reaction Last Updated Verified Penicillins Allergy Intermediate Rash 07/30/18 Yes Vital Signs Vital Signs Date Time Temp Pulse Resp B/P (MAP) Pulse Ox O2 Delivery O2 Flow Rate FiO2 08/03/18 08:39 Room Air 2.0 08/03/18 05:02 98.1 82 16 116/75 (89) 97 98.1 Lab Results Laboratory Tests Test 08/03/18 06:11 White Blood Count 8.9 x10^3/uL (4.0-11.0) Red Blood Count 4.10 x10^6/uL (3.50-5.40) Hemoglobin 10.5 g/dL (12.0-15.5) Hematocrit 32.8 % (36.0-47.0) Mean Corpuscular Volume 80 fL (79-100) Mean Corpuscular Hemoglobin 26 pg (25-35) Mean Corpuscular Hemoglobin Concent 32 g/dL (31-37) Red Cell Distribution Width 26.3 % (11.5-14.5) Platelet Count 291 x10^3/uL (140-400) Laboratory Tests Test 08/03/18 06:11 White Blood Count 8.9 x10^3/uL (4.0-11.0) Red Blood Count 4.10 x10^6/uL (3.50-5.40) Hemoglobin 10.5 g/dL (12.0-15.5) Hematocrit 32.8 % (36.0-47.0) Mean Corpuscular Volume 80 fL (79-100) Mean Corpuscular Hemoglobin 26 pg (25-35) Mean Corpuscular Hemoglobin Concent 32 g/dL (31-37) Red Cell Distribution Width 26.3 % (11.5-14.5) Platelet Count 291 x10^3/uL (140-400) Brief Hospital Course Ms. Contreras is a 53 old female, amdit due to bleeding, iron def. anemia, large uterine fibroid Hys surg done by Dr. Soler, post op ileus, resolved DVT known since 04/21, has been on Xarelto 20 at home for > 3 mos. heparin gtt here, then lovenox, will transition back to Xarelto. Discharge Information Condition at Discharge: Improved Follow Up: Weeks Disposition/Orders: D/C to Home Scheduled Enoxaparin Sodium (Lovenox) 80 Mg/0.8 Ml Disp.syrin, 80 MG SQ BID for ANTI- COAGULANT for 7 Days, #14 Prescribed by: KAITLYN ORR MD on 07/23/18 1312 Last Taken: Unknown Dose on 07/28/182029 Last Action: HELD on 07/30/181855 by DENISHA DWYER MD Ferrous Sulfate (Ferrous Sulfate) 325 Mg Tablet, 1 TAB PO DAILY for savanna, #30 Ref 3 Prescribed by: DANIELLE EDWARDS on 07/07/18805 Last Taken: Unknown Dose on 07/29/18 0800 Last Action: Continued on 1855 by DENISHA DWYER MD Rivaroxaban (Xarelto) 20 Mg Tablet, 20 MG PO DAILY for DVT, #30 Ref 2 Prescribed by: ABNER PADRON on 08/03/18918 Scheduled PRN Sennosides/Docusate Sodium (Senna-Time S Tablet) 1 Each Tablet, 1 TAB PO BID PRN for CONSTIPATION, #30 Prescribed by: ABNER PADRON on 08/03/18918 Patient Instructions Patient Instructions > 30 minutes face to face ABNER PADRON MD Aug 03, 2018 09:22
[2018-08-03 09:57] VITALS: BP 128/88
--- NOTE | 2018-08-03 10:01 | NUR ---
home instructions gone over with pt and her mother. to see dr barber in 1 week. Has script for percocet xarelto and senna. instructed no to get constipated. Any problems to call or return to ed for assistance,
== END 2018-08-03 10:18 | disposition home or self-care (01) | DRG 742 ==
LOC: OPSVCIP 11:53 → 1 WEST ICU 18:00 → 3 NORTH 08-01 18:43
PROVIDERS: ADMIT Specialist; ATTEND Family Medicine
PROC: 0UT70ZZ Resection of Bilateral Fallopian Tubes, Open Approach (ICD-10-PCS; 2018-07-30)
PROC: 0T788DZ Dilation of Bilateral Ureters with Intraluminal Device, Via Natural or Artificial Opening Endoscopic (ICD-10-PCS; 2018-07-30)
PROC: 0TP90DZ Removal of Intraluminal Device from Ureter, Open Approach (ICD-10-PCS; 2018-07-30)
PROC: 0UT90ZZ Resection of Uterus, Open Approach (ICD-10-PCS; principal; 2018-07-30 13:30)
PROC: 0UT20ZZ Resection of Bilateral Ovaries, Open Approach (ICD-10-PCS; 2018-07-30 13:30)
DX: D25.9 Leiomyoma of uterus, unspecified (principal); I82.402 Acute embolism and thrombosis of unspecified deep veins of left lower extremity; D71 Functional disorders of polymorphonuclear neutrophils; K80.20 Calculus of gallbladder without cholecystitis without obstruction; K86.89 Other specified diseases of pancreas; Z86.718 Personal history of other venous thrombosis and embolism; Z79.01 Long term (current) use of anticoagulants; D50.9 Iron deficiency anemia, unspecified
CPT/HCPCS: 36415; 80048; 80053; 82728; 83540; 83550; 85014; 85025; 85027; 85520; 86850; 86900; 86901; 86920; 87641; 88307; A7015; J0780; J1100; J1170; J1644; J1650; J1885; J2001; J2270; J2405; J2704; J2710; J3010; J3490; J7030; J7120; A4461; C1769

== ENCOUNTER → 2019-04-22 | Outpatient (CLI) | payer MEDICARE ==
[~2019-04-22] MED LIST changes: -GLYCOPYRROLATE 1 MG/5 ML VIAL. IV ONE; -IV RINGERS,LACTATED 1000ML 1,000 ML IV SCH; -LIDOCAINE 1% PF 2 ML VIAL. ID PRN; -ONDANSETRON PF 4 MG/2 ML VIAL. IV PRN; +RIVA20TA2 PO; +SENN-22 PO; -fentaNYL PF VIAL 100 MCG/2 ML VIAL IV PRN
--- NOTE | 2019-04-22 09:23 | KCIC ---
EXAM: Left lower extremity venous Doppler sonogram. HISTORY: DVT. TECHNIQUE: Gabriel scale and color Doppler sonographic evaluation of the left lower extremity veins with spectral waveform analysis was performed. FINDINGS: There is nonocclusive chronic appearing thrombus throughout the left lower extremity veins, including the common femoral, superficial femoral, popliteal, posterior tibial, peroneal and greater saphenous veins. IMPRESSION: Nonocclusive chronic-appearing thrombus throughout the deep and superficial left lower extremity veins. This was previously occlusive thrombus on the exam dated 07/21/2018. Electronically signed by: Zuleyka Whitten MD (04/22/2019 9:20 AM) [place] [id number]
--- NOTE | 2019-04-22 16:39 | KCIC ---
EXAM: CT OF THE CHEST WITHOUT CONTRAST. HISTORY: Lung nodule follow-up. TECHNIQUE: Computed tomography of the chest was performed without intravenous contrast. COMPARISON: 07/21/2018. FINDINGS: Images of the upper abdomen reveal a 2.1 cm gallstone. The gallbladder does not appear inflamed. Bone windows reveal no suspicious lesions. Calcified mediastinal lymph nodes are likely secondary to old granulomatous disease. There are no pathologically enlarged mediastinal or axillary lymph nodes. There is no pleural or pericardial effusion. The heart is not enlarged. A groundglass nodule in the right lower lobe on image 115 measures 10 x 8 mm. Previously it measured 9 x 7 mm. There is mild atelectasis in the bases. No additional suspicious nodules are seen. IMPRESSION: 1. A 10 mm groundglass nodule in the right lower lobe appears slightly increased. Low-grade malignancy such as bronchial alveolar carcinoma cannot be excluded. Ongoing follow-up short interval follow-up/management is recommended. 2. Cholelithiasis. *One or more of the following individualized dose reduction techniques were utilized for this examination: 1. Automated exposure control. 2. Adjustment of the mA and/or kV according to patient size. 3. Use of iterative reconstruction technique. Electronically signed by: Lucio Prather MD (04/22/2019 4:36 PM) [facility]
--- NOTE | 2019-04-23 12:51 | KCIC ---
Bilateral digital screening mammograms: Reason for examination: Routine screening. Comparison is made to previous study dated 10/22/2008. Interpretation was made with the benefit of CAD. The skin and nipples show no abnormalities. No abnormal axillary lymph nodes are seen. The breast parenchyma shows scattered fibroglandular density. (Breast density: Category B.) There are no dominant masses, suspicious calcifications or architectural distortions. Impression: No evidence of malignancy. Recommend routine screening. BI-RADS Category 1: Negative. "Our facility is accredited by the [employer] Mammography Program." This patient's information has been entered into a reminder system for the patient to be notified with the results of her examination and a target date for the next mammogram. Electronically signed by: Yary Ochoa MD (04/23/2019 12:47 PM) [id number]
== END | disposition home or self-care (01) ==
LOC: KCIC US 08:34
PROVIDERS: ATTEND Family Medicine
DX: Z12.31 Encounter for screening mammogram for malignant neoplasm of breast (principal); I82.412 Acute embolism and thrombosis of left femoral vein; I82.432 Acute embolism and thrombosis of left popliteal vein; I82.442 Acute embolism and thrombosis of left tibial vein; I82.452 Acute embolism and thrombosis of left peroneal vein; I82.812 Embolism and thrombosis of superficial veins of left lower extremity; R91.1 Solitary pulmonary nodule; K80.20 Calculus of gallbladder without cholecystitis without obstruction; J98.11 Atelectasis
CPT/HCPCS: 71250; 77067; 93971